=== PATIENT | female | born 1975 | race Caucasian/White ===

== ENCOUNTER 2017-01-21 08:24 | Emergency (ER) | payer OTHER ==
[2017-01-21] MEDS ORDERED: HYDROmorphone 1 MG/ML 1 ML SYRINGE IVP STA ×2 (08:51→11:13)
[2017-01-21] MEDS ORDERED: SODIUM CHLORIDE 0.9% 1,000 ML IV ONE (08:51)
[2017-01-21] MEDS ORDERED: ONDANSETRON 4 MG/2 ML VIAL IVP STA (08:51)
--- NOTE | 2017-01-21 08:54 | ED ---
Abdominal Pain HPI - General Chief Complaint: Abdominal Pain Stated Complaint: bladder kidney infection Time Seen by Provider: 01/21/17 08:31 Source: patient, RN notes reviewed Mode of arrival: ambulatory Limitations: no limitations - History of Present Illness Initial Comments: Patient is a 41-year-old female presents to the emergency room for evaluation of left-sided flank pain and dysuria. Patient states last night she began experiencing suprapubic pain and pain/burning during urination. Patient states around 2:00 the morning the pain began radiating into her left flank area. Patient states she's also had diarrhea throughout the night. Patient denies new foods. Patient denies recent travel outside the country. Patient states she's feeling nauseous but denies vomiting. Patient denies any known fevers or chills. Patient denies chest pain or shortness of breath. Patient denies headache or dizziness. - Related Data Home Medications Medication Instructions Recorded Confirmed Cetirizine HCl [Zyrtec] 10 mg PO DAILY 01/21/17 01/21/17 Fluticasone Nasal [place] [Flonase 1 spray EA NOSTRIL BID PRN 01/21/17 01/21/17 Nasal [place]] Gabapentin [Neurontin] 100 mg PO TID 01/21/17 01/21/17 Ibuprofen [Motrin] 800 mg PO TID PRN 01/21/17 01/21/17 LORazepam [Ativan] 1 mg PO DAILY PRN 01/21/17 01/21/17 Meloxicam [Mobic] 15 mg PO DAILY PRN 01/21/17 01/21/17 Sertraline [Zoloft] 50 mg PO DAILY 01/21/17 01/21/17 traMADol HCL [Ultram] 50 mg PO DAILY PRN 01/21/17 01/21/17 Previous Rx's Medication Instructions Recorded HYDROcodone/APAP 5-325MG [[place] 1 tab PO Q6HR PRN #8 tab 01/21/17 5-325] Phenazopyridine [Pyridium] 200 mg PO TID #5 tablet 01/21/17 Sulfamethox-Tmp 800-160Mg [Bactrim 1 tab PO Q12HR 7 Days 01/21/17 DS 800-160 mg] Allergies Allergy/AdvReac Type Severity Reaction Status Date / Time codeine Allergy Rash/Hives Verified 01/21/17 09:17 Review of Systems ROS Statement: Those systems with pertinent positive or pertinent negative responses have been documented in the HPI. ROS Other: All systems not noted in ROS Statement are negative. Past Medical History Additional Past Medical History / Comment(s): back pain History of Any Multi-Drug Resistant Organisms: None Reported Past Surgical History: Section Past Psychological History: No Psychological Hx Reported Smoking Status: Current every day smoker Past Alcohol Use History: None Reported Past Drug Use History: None Reported General Exam - General Exam Comments Initial Comments: Sitting in exam room. No distress. Limitations: no limitations General appearance: alert, in no apparent distress Head exam: Present: atraumatic, normocephalic, normal inspection Eye exam: Present: normal appearance ENT exam: Present: normal exam Neck exam: Present: normal inspection Respiratory exam: Present: normal lung sounds bilaterally. Absent: respiratory distress Cardiovascular Exam: Present: regular rate, normal rhythm, normal heart sounds GI/Abdominal exam: Present: soft, normal bowel sounds. Absent: distended, tenderness, guarding, rebound, rigid Extremities exam: Present: normal inspection Back exam: Present: normal inspection, CVA tenderness (L). Absent: CVA tenderness (R) Neurological exam: Present: alert, oriented X3, CN II-XII intact, normal gait Psychiatric exam: Present: normal affect, normal mood Skin exam: Present: warm, dry, intact, normal color. Absent: rash Course Vital Signs 01/21/17 01/21/17 01/21/17 08:25 09:28 10:00 Temperature 98.8 F Pulse Rate 81 56 L 62 Respiratory 17 20 20 Rate Blood Pressure 133/77 131/60 137/70 O2 Sat by Pulse 98 100 99 Oximetry 01/21/17 01/21/17 01/21/17 11:00 11:38 12:00 Temperature 98.0 F Pulse Rate 70 73 57 L Respiratory 20 20 Rate Blood Pressure 134/62 170/74 131/59 O2 Sat by Pulse 97 98 Oximetry 01/21/17 12:52 Temperature 98.8 F Pulse Rate Respiratory Rate Blood Pressure O2 Sat by Pulse Oximetry Medical Decision Making - Medical Decision Making Patient's 41-year-old female presents to the emergency room for evaluation of dysuria and left-sided flank pain. CT shows no acute findings. Urinalysis suspicious for urinary tract infection. Patient will be treated for urinary tract infection. Patient was sent home with antibiotics and advised follow-up with primary care provider. Patient states she understands everything that was discussed with her. Return parameters discussed. Case discussed Dr. Phillips. - Lab Data Result diagrams: 01/21/17 08:48 01/21/17 08:48 Lab Results 01/21/17 01/21/17 01/21/17 Range/Units 08:28 08:28 08:48 WBC (3.8-10.6) k/uL RBC (3.80-5.40) m/uL Hgb (11.4-16.0) gm/dL Hct (34.0-46.0) % MCV (80.0-100.0) fL MCH (25.0-35.0) pg MCHC (31.0-37.0) g/dL RDW (11.5-15.5) % Plt Count (150-450) k/uL Neutrophils % % Lymphocytes % % Monocytes % % Eosinophils % % Basophils % % Neutrophils # (1.3-7.7) k/uL Lymphocytes # (1.0-4.8) k/uL Monocytes # (0-1.0) k/uL Eosinophils # (0-0.7) k/uL Basophils # (0-0.2) k/uL Sodium 143 (137-145) mmol/L Potassium 3.8 (3.5-5.1) mmol/L Chloride 110 H (98-107) mmol/L Carbon Dioxide 25 (22-30) mmol/L Anion Gap 8 mmol/L BUN 10 (7-17) mg/dL Creatinine 0.68 (0.52-1.04) mg/dL Est GFR (MDRD) Af Amer >60 (>60 ml/min/1.73 sqM) Est GFR (MDRD) Non-Af >60 (>60 ml/min/1.73 sqM) Glucose 105 H (74-99) mg/dL Calcium 9.5 (8.4-10.2) mg/dL Total Bilirubin 0.2 (0.2-1.3) mg/dL AST 16 (14-36) U/L ALT 14 (9-52) U/L Alkaline Phosphatase 58 (38-126) U/L Total Protein 6.0 L (6.3-8.2) g/dL Albumin 3.8 (3.5-5.0) g/dL Amylase 43 (30-110) U/L Lipase 134 (23-300) U/L Urine Color Yellow Urine Appearance Turbid H (Clear) Urine pH 6.0 (5.0-8.0) Ur Specific [place] 1.019 (1.001-1.035) Urine Protein 1+ H (Negative) Urine Glucose (UA) Negative (Negative) Urine Ketones Negative (Negative) Urine Blood Moderate H (Negative) Urine Nitrite Negative (Negative) Urine Bilirubin Negative (Negative) Urine Urobilinogen <2.0 (<2.0) mg/dL Ur Leukocyte Esterase Large H (Negative) Urine RBC 5 (0-5) /hpf Urine WBC 71 H (0-5) /hpf Urine WBC Clumps Many H (None) /hpf Ur Squamous Epith Cells 156 H (0-4) /hpf Urine Bacteria Moderate H (None) /hpf Urine Mucus Many H (None) /hpf Urine HCG, Qual Not Detected (Not Detectd) 01/21/17 Range/Units 08:48 WBC 8.2 (3.8-10.6) k/uL RBC 4.35 (3.80-5.40) m/uL Hgb 14.1 (11.4-16.0) gm/dL Hct 40.7 (34.0-46.0) % MCV 93.4 (80.0-100.0) fL MCH 32.3 (25.0-35.0) pg MCHC 34.6 (31.0-37.0) g/dL RDW 13.5 (11.5-15.5) % Plt Count 406 (150-450) k/uL Neutrophils % 66 % Lymphocytes % 26 % Monocytes % 5 % Eosinophils % 1 % Basophils % 1 % Neutrophils # 5.4 (1.3-7.7) k/uL Lymphocytes # 2.1 (1.0-4.8) k/uL Monocytes # 0.4 (0-1.0) k/uL Eosinophils # 0.1 (0-0.7) k/uL Basophils # 0.1 (0-0.2) k/uL Sodium (137-145) mmol/L Potassium (3.5-5.1) mmol/L Chloride (98-107) mmol/L Carbon Dioxide (22-30) mmol/L Anion Gap mmol/L BUN (7-17) mg/dL Creatinine (0.52-1.04) mg/dL Est GFR (MDRD) Af Amer (>60 ml/min/1.73 sqM) Est GFR (MDRD) Non-Af (>60 ml/min/1.73 sqM) Glucose (74-99) mg/dL Calcium (8.4-10.2) mg/dL Total Bilirubin (0.2-1.3) mg/dL AST (14-36) U/L ALT (9-52) U/L Alkaline Phosphatase (38-126) U/L Total Protein (6.3-8.2) g/dL Albumin (3.5-5.0) g/dL Amylase (30-110) U/L Lipase (23-300) U/L Urine Color Urine Appearance (Clear) Urine pH (5.0-8.0) Ur Specific [place] (1.001-1.035) Urine Protein (Negative) Urine Glucose (UA) (Negative) Urine Ketones (Negative) Urine Blood (Negative) Urine Nitrite (Negative) Urine Bilirubin (Negative) Urine Urobilinogen (<2.0) mg/dL Ur Leukocyte Esterase (Negative) Urine RBC (0-5) /hpf Urine WBC (0-5) /hpf Urine WBC Clumps (None) /hpf Ur Squamous Epith Cells (0-4) /hpf Urine Bacteria (None) /hpf Urine Mucus (None) /hpf Urine HCG, Qual (Not Detectd) - Radiology Data Radiology results: report reviewed, image reviewed Disposition Clinical Impression: Urinary tract infection Disposition: HOME SELF-CARE Condition: Good Instructions: Urinary Tract Infection in Women (ED) Additional Instructions: Take antibiotics as directed. Please follow up with primary care provider in 1- 2 days. If any new symptom arises or symptoms worsen, return to ER as soon as possible. Prescriptions: HYDROcodone/APAP 5-325MG [[place] 5-325] 1 tab PO Q6HR PRN #8 tab PRN Reason: Pain Sulfamethox-Tmp 800-160Mg [Bactrim DS 800-160 mg] 1 tab PO Q12HR 7 Days Phenazopyridine [Pyridium] 200 mg PO TID #5 tablet Referrals: Mai Duncan MD [Primary Care Provider] - 1-2 days Time of Disposition: 11:20
[2017-01-21 09:08] LABS: Basophils # (A) 0.1 k/uL (0-0.2); Basophils % (A) 1 %; CH 31.5; CHCM 33.9; Eosinophils # (A) 0.1 k/uL (0-0.7); Eosinophils % (A) 1 %; HCT 40.7 % (34.0-46.0); HGB 14.1 gm/dL (11.4-16.0); Luc # (Auto) 0.16; Luc % (Auto) 2; Lymphocytes # (A) 2.1 k/uL (1.0-4.8); Lymphocytes % (A) 26 %; MCH 32.3 pg (25.0-35.0); MCHC 34.6 g/dL (31.0-37.0); MCV 93.4 fL (80.0-100.0); Monocytes # (A) 0.4 k/uL (0-1.0); Monocytes % (A) 5 %; Neutrophils # (A) 5.4 k/uL (1.3-7.7); Neutrophils % (A) 66 %; RBC 4.35 m/uL (3.80-5.40); RDW 13.5 % (11.5-15.5); WBC 8.2 k/uL (3.8-10.6); WBC (Perox) 8.54
[2017-01-21 09:13] LABS: Appearance,Urine Turbid (Clear); Bacteria,Urine Moderate /hpf; Bilirubin,Urine Negative (Negative); Glucose,Urine (UA) Negative (Negative); Ketones,Urine Negative (Negative); Leukocyte Esterase,Urine Large (Negative); Mucus,Urine Many /hpf; Nitrite,Urine Negative (Negative); Particle Count 38142; Protein,Urine 1+ (Negative); RBC,Urine 5 /hpf (0-5); Specific Gravity,Urine 1.019 (1.001-1.035); Squamous Epithelial Cell,Urine 156 /hpf (0-4); UA Billing (MACRO vs. MICRO) MICRO; Urobilinogen,Urine <2.0 mg/dL (<2.0); WBC,Urine 71 /hpf (0-5)
--- NOTE | 2017-01-21 09:19 | XR ---
EXAMINATION TYPE: XR KUB DATE OF EXAM: 01/21/2017 CLINICAL DATA: 41 year-old female left flank pain and hematuria, [facility] COMPARISON: 04/26/2013 FINDINGS: Lung bases are clear. No evidence for free intraperitoneal air. No dilated small bowel or air-fluid levels. Scattered air and stool seen throughout the colon extendi ng distally into the rectum. No significant stool burden. There is an indeterminate 3 mm calcification in the right hemipelvis. Stable phleboliths in the left hemipelvis. IMPRESSION: 1. Indeterminate 3 mm calcification in the right hemipelvis, phlebolith versus distal ureteral calcul us. Clinically correlate. 2.No evidence of bowel obstruction or free intraperitoneal air.
[2017-01-21 09:26] LABS: ALT 14 U/L (9-52); AST 16 U/L (14-36); Alkaline Phosphatase 58 U/L (38-126); Amylase 43 U/L (30-110); Anion Gap 8 mmol/L; Blood Urea Nitrogen 10 mg/dL (7-17); Calcium 9.5 mg/dL (8.4-10.2); Carbon Dioxide 25 mmol/L (22-30); Chloride 110 mmol/L (98-107); Glucose 105 mg/dL (74-99); Non-African American GFR(MDRD) >60 (>60 ml/min/1.73 sqM); Potassium 3.8 mmol/L (3.5-5.1); Sodium 143 mmol/L (137-145); Total Bilirubin 0.2 mg/dL (0.2-1.3)
[2017-01-21 09:46] VITALS: RESP 20
[2017-01-21] MEDS ORDERED: KETOROLAC 30 MG/ML 1 ML VIAL IVP STA (10:12)
--- NOTE | 2017-01-21 10:44 | CT ---
EXAMINATION TYPE: CT abdomen pelvis wo con DATE OF EXAM: 01/21/2017 COMPARISON: NONE HISTORY: abdominal pain, hematuria CT DLP: 276.9 mGycm Automated exposure control for dose reduction was used. TECHNIQUE: Helical acquisition of images was performed from the lung bases through the pelvis. FINDINGS: LUNG BASES: Subsegmental linear changes most typical scar or atelectasis. The right cardiophrenic ang le mass measuring 3 cm.. LIVER/GB: Liver measures 23 cm.. PANCREAS: No significant abnormality is seen. SPLEEN: No significant abnormality is seen. ADRENALS: No significant abnormality is seen. KIDNEYS: No significant abnormality is seen. URINARY BLADDER: No significant abnormality is seen. ADENOPATHY: None visualized. OSSEOUS STRUCTURES: Vacuum disc and severe degenerative disc disease L4-5. BOWEL: No significant abnormality is seen. OTHER: Aorta of normal caliber. Calcifications in the pelvis appear vascular. IMPRESSION: 1. No evidence of renal calcification or hydronephrosis. 2. 3 cm right cardiophrenic angle mass could be on the basis of an area of lymphadenopathy. Correlate clinically. 3. Liver measures 23 cm correlate for hepatomegaly
[2017-01-21] MEDS ORDERED: PHENAZOPYRIDINE 200 MG TAB PO STA (11:23)
[2017-01-21 12:25] VITALS: BP 131/59; PULSE 57
[2017-01-21 12:53] VITALS: TEMP 98.8
== END 2017-01-21 12:53 | disposition home or self-care (01) ==
LOC: EC 08:24
DX: N39.0 Urinary tract infection, site not specified (principal); R11.0 Nausea; F17.200 Nicotine dependence, unspecified, uncomplicated; Z79.899 Other long term (current) drug therapy; Z88.5 Allergy status to narcotic agent
CPT/HCPCS: 99285; 96365; 96375 ×3; 96376; 96361; 36415; 80053; 82150; 83690; 85025; 81001; 81025; 87491; 87591; 74000; 74176; J2405; J0696; J1885; J1170

== ENCOUNTER 2017-01-23 15:15 | Emergency (ER) | payer OTHER ==
[2017-01-23] MEDS ORDERED: ONDANSETRON 4 MG/2 ML VIAL IVP STA (15:47)
[2017-01-23] MEDS ORDERED: KETOROLAC 30 MG/ML 1 ML VIAL IVP STA (15:48)
[2017-01-23] MEDS ORDERED: HYDROmorphone 1 MG/ML 1 ML SYRINGE IVP STA ×2 (15:48→18:42)
--- NOTE | 2017-01-23 15:53 | ED ---
General Adult HPI - General Chief complaint: Abdominal Pain Stated complaint: bladder infection/vomiting-revisit Time Seen by Provider: 01/23/17 15:33 Source: patient, RN notes reviewed Mode of arrival: ambulatory Limitations: no limitations - History of Present Illness Initial comments: Patient is a 41-year-old female presents to the emergency room for evaluation of flank pain. Patient states she was here about 2 days ago and diagnosed with urinary tract infection. Patient states she was given a dose of IV antibiotics and sent home with Bactrim. Patient states that the day after she was sent home she began with vomiting. Patient states she also began with diarrhea. Patient states that she has not been able to keep any of her medications down. Patient is having worsening flank pain. She states she had a fever last night but it broke. Patient states she still nauseous with vomiting. Patient states she's having lower abdominal discomfort. Patient denies chest pain or shortness of breath. Patient denies headache or dizziness. Patient states she still having burning during urination. - Related Data Home Medications Medication Instructions Recorded Confirmed Cetirizine HCl [Zyrtec] 10 mg PO DAILY 01/21/17 01/23/17 Fluticasone Nasal [place] [Flonase 1 spray EA NOSTRIL BID PRN 01/21/17 01/23/17 Nasal [place]] Gabapentin [Neurontin] 100 mg PO TID 01/21/17 01/23/17 Ibuprofen [Motrin] 800 mg PO TID PRN 01/21/17 01/23/17 LORazepam [Ativan] 1 mg PO DAILY PRN 01/21/17 01/23/17 Meloxicam [Mobic] 15 mg PO DAILY PRN 01/21/17 01/23/17 Sertraline [Zoloft] 50 mg PO DAILY 01/21/17 01/23/17 traMADol HCL [Ultram] 50 mg PO DAILY PRN 01/21/17 01/23/17 Phenazopyridine [Pyridium] 200 mg PO TID PRN 01/23/17 01/23/17 Previous Rx's Medication Instructions Recorded HYDROcodone/APAP 5-325MG [[place] 1 tab PO Q6HR PRN #8 tab 01/21/17 5-325] Sulfamethox-Tmp 800-160Mg [Bactrim 1 tab PO Q12HR 7 Days 01/21/17 DS 800-160 mg] Ondansetron Odt [Zofran Odt] 4 mg PO Q8HR PRN #12 tab 01/23/17 Allergies Allergy/AdvReac Type Severity Reaction Status Date / Time codeine Allergy Rash/Hives Verified 01/23/17 16:02 Review of Systems ROS Statement: Those systems with pertinent positive or pertinent negative responses have been documented in the HPI. ROS Other: All systems not noted in ROS Statement are negative. Past Medical History Additional Past Medical History / Comment(s): back pain History of Any Multi-Drug Resistant Organisms: None Reported Past Surgical History: Section Past Psychological History: No Psychological Hx Reported Smoking Status: Current every day smoker Past Alcohol Use History: None Reported Past Drug Use History: None Reported General Exam - General Exam Comments Initial Comments: Sitting in exam room, no acute distress. Limitations: no limitations General appearance: alert, in no apparent distress Head exam: Present: atraumatic, normocephalic, normal inspection Eye exam: Present: normal appearance ENT exam: Present: normal exam Neck exam: Present: normal inspection Respiratory exam: Present: normal lung sounds bilaterally. Absent: respiratory distress Cardiovascular Exam: Present: regular rate, normal rhythm, normal heart sounds GI/Abdominal exam: Present: soft, normal bowel sounds. Absent: distended, tenderness, guarding, rebound, rigid Extremities exam: Present: normal inspection Back exam: Present: normal inspection, CVA tenderness (R), CVA tenderness (L) Neurological exam: Present: alert, oriented X3, CN II-XII intact, normal gait Psychiatric exam: Present: normal affect, normal mood Skin exam: Present: warm, dry, intact, normal color. Absent: rash Course Vital Signs 01/23/17 01/23/17 01/23/17 15:29 16:30 18:11 Temperature 98.3 F Pulse Rate 85 61 75 Respiratory 20 16 16 Rate Blood Pressure 137/68 142/72 121/79 O2 Sat by Pulse 98 97 97 Oximetry Medical Decision Making - Medical Decision Making Patient is a 41-year-old female presents to the emergency room for evaluation of continuing flank pain. Patient was diagnosed with urinary tract infection 2 days ago. Patient returning for flank pain and vomiting. Labs show no concerning findings. Urinalysis still show signs of urinary tract infection. Patient was offered another CT with contrast. CT abdomen/pelvis again shows no acute findings. Patient will be given a dose of IV Rocephin and sent home. Patient advised to follow-up with primary care provider. Patient states she understands everything that was discussed with her. Return parameters discussed. Case discussed Dr. Rothman. - Lab Data Result diagrams: 01/23/17 16:20 01/23/17 16:20 Lab Results 01/23/17 01/23/17 01/23/17 Range/Units 16:20 16:20 16:20 WBC 8.6 (3.8-10.6) k/uL RBC 4.40 (3.80-5.40) m/uL Hgb 14.2 (11.4-16.0) gm/dL Hct 41.1 (34.0-46.0) % MCV 93.5 (80.0-100.0) fL MCH 32.3 (25.0-35.0) pg MCHC 34.5 (31.0-37.0) g/dL RDW 13.3 (11.5-15.5) % Plt Count 373 (150-450) k/uL Neutrophils % 79 % Lymphocytes % 16 % Monocytes % 3 % Eosinophils % 1 % Basophils % 1 % Neutrophils # 6.8 (1.3-7.7) k/uL Lymphocytes # 1.4 (1.0-4.8) k/uL Monocytes # 0.3 (0-1.0) k/uL Eosinophils # 0.0 (0-0.7) k/uL Basophils # 0.0 (0-0.2) k/uL Sodium 141 (137-145) mmol/L Potassium 4.4 (3.5-5.1) mmol/L Chloride 107 (98-107) mmol/L Carbon Dioxide 24 (22-30) mmol/L Anion Gap 10 mmol/L BUN 14 (7-17) mg/dL Creatinine 0.80 (0.52-1.04) mg/dL Est GFR (MDRD) Af Amer >60 (>60 ml/min/1.73 sqM) Est GFR (MDRD) Non-Af >60 (>60 ml/min/1.73 sqM) Glucose 87 (74-99) mg/dL Calcium 9.6 (8.4-10.2) mg/dL Magnesium 2.1 (1.6-2.3) mg/dL Total Bilirubin 0.3 (0.2-1.3) mg/dL AST 16 (14-36) U/L ALT 23 (9-52) U/L Alkaline Phosphatase 66 (38-126) U/L Total Protein 6.2 L (6.3-8.2) g/dL Albumin 3.9 (3.5-5.0) g/dL Urine Color Yellow Urine Appearance Clear (Clear) Urine pH 6.5 (5.0-8.0) Ur Specific [place] 1.024 (1.001-1.035) Urine Protein Trace H (Negative) Urine Glucose (UA) Negative (Negative) Urine Ketones 2+ H (Negative) Urine Blood Small H (Negative) Urine Nitrite Negative (Negative) Urine Bilirubin Negative (Negative) Urine Urobilinogen 2.0 (<2.0) mg/dL Ur Leukocyte Esterase Negative (Negative) Urine WBC 2 (0-5) /hpf Ur Squamous Epith Cells 4 (0-4) /hpf Urine Mucus Many H (None) /hpf - Radiology Data Radiology results: report reviewed, image reviewed Disposition Clinical Impression: Flank pain, Nausea & vomiting Disposition: HOME SELF-CARE Condition: Good Instructions: Flank Pain (ED) Additional Instructions: Take Zofran as needed for nausea. Continue taking antibiotics as directed. Please follow up with primary care provider in 24-48 hours for reevaluation. If any new symptom arises or symptoms worsen, return to ER as soon as possible. Prescriptions: Ondansetron Odt [Zofran Odt] 4 mg PO Q8HR PRN #12 tab PRN Reason: Nausea Referrals: Mai Duncan MD [Primary Care Provider] - 1-2 days Time of Disposition: 18:28
[2017-01-23 16:37] LABS: Basophils % (A) 1 %; CH 31.9; CHCM 34.3; Eosinophils % (A) 1 %; HCT 41.1 % (34.0-46.0); HDW 2.41; HGB 14.2 gm/dL (11.4-16.0); Luc # (Auto) 0.08; Luc % (Auto) 1; Lymphocytes # (A) 1.4 k/uL (1.0-4.8); Lymphocytes % (A) 16 %; MCH 32.3 pg (25.0-35.0); MCHC 34.5 g/dL (31.0-37.0); MCV 93.5 fL (80.0-100.0); Mean Platelet Volume 7.6; Monocytes # (A) 0.3 k/uL (0-1.0); Monocytes % (A) 3 %; Neutrophils # (A) 6.8 k/uL (1.3-7.7); Neutrophils % (A) 79 %; RDW 13.3 % (11.5-15.5); WBC 8.6 k/uL (3.8-10.6); WBC (Perox) 9.05
[2017-01-23 16:39] LABS: Appearance,Urine Clear (Clear); Bilirubin,Urine Negative (Negative); Glucose,Urine (UA) Negative (Negative); Ketones,Urine 2+ (Negative); Leukocyte Esterase,Urine Negative (Negative); Mucus,Urine Many /hpf; Nitrite,Urine Negative (Negative); PH, Urine 6.5 (5.0-8.0); Particle Count 7369; Protein,Urine Trace (Negative); Specific Gravity,Urine 1.024 (1.001-1.035); Squamous Epithelial Cell,Urine 4 /hpf (0-4); UA Billing (MACRO vs. MICRO) MICRO; WBC,Urine 2 /hpf (0-5)
[2017-01-23 16:49] LABS: ALT 23 U/L (9-52); AST 16 U/L (14-36); Alkaline Phosphatase 66 U/L (38-126); Anion Gap 10 mmol/L; Blood Urea Nitrogen 14 mg/dL (7-17); Calcium 9.6 mg/dL (8.4-10.2); Carbon Dioxide 24 mmol/L (22-30); Chloride 107 mmol/L (98-107); Glucose 87 mg/dL (74-99); Magnesium 2.1 mg/dL (1.6-2.3); Non-African American GFR(MDRD) >60 (>60 ml/min/1.73 sqM); Potassium 4.4 mmol/L (3.5-5.1); Sodium 141 mmol/L (137-145); Total Bilirubin 0.3 mg/dL (0.2-1.3); Total Protein 6.2 g/dL (6.3-8.2)
[2017-01-23] MEDS ORDERED: SODIUM CHLORIDE 0.9% 1,000 ML IV ONE (17:23)
[2017-01-23] MEDS ORDERED: RX INFO: IV CONTRAST WAS GIVEN 1 EACH MISC MISCELLANE PRN (17:26)
--- NOTE | 2017-01-23 18:03 | CT ---
EXAMINATION TYPE: CT abdomen pelvis w con DATE OF EXAM: 01/23/2017 COMPARISON: 01/21/2017 HISTORY: Abominal pain with vomiting and diarrhea. CT DLP: 384.4 mGycm Automated exposure control for dose reduction was used. TECHNIQUE: Helical acquisition of images was performed from the lung bases through the pelvis. CONTRAST: Performed without Oral Contrast and with IV Contrast, patient injected with 100 mL of Omnipaque 300. FINDINGS: Lung bases are clear. There is no pleural effusion. Heart size is normal. There is a 3 x 2 cm oval-sh aped low-density area adjacent to the right cardiac border that is probably a pericardial cyst. The liver spleen pancreas appear normal. Gallbladder appears normal. Bile ducts are not dilated. Ther e is no adrenal mass. Kidneys show satisfactory contrast opacification. There is no hydronephrosis. T here is no ascites. There is no sign of free air. I see no intestinal wall thickening. There are no d ilated loops. Appendix appears normal. There is no sign of a pelvic mass. Bladder distends smoothly. There is no retroperitoneal adenopathy. IMPRESSION: NEGATIVE CT SCAN OF THE ABDOMEN AND PELVIS. NORMAL APPENDIX. THERE IS PROBABLY A PERICARDIAL CYST WIT HOUT CHANGE COMPARED TO LAST EXAM.
[2017-01-23 19:08] VITALS: BP 123/80; PULSE 67; RESP 18; TEMP 97.5
== END 2017-01-23 20:00 | disposition home or self-care (01) ==
LOC: EC 15:15
DX: R10.9 Unspecified abdominal pain (principal); R11.2 Nausea with vomiting, unspecified; F17.200 Nicotine dependence, unspecified, uncomplicated; Z88.5 Allergy status to narcotic agent; Z79.899 Other long term (current) drug therapy
CPT/HCPCS: 99284; 96365; 96375 ×3; 96376; 96361; 36415; 80053; 83735; 85025; 81001; 87040; 87086; 74177; J2405; J0696; J1885; J1170; Q9967

== ENCOUNTER 2017-12-05 21:20 | Emergency (ER) | payer OTHER ==
[2017-12-05 21:39] VITALS: RESP 20
--- NOTE | 2017-12-05 22:05 | ED ---
Overdose HPI - General Chief Complaint: Overdose Stated Complaint: Over Dose Time Seen by Provider: 12/05/17 21:24 Source: patient, RN notes reviewed, old records reviewed Mode of arrival: EMS Limitations: no limitations - History of Present Illness Initial Comments: 42-year-old female presents to the emergency department today chief complaint of a heroin overdose. She's been using for the past few years. Patient states that she's had an overdose. She denies any other substance abuse besides Heroin. Patient was revived with Narcan. Apparently compressions were done prior to EMS arrival. Patient does complain of some chest pain. Denies suicide attempt. Worse with movement and palpation over the chest wall.Patient denies any recent fever, chills, shortness of breath, chest pain, back pain, abdominal pain, nausea vomiting, numbness or tingling, dysuria or hematuria, constipation or diarrhea, headaches or visual changes, or any other current symptoms - Related Data Home Medications Medication Instructions Recorded Confirmed Cetirizine HCl [Zyrtec] 10 mg PO DAILY 01/21/17 12/05/17 Gabapentin [Neurontin] 100 mg PO TID 01/21/17 12/05/17 Allergies Allergy/AdvReac Type Severity Reaction Status Date / Time codeine Allergy Rash/Hives Verified 12/05/17 21:39 Review of Systems ROS Statement: Those systems with pertinent positive or pertinent negative responses have been documented in the HPI. ROS Other: All systems not noted in ROS Statement are negative. Past Medical History Additional Past Medical History / Comment(s): back pain, hep c History of Any Multi-Drug Resistant Organisms: None Reported Past Surgical History: Section Past Psychological History: No Psychological Hx Reported Smoking Status: Current every day smoker Past Alcohol Use History: None Reported Past Drug Use History: Heroin, IV Drug Use General Exam - General Exam Comments Initial Comments: 42-year-old female. Alert and oriented. Limitations: no limitations General appearance: alert, in no apparent distress Head exam: Present: atraumatic, normocephalic, normal inspection Eye exam: Present: normal appearance, PERRL, EOMI. Absent: scleral icterus, conjunctival injection, periorbital swelling ENT exam: Present: normal exam, mucous membranes moist Neck exam: Present: normal inspection. Absent: tenderness, meningismus, lymphadenopathy Respiratory exam: Present: normal lung sounds bilaterally, other (Patient has tenderness over the sternum.). Absent: respiratory distress, wheezes, rales, rhonchi, stridor Cardiovascular Exam: Present: regular rate, normal rhythm, normal heart sounds. Absent: systolic murmur, diastolic murmur, rubs, gallop, clicks GI/Abdominal exam: Present: soft, normal bowel sounds. Absent: distended, tenderness, guarding, rebound, rigid Extremities exam: Present: normal inspection, full ROM, normal capillary refill. Absent: tenderness, pedal edema, joint swelling, calf tenderness Back exam: Present: normal inspection Neurological exam: Present: alert, oriented X3, CN II-XII intact Psychiatric exam: Present: normal affect, normal mood Course Vital Signs 12/05/17 12/05/17 12/05/17 21:36 22:00 22:26 Temperature 97.9 F Pulse Rate 82 79 58 L Respiratory 20 20 20 Rate Blood Pressure 120/78 125/65 122/56 O2 Sat by Pulse 96 99 99 Oximetry 12/05/17 23:26 Temperature 98.6 F Pulse Rate 67 Respiratory 20 Rate Blood Pressure 121/56 O2 Sat by Pulse 99 Oximetry - Reevaluation(s) Reevaluation #1: 12/05/17 23:19 Patient was reevaluated and resting on labor this time. Alert and oriented. She is with her boyfriend. Discussed that she is able to ambulate and difficulty and she's vomited she can go home. Patient agrees. Reviewed her chest x-ray which was normal and EKG which is normal. Discussed she has a chest contusion related to the compressions. Medical Decision Making - Medical Decision Making 42-year-old female presents to the emergency department today chief complaint of a heroin overdose. She's been using for the past few years. Patient states that she's had an overdose. She denies any other substance abuse besides Heroin. Patient was revived with Narcan. Apparently compressions were done prior to EMS arrival. Patient does complain of some chest pain. Worse with movement and palpation over the chest wall. EKG and CXR are reviewed and normal. This was an unitentional overdose. She remained in ER for 1.5 hours, is alert and oriented. Patient is finding ride home. Patient informed of chest contusion. Discussed motrin and tylenol for pain. Return parameters discussed. 12/05/17 22:08 EKG at 2202 shows sinus rhythm, normal EKG noted. Ventricular rate of 60 bpm. Was 126. QRS duration 94. QT QTc is 434 ms. No evidence of ST elevation or T- wave inversion. Notes of atrial or ventricular arrhythmias. - Radiology Data Radiology results: report reviewed Disposition Clinical Impression: Chest wall contusion, Heroin overdose Disposition: HOME SELF-CARE Condition: Good Instructions: Costochondritis (ED), Narcotic Abuse (ED) Additional Instructions: Patient has a follow-up with primary care provider. Motrin Tylenol for pain. Follow-up with outpatient services in regards to heroin substance abuse. Is patient prescribed a controlled substance at d/c from ED?: No When asked, does pt state using other controlled substances?: No If prescribed controlled substance>3 days was MAPS reviewed?: No If opioid is for acute pain is fill amount 7 days or less?: No If Rx opioid, was Start Talking consent form obtained?: No Referrals: None,Stated [Primary Care Provider] - 1-2 days Time of Disposition: 23:20
--- NOTE | 2017-12-05 22:17 | XR ---
EXAMINATION TYPE: XR chest 2V DATE OF EXAM: 12/05/2017 COMPARISON: NONE HISTORY: Chest pain TECHNIQUE: Frontal and lateral views of the chest are obtained. FINDINGS: Heart and mediastinum are normal. Lungs are clear. Diaphragm is normal. Bony thorax appear s normal. IMPRESSION: Normal chest
[2017-12-05 23:27] VITALS: BP 121/56; PULSE 67; TEMP 98.6
== END 2017-12-05 23:26 | disposition home or self-care (01) ==
LOC: EC 21:20
DX: T40.1X1A Poisoning by heroin, accidental (unintentional), initial encounter (principal); R11.10 Vomiting, unspecified; S20.219A Contusion of unspecified front wall of thorax, initial encounter; F17.200 Nicotine dependence, unspecified, uncomplicated; Z79.899 Other long term (current) drug therapy; Z88.5 Allergy status to narcotic agent; X58.XXXA Exposure to other specified factors, initial encounter
CPT/HCPCS: 71046; 93005; 99285

== ENCOUNTER 2018-05-03 05:08 | Emergency (ER) | payer OTHER ==
[2018-05-03] MEDS ORDERED: MORPHINE SULFATE 4 MG/ML SYRINGE IVP STA (05:09)
[2018-05-03] MEDS ORDERED: SODIUM CHLORIDE 0.9% 1,000 ML IV ONE (05:09)
[2018-05-03] MEDS ORDERED: ONDANSETRON 4 MG/2 ML VIAL IVP STA (05:09)
[2018-05-03 05:11] VITALS: RESP 16
[2018-05-03 05:32] LABS: Basophils # (A) 0.1 k/uL (0-0.2); Basophils % (A) 1 %; Eosinophils # (A) 0.2 k/uL (0-0.7); Eosinophils % (A) 2 %; HCT 38.5 % (34.0-46.0); HGB 12.3 gm/dL (11.4-16.0); Lymphocytes # (A) 1.8 k/uL (1.0-4.8); Lymphocytes % (A) 17 %; MCH 27.8 pg (25.0-35.0); MCHC 31.9 g/dL (31.0-37.0); MCV 87.3 fL (80.0-100.0); Mean Platelet Volume 7.5; Monocytes # (A) 0.6 k/uL (0-1.0); Monocytes % (A) 5 %; Neutrophils # (A) 7.5 k/uL (1.3-7.7); Neutrophils % (A) 72 %; Platelet Count 395 k/uL (150-450); RBC 4.41 m/uL (3.80-5.40); WBC 10.5 k/uL (3.8-10.6)
[2018-05-03 05:36] LABS: ALT 21 U/L (9-52); AST 32 U/L (14-36); Albumin 3.7 g/dL (3.5-5.0); Alkaline Phosphatase 92 U/L (38-126); Anion Gap 9 mmol/L; Appearance,Urine Cloudy (Clear); Bilirubin,Urine Negative (Negative); Blood Urea Nitrogen 20 mg/dL (7-17); Blood,Urine Negative (Negative); Calcium 9.5 mg/dL (8.4-10.2); Carbon Dioxide 24 mmol/L (22-30); Chloride 104 mmol/L (98-107); Color,Urine Yellow; Glucose 107 mg/dL (74-99); Glucose,Urine (UA) Negative (Negative); Ketones,Urine Negative (Negative); Leukocyte Esterase,Urine Moderate (Negative); Lipase 113 U/L (23-300); Mucus,Urine Occasional /hpf; Nitrite,Urine Negative (Negative); PH, Urine 6.5 (5.0-8.0); Potassium 4.8 mmol/L (3.5-5.1); Protein,Urine Negative (Negative); RBC,Urine 1 /hpf (0-5); Sodium 137 mmol/L (137-145); Specific Gravity,Urine 1.015 (1.001-1.035); Sperm,Urine Occasional /hpf; Squamous Epithelial Cell,Urine 9 /hpf (0-4); Total Bilirubin 0.4 mg/dL (0.2-1.3); Total Protein 7.5 g/dL (6.3-8.2); Urobilinogen,Urine <2.0 mg/dL (<2.0); WBC,Urine 3 /hpf (0-5)
--- NOTE | 2018-05-03 05:37 | ED ---
Abdominal Pain HPI - General Stated Complaint: abd pain Time Seen by Provider: 05/03/18 05:09 Source: patient, EMS Mode of arrival: EMS Limitations: no limitations - History of Present Illness Initial Comments: Him is a 42-year-old female who presents to the emergency department today for evaluation of upper abdominal pain. Patient reports that she's had pain for 2 days, pain began on Tuesday night after eating. Patient reports severe upper abdominal pain radiating to the right quadrant to left quadrant. Pain is associated with nausea. Pain is colicky in nature. She reports that when the pain And she begins very sweaty and feels nauseated. She reports she's been having diarrhea and reports multiple episodes of nonbloody diarrhea throughout the day today. She reports that she feels like her liver is swollen and is concerned that she may have hepatitis C. Patient reports that she used to donate blood regularly however last year when she began using IV heroin she was told that her blood had some abnormalities on and she was no longer allowed to donate blood. She never followed up on this but was concerned it may indicate that she has hepatitis C. Patient reports that her pain got worse this evening after eating bologna and drinking soda. She reports that she tried to treat her pain with hair when with no improvement in her discomfort. - Related Data Home Medications Medication Instructions Recorded Confirmed Cetirizine HCl [Zyrtec] 10 mg PO DAILY 01/21/17 12/05/17 Gabapentin [Neurontin] 100 mg PO TID 01/21/17 12/05/17 Previous Rx's Medication Instructions Recorded Pantoprazole Sodium [Protonix] 20 mg PO BID #60 tablet. 05/03/18 Sucralfate [Carafate] 1 gm PO ACHS #1 bottle 05/03/18 Allergies Allergy/AdvReac Type Severity Reaction Status Date / Time codeine Allergy Rash/Hives Verified 12/05/17 21:39 Review of Systems ROS Statement: Those systems with pertinent positive or pertinent negative responses have been documented in the HPI. ROS Other: All systems not noted in ROS Statement are negative. Past Medical History Additional Past Medical History / Comment(s): back pain, hep c History of Any Multi-Drug Resistant Organisms: None Reported Past Surgical History: Section Past Psychological History: No Psychological Hx Reported Smoking Status: Current every day smoker Past Alcohol Use History: None Reported Past Drug Use History: Heroin, IV Drug Use General Exam - General Exam Comments Initial Comments: Physical Exam GENERAL: Chronically ill-appearing, disheveled HENT: Normocephalic, Atraumatic. Poor dentition EYES: PERRL, EOMI PULMONARY: Unlabored respirations. No audible rales rhonchi or wheezing was noted. CARDIOVASCULAR: There is a regular rate and rhythm without any murmurs gallops or rubs. ABDOMEN: Soft with normal bowel sounds. Tenderness to palpation in bilateral upper quadrants SKIN: Skin is clear with no lesions or rashes and otherwise unremarkable. : Deferred NEUROLOGIC: Patient is alert and oriented x3. Moving all extremities spontaneously MUSCULOSKELETAL: Normal extremities with adequate strength and full range of motion. No lower extremity swelling or edema. No calf tenderness. PSYCHIATRIC: Normal psychiatric evaluation. Limitations: no limitations Limitations: no limitations Course Vital Signs 05/03/18 05/03/18 05:09 06:36 Temperature 98.8 F 97.1 F L Pulse Rate 71 60 Respiratory 16 16 Rate Blood Pressure 142/81 118/86 O2 Sat by Pulse 98 99 Oximetry Medical Decision Making - Medical Decision Making The patient was seen and evaluated, history is obtained from the patient Patient with 2 days of abdominal pain, nause and diarrhea Denies any suspicious food intake or sick contacts No history of abdominal surgery or disease Labs and KUB xray ordered Labs with no significant abnormalities, KUB x-ray with no evidence of obstructions or significant abnormalities GI cocktail was ordered Patient was reevaluated and reported a GI cocktail did seem to be helping. I discussed with the patient that she is likely suffering from peptic ulcer disease or GERD. I would recommend dietary modification, Protonix and Carafate and follow up with GI. This plan was discussed with patient expressed understanding, all questions pertaining care were answered best my ability patient was discharged home in stable condition. - Lab Data Result diagrams: 05/03/18 05:10 05/03/18 05:10 Lab Results 05/03/18 05/03/18 05/03/18 Range/Units 05:10 05:10 05:10 WBC 10.5 (3.8-10.6) k/uL RBC 4.41 (3.80-5.40) m/uL Hgb 12.3 (11.4-16.0) gm/dL Hct 38.5 (34.0-46.0) % MCV 87.3 (80.0-100.0) fL MCH 27.8 (25.0-35.0) pg MCHC 31.9 (31.0-37.0) g/dL RDW 14.0 (11.5-15.5) % Plt Count 395 (150-450) k/uL Neutrophils % 72 % Lymphocytes % 17 % Monocytes % 5 % Eosinophils % 2 % Basophils % 1 % Neutrophils # 7.5 (1.3-7.7) k/uL Lymphocytes # 1.8 (1.0-4.8) k/uL Monocytes # 0.6 (0-1.0) k/uL Eosinophils # 0.2 (0-0.7) k/uL Basophils # 0.1 (0-0.2) k/uL Sodium 137 (137-145) mmol/L Potassium 4.8 (3.5-5.1) mmol/L Chloride 104 (98-107) mmol/L Carbon Dioxide 24 (22-30) mmol/L Anion Gap 9 mmol/L BUN 20 H (7-17) mg/dL Creatinine 0.58 (0.52-1.04) mg/dL Est GFR (CKD-EPI)AfAm >90 (>60 ml/min/1.73 sqM) Est GFR (CKD-EPI)NonAf >90 (>60 ml/min/1.73 sqM) Glucose 107 H (74-99) mg/dL Calcium 9.5 (8.4-10.2) mg/dL Total Bilirubin 0.4 (0.2-1.3) mg/dL AST 32 (14-36) U/L ALT 21 (9-52) U/L Alkaline Phosphatase 92 (38-126) U/L Total Protein 7.5 (6.3-8.2) g/dL Albumin 3.7 (3.5-5.0) g/dL Lipase 113 (23-300) U/L Urine Color Urine Appearance (Clear) Urine pH (5.0-8.0) Ur Specific [place] (1.001-1.035) Urine Protein (Negative) Urine Glucose (UA) (Negative) Urine Ketones (Negative) Urine Blood (Negative) Urine Nitrite (Negative) Urine Bilirubin (Negative) Urine Urobilinogen (<2.0) mg/dL Ur Leukocyte Esterase (Negative) Urine RBC (0-5) /hpf Urine WBC (0-5) /hpf Ur Squamous Epith Cells (0-4) /hpf Urine Mucus (None) /hpf Urine Sperm (None) /hpf Urine HCG, Qual Not Detected (Not Detectd) 05/03/18 Range/Units 05:10 WBC (3.8-10.6) k/uL RBC (3.80-5.40) m/uL Hgb (11.4-16.0) gm/dL Hct (34.0-46.0) % MCV (80.0-100.0) fL MCH (25.0-35.0) pg MCHC (31.0-37.0) g/dL RDW (11.5-15.5) % Plt Count (150-450) k/uL Neutrophils % % Lymphocytes % % Monocytes % % Eosinophils % % Basophils % % Neutrophils # (1.3-7.7) k/uL Lymphocytes # (1.0-4.8) k/uL Monocytes # (0-1.0) k/uL Eosinophils # (0-0.7) k/uL Basophils # (0-0.2) k/uL Sodium (137-145) mmol/L Potassium (3.5-5.1) mmol/L Chloride (98-107) mmol/L Carbon Dioxide (22-30) mmol/L Anion Gap mmol/L BUN (7-17) mg/dL Creatinine (0.52-1.04) mg/dL Est GFR (CKD-EPI)AfAm (>60 ml/min/1.73 sqM) Est GFR (CKD-EPI)NonAf (>60 ml/min/1.73 sqM) Glucose (74-99) mg/dL Calcium (8.4-10.2) mg/dL Total Bilirubin (0.2-1.3) mg/dL AST (14-36) U/L ALT (9-52) U/L Alkaline Phosphatase (38-126) U/L Total Protein (6.3-8.2) g/dL Albumin (3.5-5.0) g/dL Lipase (23-300) U/L Urine Color Yellow Urine Appearance Cloudy H (Clear) Urine pH 6.5 (5.0-8.0) Ur Specific [place] 1.015 (1.001-1.035) Urine Protein Negative (Negative) Urine Glucose (UA) Negative (Negative) Urine Ketones Negative (Negative) Urine Blood Negative (Negative) Urine Nitrite Negative (Negative) Urine Bilirubin Negative (Negative) Urine Urobilinogen <2.0 (<2.0) mg/dL Ur Leukocyte Esterase Moderate H (Negative) Urine RBC 1 (0-5) /hpf Urine WBC 3 (0-5) /hpf Ur Squamous Epith Cells 9 H (0-4) /hpf Urine Mucus Occasional H (None) /hpf Urine Sperm Occasional H (None) /hpf Urine HCG, Qual (Not Detectd) Disposition Clinical Impression: Epigastric abdominal pain Disposition: HOME SELF-CARE Condition: Good Instructions: Diet for Stomach Ulcers and Gastritis (ED), Abdominal Pain (ED) Prescriptions: Pantoprazole Sodium [Protonix] 20 mg PO BID #60 tablet. Sucralfate [Carafate] 1 gm PO ACHS #1 bottle Is patient prescribed a controlled substance at d/c from ED?: No Referrals: None,Stated [Primary Care Provider] - 1-2 days Usman Tamayo MD [STAFF PHYSICIAN] - 1-2 days
--- NOTE | 2018-05-03 05:56 | XR ---
EXAMINATION TYPE: XR KUB DATE OF EXAM: 05/03/2018 COMPARISON: 01/21/2017 HISTORY: Abdominal pain TECHNIQUE: 2 views upright FINDINGS: There is no sign of intestinal obstruction or pneumoperitoneum. Fecal pattern is normal. Gauri ng bases appear clear. There are no pathologic calcifications over the kidneys. There is no sign of a mass. IMPRESSION: Nonacute abdomen. No change.
[2018-05-03] MEDS ORDERED: MAG HYDROX/AL HYDROX/SIMETH 30 ML, HYOSCYAMINE ELIXIR 10 ML, CIMETIDINE HCL 300 MG, LID... PO STA ×4 (06:02)
[2018-05-03 06:39] VITALS: BP 118/86; PULSE 60; TEMP 97.1
== END 2018-05-03 06:36 | disposition home or self-care (01) ==
LOC: EC 05:08
DX: R10.13 Epigastric pain (principal); R11.0 Nausea; R19.7 Diarrhea, unspecified; F17.200 Nicotine dependence, unspecified, uncomplicated; Z88.5 Allergy status to narcotic agent; Z79.899 Other long term (current) drug therapy
CPT/HCPCS: 36415; 80053; 83690; 85025; 81001; 81025; 74018; 99284; 96374; 96375; 96361; J2270; J2405

== ENCOUNTER 2019-02-13 20:21 | Inpatient (IN) | payer OTHER ==
[2019-02-13] MEDS ORDERED: AZITHROMYCIN 500 MG in SODIUM CHLORIDE 0.9% 250 ML IVPB STA (20:44)
[2019-02-13] MEDS ORDERED: SODIUM CHLORIDE 0.9% 1,000 ML IV STA ×3 (20:44→22:33)
[2019-02-13] MEDS ORDERED: methylPREDNISolone SOD SUCCI 125 MG/2 ML VIAL IV STA (20:44)
[2019-02-13] MEDS ORDERED: IPRATROPIUM-ALBUTEROL 3 ML NEB INHALATION STA (20:44)
[2019-02-13] MEDS ORDERED: ACETAMINOPHEN TAB 500 MG TAB PO STA (20:47)
[2019-02-13] MEDS ORDERED: KETOROLAC 30 MG/ML 1 ML VIAL IVP STA (20:48)
--- NOTE | 2019-02-13 20:49 | ED ---
SOB HPI - General Stated Complaint: Chest Pain Source: EMS Mode of arrival: EMS Limitations: no limitations - History of Present Illness Initial Comments: This 43-year-old white female presents with a complaint of shortness of breath as well as some chest pain. She states that she has had this for the last 5 days. She's had a cough with bloody sputum production. She has been running a temperature at home but she is unsure what it was as she has not measured it but she has felt hot. She has a temperature here of 101.5. She smokes approximately one half pack per day but not for the last several days. She does not have any known pulmonary disease. She denies any history of COPD or asthma. She denies any leg pain or swelling. There is been no history of DVT or PE. She states that the pain is in her bilateral chest and is more of a pleuritic type of pain. She has felt very weak at times. She is an active IV heroin user with last use this morning. She denies any other complaints or modifying factors. - Related Data Home Medications Medication Instructions Recorded Confirmed No Known Home Medications 02/13/19 02/13/19 Allergies Allergy/AdvReac Type Severity Reaction Status Date / Time codeine Allergy Rash/Hives Verified 02/13/19 21:08 Review of Systems ROS Statement: Those systems with pertinent positive or pertinent negative responses have been documented in the HPI. ROS Other: All systems not noted in ROS Statement are negative. Past Medical History Additional Past Medical History / Comment(s): back pain, hep c History of Any Multi-Drug Resistant Organisms: None Reported Past Surgical History: Section Past Psychological History: No Psychological Hx Reported Smoking Status: Current every day smoker Past Alcohol Use History: None Reported Past Drug Use History: Heroin, IV Drug Use General Exam - General Exam Comments Initial Comments: GENERAL: The patient is well nourished and well hydrated. VITAL SIGNS: Heart rate, blood pressure, respiratory rate reviewed as recorded in nurse's notes. EYES: Pupils are round and reactive. Extraocular movements are intact. No conjunctival / lid redness or swelling. ENT: No external evidence of injury, swelling, or ecchymosis. Airway is patent. Throat is clear. NECK: Nontender. No swelling or evidence of injury. No subcutaneous emphysema. Trachea is midline. No thyroid mass. HEART: Regular rate and rhythm. Good peripheral pulses. LUNGS/CHEST: There is scattered rhonchi noted bilaterally. No ecchymosis, subc utaneous emphysema, or tenderness. ABDOMEN: Abdomen soft without tenderness. No palpable masses or organomegaly. No peritoneal signs. No abdominal wall swelling or ecchymosis. EXTREMITIES: No extremity tenderness. Normal muscle tone and function. No thoracolumbar tenderness. NEUROLOGIC: Sensation is grossly intact. Cranial nerve exam reveals face is symmetrical, tongue is midline, speech is clear. SKIN: No abrasions or ecchymosis is noted. No induration or masses noted. PSYCHIATRIC: Alert and oriented. Appropriate behavior and judgment. Limitations: no limitations Course Vital Signs 02/13/19 02/13/19 02/13/19 20:23 20:46 21:16 Temperature 101.5 F H Pulse Rate 106 H 84 Respiratory 22 22 Rate Blood Pressure 116/65 O2 Sat by Pulse 98 Oximetry 02/13/19 02/13/19 02/13/19 21:25 21:26 21:36 Temperature Pulse Rate 84 84 88 Respiratory Rate Blood Pressure O2 Sat by Pulse Oximetry 02/13/19 02/13/19 22:12 23:35 Temperature 97.9 F Pulse Rate 90 74 Respiratory 18 18 Rate Blood Pressure 106/66 88/55 O2 Sat by Pulse 90 L 96 Oximetry Medical Decision Making - Medical Decision Making The patient is seen and examined. All diagnostics are reviewed. The EKG shows a sinus tachycardia at a rate of 101. There is nonspecific ST-T wave changes noted diffusely. The patient has a RI interval of 128, QRS duration of 86, and QTc interval 459. She does receive 2 DuoNeb breathing treatments as well as some IV Solu-Medrol. Anabiotic several Rocephin and Zithromax are initiated initially as it is felt as though she likely does have pneumonia. Her temperatures 101.5 and she does receive Toradol 30 mg IV as well as 1 g of Tylenol. The laboratory is reviewed and does show evidence of a hypokalemia, leukocytosis,, and urinary tract infection. The chest x-ray shows evidence of a multifocal pneumonia. Due to her history of intravenous drug abuse, the possibility of septic emboli is certainly possible. A CT angiogram of the chest was therefore ordered. Her temperature did drop but on recheck her blood pressure also is decreased in additional fluids are ordered. The radiologist later does call back and case is discussed and they do note a right lower lobe segmental pulmonary embolus. He also noticed some bilateral consolidations which could potentially be septic emboli versus multifocal pneumonia. She relates that there may possibly be a area of cavitation. The patient will be started on intravenous heparin for pulmonary emboli. Infectious disease will be consult at for his conditions as well. Plastic Surgery Nurse is consult didn't regard to likely endocarditis and septic emboli. Echocardiogram is ordered. Patient does receive some Dilaudid intravenously for pain. Her blood pressure did decrease at one point but does increase with fluids. She is given a total of 3 L of fluids at this time and her blood pressure is stable. It is felt as though she is significantly ill with a guarded prognosis. Case will be discussed with internal medicine in the near future. - Lab Data Result diagrams: 02/13/19 20:34 02/13/19 20:34 Lab Results 02/13/19 02/13/19 02/13/19 Range/Units 20:34 20:34 20:34 WBC 17.5 H (3.8-10.6) k/uL RBC 3.67 L (3.80-5.40) m/uL Hgb 10.3 L (11.4-16.0) gm/dL Hct 30.4 L (34.0-46.0) % MCV 82.9 (80.0-100.0) fL MCH 28.1 (25.0-35.0) pg MCHC 33.9 (31.0-37.0) g/dL RDW 14.2 (11.5-15.5) % Plt Count 212 (150-450) k/uL Neutrophils % 89 % Lymphocytes % 6 % Monocytes % 3 % Eosinophils % 1 % Basophils % 0 % Neutrophils # 15.5 H (1.3-7.7) k/uL Lymphocytes # 1.0 (1.0-4.8) k/uL Monocytes # 0.5 (0-1.0) k/uL Eosinophils # 0.1 (0-0.7) k/uL Basophils # 0.0 (0-0.2) k/uL PT (9.0-12.0) sec INR (<1.2) APTT (22.0-30.0) sec Sodium 125 L (137-145) mmol/L Potassium 3.0 L (3.5-5.1) mmol/L Chloride 85 L (98-107) mmol/L Carbon Dioxide 33 H (22-30) mmol/L Anion Gap 7 mmol/L BUN 15 (7-17) mg/dL Creatinine 0.70 (0.52-1.04) mg/dL Est GFR (CKD-EPI)AfAm >90 (>60 ml/min/1.73 sqM) Est GFR (CKD-EPI)NonAf >90 (>60 ml/min/1.73 sqM) Glucose 111 H (74-99) mg/dL Plasma Lactic Acid Sven (0.7-2.0) mmol/L Calcium 7.7 L (8.4-10.2) mg/dL Total Bilirubin 0.7 (0.2-1.3) mg/dL AST 27 (14-36) U/L ALT 15 (9-52) U/L Alkaline Phosphatase 76 (38-126) U/L Troponin I (0.000-0.034) ng/mL NT-Pro-B Natriuret Pep 1930 pg/mL Total Protein 5.9 L (6.3-8.2) g/dL Albumin 2.5 L (3.5-5.0) g/dL Urine Color Urine Appearance (Clear) Urine pH (5.0-8.0) Ur Specific [place] (1.001-1.035) Urine Protein (Negative) Urine Glucose (UA) (Negative) Urine Ketones (Negative) Urine Blood (Negative) Urine Nitrite (Negative) Urine Bilirubin (Negative) Urine Urobilinogen (<2.0) mg/dL Ur Leukocyte Esterase (Negative) Urine RBC (0-5) /hpf Urine WBC (0-5) /hpf Ur Squamous Epith Cells (0-4) /hpf Urine Bacteria (None) /hpf Hyaline Casts (0-2) /lpf Urine HCG, Qual (Not Detectd) 02/13/19 02/13/19 02/13/19 Range/Units 20:34 20:34 20:34 WBC (3.8-10.6) k/uL RBC (3.80-5.40) m/uL Hgb (11.4-16.0) gm/dL Hct (34.0-46.0) % MCV (80.0-100.0) fL MCH (25.0-35.0) pg MCHC (31.0-37.0) g/dL RDW (11.5-15.5) % Plt Count (150-450) k/uL Neutrophils % % Lymphocytes % % Monocytes % % Eosinophils % % Basophils % % Neutrophils # (1.3-7.7) k/uL Lymphocytes # (1.0-4.8) k/uL Monocytes # (0-1.0) k/uL Eosinophils # (0-0.7) k/uL Basophils # (0-0.2) k/uL PT 13.7 H (9.0-12.0) sec INR 1.3 H (<1.2) APTT 33.9 H (22.0-30.0) sec Sodium (137-145) mmol/L Potassium (3.5-5.1) mmol/L Chloride (98-107) mmol/L Carbon Dioxide (22-30) mmol/L Anion Gap mmol/L BUN (7-17) mg/dL Creatinine (0.52-1.04) mg/dL Est GFR (CKD-EPI)AfAm (>60 ml/min/1.73 sqM) Est GFR (CKD-EPI)NonAf (>60 ml/min/1.73 sqM) Glucose (74-99) mg/dL Plasma Lactic Acid Sven 1.0 (0.7-2.0) mmol/L Calcium (8.4-10.2) mg/dL Total Bilirubin (0.2-1.3) mg/dL AST (14-36) U/L ALT (9-52) U/L Alkaline Phosphatase (38-126) U/L Troponin I <0.012 (0.000-0.034) ng/mL NT-Pro-B Natriuret Pep pg/mL Total Protein (6.3-8.2) g/dL Albumin (3.5-5.0) g/dL Urine Color Urine Appearance (Clear) Urine pH (5.0-8.0) Ur Specific [place] (1.001-1.035) Urine Protein (Negative) Urine Glucose (UA) (Negative) Urine Ketones (Negative) Urine Blood (Negative) Urine Nitrite (Negative) Urine Bilirubin (Negative) Urine Urobilinogen (<2.0) mg/dL Ur Leukocyte Esterase (Negative) Urine RBC (0-5) /hpf Urine WBC (0-5) /hpf Ur Squamous Epith Cells (0-4) /hpf Urine Bacteria (None) /hpf Hyaline Casts (0-2) /lpf Urine HCG, Qual (Not Detectd) 02/13/19 02/13/19 Range/Units 21:17 21:17 WBC (3.8-10.6) k/uL RBC (3.80-5.40) m/uL Hgb (11.4-16.0) gm/dL Hct (34.0-46.0) % MCV (80.0-100.0) fL MCH (25.0-35.0) pg MCHC (31.0-37.0) g/dL RDW (11.5-15.5) % Plt Count (150-450) k/uL Neutrophils % % Lymphocytes % % Monocytes % % Eosinophils % % Basophils % % Neutrophils # (1.3-7.7) k/uL Lymphocytes # (1.0-4.8) k/uL Monocytes # (0-1.0) k/uL Eosinophils # (0-0.7) k/uL Basophils # (0-0.2) k/uL PT (9.0-12.0) sec INR (<1.2) APTT (22.0-30.0) sec Sodium (137-145) mmol/L Potassium (3.5-5.1) mmol/L Chloride (98-107) mmol/L Carbon Dioxide (22-30) mmol/L Anion Gap mmol/L BUN (7-17) mg/dL Creatinine (0.52-1.04) mg/dL Est GFR (CKD-EPI)AfAm (>60 ml/min/1.73 sqM) Est GFR (CKD-EPI)NonAf (>60 ml/min/1.73 sqM) Glucose (74-99) mg/dL Plasma Lactic Acid Sven (0.7-2.0) mmol/L Calcium (8.4-10.2) mg/dL Total Bilirubin (0.2-1.3) mg/dL AST (14-36) U/L ALT (9-52) U/L Alkaline Phosphatase (38-126) U/L Troponin I (0.000-0.034) ng/mL NT-Pro-B Natriuret Pep pg/mL Total Protein (6.3-8.2) g/dL Albumin (3.5-5.0) g/dL Urine Color Yellow Urine Appearance Cloudy H (Clear) Urine pH 8.0 (5.0-8.0) Ur Specific [place] 1.021 (1.001-1.035) Urine Protein 2+ H (Negative) Urine Glucose (UA) Negative (Negative) Urine Ketones Negative (Negative) Urine Blood Negative (Negative) Urine Nitrite Negative (Negative) Urine Bilirubin Negative (Negative) Urine Urobilinogen >12.0 (<2.0) mg/dL Ur Leukocyte Esterase Large H (Negative) Urine RBC 8 H (0-5) /hpf Urine WBC 47 H (0-5) /hpf Ur Squamous Epith Cells 8 H (0-4) /hpf Urine Bacteria Moderate H (None) /hpf Hyaline Casts 1 (0-2) /lpf Urine HCG, Qual Not Detected (Not Detectd) Disposition Clinical Impression: Dyspnea, Chest pain, Fever, Hemoptysis, Sinus tachycardia, Leukocytosis, Anemia, Hyponatremia, Hypokalemia, Urinary tract infection, Multifocal pneumonia, Intravenous drug abuse, Sepsis, Septic embolism, Pulmonary embolism Disposition: ADMITTED IP TO THIS HOSP Condition: Serious Is patient prescribed a controlled substance at d/c from ED?: No Referrals: None,Stated [Primary Care Provider] - 1-2 days Time of Disposition: 01:00 Decision Date: 02/14/19 Decision Time: 01:00
[2019-02-13 21:20] LABS: Basophils % (A) 0 %; Eosinophils # (A) 0.1 k/uL (0-0.7); Eosinophils % (A) 1 %; HCT 30.4 % (34.0-46.0); HGB 10.3 gm/dL (11.4-16.0); Lymphocytes % (A) 6 %; MCH 28.1 pg (25.0-35.0); MCHC 33.9 g/dL (31.0-37.0); MCV 82.9 fL (80.0-100.0); Mean Platelet Volume 7.7; Monocytes # (A) 0.5 k/uL (0-1.0); Monocytes % (A) 3 %; Neutrophils # (A) 15.5 k/uL (1.3-7.7); Neutrophils % (A) 89 %; Platelet Count 212 k/uL (150-450); RBC 3.67 m/uL (3.80-5.40); RDW 14.2 % (11.5-15.5); WBC 17.5 k/uL (3.8-10.6)
[2019-02-13 21:27] LABS: ALT 15 U/L (9-52); AST 27 U/L (14-36); African American GFR (CKD) >90 (>60 ml/min/1.73 sqM); Albumin 2.5 g/dL (3.5-5.0); Alkaline Phosphatase 76 U/L (38-126); Anion Gap 7 mmol/L; Blood Urea Nitrogen 15 mg/dL (7-17); Calcium 7.7 mg/dL (8.4-10.2); Carbon Dioxide 33 mmol/L (22-30); Chloride 85 mmol/L (98-107); Glucose 111 mg/dL (74-99); INR 1.3 (<1.2); Partial Thromboplastin Time 33.9 sec (22.0-30.0); Prothrombin Time 13.7 sec (9.0-12.0); Sodium 125 mmol/L (137-145); Total Bilirubin 0.7 mg/dL (0.2-1.3); Total Protein 5.9 g/dL (6.3-8.2)
[2019-02-13 21:43] LABS: Appearance,Urine Cloudy (Clear); Bacteria,Urine Moderate /hpf; Bilirubin,Urine Negative (Negative); Blood,Urine Negative (Negative); Color,Urine Yellow; Glucose,Urine (UA) Negative (Negative); Hyaline Casts,Urine 1 /lpf (0-2); Ketones,Urine Negative (Negative); Leukocyte Esterase,Urine Large (Negative); Nitrite,Urine Negative (Negative); Protein,Urine 2+ (Negative); RBC,Urine 8 /hpf (0-5); Specific Gravity,Urine 1.021 (1.001-1.035); Squamous Epithelial Cell,Urine 8 /hpf (0-4); Urobilinogen,Urine >12.0 mg/dL (<2.0)
--- NOTE | 2019-02-13 21:59 | XR ---
EXAMINATION: XR chest 2V DATE AND TIME: 02/13/2019 9:51 PM CLINICAL INDICATION: PHH; difficulty breathing TECHNIQUE: Departmental protocol COMPARISON: 11/27/2017 FINDINGS: The lungs show multifocal densely consolidative ill-defined opacities within the lower, mid , and upper lung zones bilaterally. These were not seen on the prior study. There is a differential d iagnosis for this pattern, and further characterization can be best obtained with CT chest w contrast if clinically indicated. The pleural spaces are negative. The cardiac silhouette is not enlarged. The remainder of the mediastinal silhouette is unremarkable. The skeletal structures and soft tissues are negative for acute findings. IMPRESSION: Radiographic pattern can correlate with a clinical diagnosis of multifocal pneumonia.
[2019-02-14] MEDS ORDERED: POTASSIUM CHLORIDE 20 MEQ in WATER FOR INJECTION 1 100ML.BAG IVPB ONE
[2019-02-14] MEDS ORDERED: SODIUM CHLORIDE 0.9% 1,000 ML IV STA (00:26)
[2019-02-14] MEDS ORDERED: HYDROmorphone 1 MG/ML 1 ML SYRINGE IVP STA (00:26)
[2019-02-14] MEDS ORDERED: VANCOMYCIN IV PER PHARMACY 1 EACH MISC MISCELLANE PRN (00:38)
[2019-02-14] MEDS ORDERED: PIPERACILLIN-TAZOBACTAM 3.375 GM in SODIUM CHLORIDE 0.9% 100 ML IVPB SCH (01:00)
[2019-02-14] MEDS ORDERED: VANCOMYCIN 1,000 MG in SODIUM CHLORIDE 0.9% 250 ML IVPB ONE ×2 (01:00→04:00)
[2019-02-14] MEDS ORDERED: HEPARIN SODIUM,PORCINE 10,000 UNIT/ML 1 ML VIAL IV ONE (01:01)
[2019-02-14] MEDS ORDERED: HEPARIN SODIUM,PORCINE 5,000 UNIT/ML 1 ML VIAL IV PRN (01:01)
--- NOTE | 2019-02-14 01:03 | CT ---
EXAM: CT Angiography Chest With Intravenous Contrast CLINICAL HISTORY: ITS.REASON CT Reason: Pain, shortness of breath Additional history includes IV drug abuse, hepatitis C. TECHNIQUE: Axial computed tomographic angiography images of the chest with intravenous contrast using pulmonary embolism protocol. CTDI is 5.1 mGy and DLP is 235 mGy-cm. This CT exam was performed using one or more of the following dose reduction techniques: automated exposure control, adjustment of the mA and/or kV according to patient size, and/or use of iterative reconstruction technique. MIP reconstructed images were created and reviewed. CONTRAST: 70 cc [id number] COMPARISON: No relevant prior studies available. FINDINGS: Artifacts: Motion artifact somewhat limits evaluation. Pulmonary arteries: Small pulmonary embolus in right lower lobe segmental artery. Aorta: No acute findings. No thoracic aortic aneurysm. Celiac trunk: Focal narrowing of the celiac trunk with poststenotic dilation. Series 603, image 94. Lungs: Multiple scattered foci of consolidation/airspace disease bilaterally throughout the lungs. Largest focus approximate 3-4 cm in the lingula. Some have somewhat nodular appearance. Small cavitary appearance of few of the areas, example series 601 image 71. Pleural space: Unremarkable. No significant effusion. No pneumothorax. Heart: Unremarkable. No cardiomegaly. No significant pericardial effusion. No evidence of RV dysfunction. Bones/joints: Unremarkable. Soft tissues: Mild body wall edema. Lymph nodes: Small and mildly enlarged right nodes. Liver: Hepatomegaly, partially visualized. Gallbladder and bile ducts: Mildly dilated common bile duct 7 mm, partially visualized. Limited evaluation. Spleen: Splenomegaly. IMPRESSION: 1. Small pulmonary embolus in right lower lobe segmental artery. 2. Multiple scattered foci of consolidation/airspace disease bilaterally throughout the lungs. Small cavitary appearance of few of the areas. Broad differential diagnosis includes infectious/inflammatory or neoplastic process. Favor septic emboli. Recommend follow-up/further workup. 3. Small and mildly enlarged right nodes. 4. Hepatomegaly, partially visualized. 5. Mildly dilated common bile duct 7 mm, partially visualized. Limited evaluation. 6. Splenomegaly. 7. Focal narrowing of the celiac trunk with poststenotic dilation may reflect median arcuate ligament syndrome. <MYCVCSECTION> Critical Value Communications 02/14/19 00:47 Call Doctor Regarding Pulmonary Embolism, called Dr. Cortez on 02/14 00:47 (-04:00)
[2019-02-14] MEDS ORDERED: ONDANSETRON 4 MG/2 ML VIAL IVP PRN (01:30)
[2019-02-14] MEDS: HEPARIN SOD,PORK IN 0.45% NACL 25,000 UNIT in 0.45% NACL 1 250ML.BAG IV SCH ×2 (02:39→20:59)
[2019-02-14] MEDS: HYDROmorphone 1 MG/ML 1 ML SYRINGE IVP PRN ×4 (04:24→19:58)
[2019-02-14] MEDS ORDERED: ENOXAPARIN 40 MG/0.4 ML SYRINGE SQ SCH (09:00)
[2019-02-14] MEDS: PANTOPRAZOLE 40 MG/10 ML VIAL IV SCH (09:01)
--- NOTE | 2019-02-14 09:49 | P.CRDCN ---
History of Present Illness Consult date: 02/14/19 Requesting physician: Case Luo Consult reason: chest pain Chief complaint: Chest pain History of present illness: This is a 43-year-old patient with no prior documented history of hyp ertension, nondiabetic, no hyperlipidemia, she does smoke cigarettes, and uses heroin IV. She states that she's been a heroin user for the past 2 years, prior to that she was a user of prescription drugs. She presents to the hospital on this occasion with symptoms of chest pain which she describes as a pressure sensation with associated sharp pains. Patient has also been running fevers. A CTA of the chest was performed on arrival here which revealed small pulmonary embolus in the right lower lobe segmental artery, multiple scattered foci of consolidation bilaterally throughout the lungs a broad differential diagnosis includes neoplastic process, it fevers septic emboli. Small and mildly enlarged right nodes. Hepatomegaly. Mildly dilated common bile duct. Splenomegaly. Chest x-ray shows multifocal pneumonia. EKG shows a sinus tachycardia with no acute changes. Blood pressure 96/68 with a heart rate in the 60s, 100% on room air. White blood cell count 17.5, hemoglobin 10.3, platelet count 212. Sodium 125, potassium 3.0, BUN 15 and creatinine 0.7. Troponins are negative 3. BNP level 1930. Patient did have a temperature of 101.5 on arrival here. The cultures positive for gram-positive cocci in clusters. A consultation has been requested with infectious disease. Echocardiogram with Doppler study has been performed, results are yet pending. Past Medical History Additional Past Medical History / Comment(s): back pain, hep c History of Any Multi-Drug Resistant Organisms: None Reported Past Surgical History: Section Past Psychological History: No Psychological Hx Reported Smoking Status: Current every day smoker Past Alcohol Use History: None Reported Past Drug Use History: Heroin, IV Drug Use Medications and Allergies Home Medications Medication Instructions Recorded Confirmed Type No Known Home Medications 02/13/19 02/13/19 History Allergies Allergy/AdvReac Type Severity Reaction Status Date / Time codeine Allergy Rash/Hives Verified 02/13/19 21:08 Physical Exam Vitals: Vital Signs Temp Pulse Pulse Resp BP BP Pulse Ox 02/14/19 07:07 94 F L 66 22 96/69 100 02/14/19 06:47 63 18 95/65 96 02/14/19 04:27 62 17 95/65 02/14/19 02:40 94.9 F L 02/14/19 02:35 79 18 96/68 96 02/14/19 01:08 97.4 F L 67 18 97/69 98 02/13/19 23:35 74 18 88/55 96 02/13/19 22:12 97.9 F 90 18 106/66 90 L 02/13/19 21:36 88 02/13/19 21:26 84 02/13/19 21:25 84 02/13/19 21:16 84 02/13/19 20:46 22 02/13/19 20:23 101.5 F H 106 H 22 116/65 98 Intake and Output 02/13/19 02/14/19 02/14/19 22:59 06:59 14:59 Other: Weight 61.235 kg PHYSICAL EXAMINATION: GENERAL: 43-year-old female in no acute distress at HEENT: Head is atraumatic, normocephalic. Pupils equal, round. Sclera anicteric. Conjunctiva are clear. Mucous membranes of the mouth are moist. Neck is supple. There is no elevated jugular venous pressure. No carotid bruit is heard. HEART EXAMINATION: Heart S1 S2 1 systolic murmur is heard. CHEST EXAMINATION: Lungs reveal scattered rhonchi and wheezing throughout. ABDOMEN: Soft, nontender. Bowel sounds are heard. No organomegaly noted. EXTREMITIES: 2+ peripheral pulses with no evidence of peripheral edema and no calf tenderness noted. NEUROLOGIC patient is awake, alert and oriented 3 . . Results 02/13/19 20:34 02/13/19 20:34 Cardiac Enzymes 02/13/19 02/13/19 02/14/19 Range/Units 20:34 20:34 02:31 AST 27 (14-36) U/L Troponin I <0.012 <0.012 (0.000-0.034) ng/mL 02/14/19 Range/Units 08:11 AST (14-36) U/L Troponin I <0.012 (0.000-0.034) ng/mL Coagulation 02/13/19 02/14/19 Range/Units 20:34 08:11 PT 13.7 H (9.0-12.0) sec APTT 33.9 H 43.2 H (22.0-30.0) sec CBC 02/13/19 Range/Units 20:34 WBC 17.5 H (3.8-10.6) k/uL RBC 3.67 L (3.80-5.40) m/uL Hgb 10.3 L (11.4-16.0) gm/dL Hct 30.4 L (34.0-46.0) % Plt Count 212 (150-450) k/uL Comprehensive Metabolic Panel 02/13/19 Range/Units 20:34 Sodium 125 L (137-145) mmol/L Potassium 3.0 L (3.5-5.1) mmol/L Chloride 85 L (98-107) mmol/L Carbon Dioxide 33 H (22-30) mmol/L BUN 15 (7-17) mg/dL Creatinine 0.70 (0.52-1.04) mg/dL Glucose 111 H (74-99) mg/dL Calcium 7.7 L (8.4-10.2) mg/dL AST 27 (14-36) U/L ALT 15 (9-52) U/L Alkaline Phosphatase 76 (38-126) U/L Total Protein 5.9 L (6.3-8.2) g/dL Albumin 2.5 L (3.5-5.0) g/dL Current Medications Generic Name Dose Route Start Last Admin Trade Name Freq PRN Reason Stop Dose Admin Albuterol/Ipratropium 3 ml 02/14/19 00:33 Duoneb 0.5 Mg-3 Mg/3 Ml Soln INHALATION RT-Q4H PRN shortness of breath Aspirin 325 mg 02/15/19 09:00 Aspirin PO DAILY [facility] Heparin Sodium (Porcine) 0 unit 02/14/19 01:01 Heparin IV PER PROTOCOL PRN Low PTT Protocol Hydromorphone HCl 1 mg 02/14/19 00:41 02/14/19 09:01 Dilaudid IVP 1 mg Q4H PRN Administration Pain Heparin Sodium/Sodium Chloride 250 mls @ 11.022 mls/hr 02/14/19 01:15 02/14/19 02:39 25,000 unit/ Sodium Chloride IV 18 units/kg/hr .[id number] GRACE 11.022 mls/hr Administration Protocol 18 UNITS/KG/HR Piperacillin Sod/Tazobactam 100 mls @ 25 mls/hr 02/14/19 11:00 Sod 3.375 gm/ Sodium Chloride IVPB Q8H GRACE Vancomycin HCl 1,000 mg/ 250 mls @ 125 mls/hr 02/14/19 12:00 Sodium Chloride IVPB Q8H GRACE Miscellaneous Information 1 each 02/15/19 11:00 Vancomycin Trough Due MISCELLANE 02/15/19 11:01 ONCE ONE Ondansetron HCl 8 mg 02/14/19 01:30 Zofran IVP Q8H PRN Nausea Pantoprazole Sodium 40 mg 02/14/19 09:00 02/14/19 09:01 Protonix IV 40 mg DAILY GRACE Administration Intake and Output 02/13/19 02/14/19 02/14/19 22:59 06:59 14:59 Other: Weight 61.235 kg 02/13/19 20:34 02/13/19 20:34 EKG Interpretations (text) EKG shows sinus tachycardia with no acute changes. Assessment and Plan Plan: Assessment and plan #1 atypical chest pain, not suggestive of acute coronary syndrome. Troponins negative 3. EKG shows a sinus tachycardia with no acute changes. #2 sepsis, temperature 101.5 on arrival, elevated white blood cell count, evidence of multifocal pneumonia on chest x-ray and CAT scan, evidence on CAT scan also of a pulmonary embolism and ossicle septic emboli, positive blood cultures #3 IV heroin drug use, current, over the past 3 years she states she uses up to 3 times daily #4 nicotine dependence Plan An echocardiogram with Doppler study has been performed, we will review the echo, possible endocarditis needs to be considered. Infectious disease has been consulted. Patient is currently on IV antibiotics. We'll decrease her aspirin to 81 mg daily. Continue0 you IV heparin at this time. Further recommendations to follow. DNP note has been reviewed, I agree with a documented findings and plan of care. Patient was seen and examined.
--- NOTE | 2019-02-14 09:59 | ECHOF ---
Referral Reason:cp MEASUREMENTS -------- HEIGHT: 165.1 cm WEIGHT: 61.2 kg BP: 96/69 RVIDd: 2.0 cm (< 3.3) IVSd: 0.9 cm (0.6 - 1.1) LVIDd: 3.4 cm (3.9 - 5.3) LVPWd: 1.0 cm (0.6 - 1.1) IVSs: 1.4 cm LVIDs: 1.7 cm LVPWs: 1.2 cm LAESV Index (A-L): 30.02 ml/m MV E Jamie: 0.96 m/s MV DecT: 263 ms MV A Jamie: 0.66 m/s MV E/A Ratio: 1.45 RAP: 15.00 mmHg RVSP: 34.92 mmHg FINDINGS -------- Sinus rhythm. This was a technically good study. The left ventricular size is normal. Left ventricular wall thickness is normal. Overall left vent ricular systolic function is normal with, an EF between 55 - 60 %. The right ventricle is normal in size. LA is midly dilated 29-33ml/m2. The right atrial size is normal. Interatrial and interventricular septum intact. Aortic valve is trileaflet and is mildly thickened. The mitral valve is normal. The mitral valve leaflets are mildly thickened. Mild mitral regurgita tion is present. Moderate tricuspid regurgitation present. Right ventricular systolic pressure is normal at < 35 mmH g. Moderate, mobile vegetation attached to the anterior tricuspic valve leaflet. There is no pulmonic regurgitation present. The aortic root size is normal. The inferior vena cava is mildly dilated. There is no pericardial effusion. CONCLUSIONS -------- 1. Sinus rhythm. 2. This was a technically good study. 3. The left ventricular size is normal. 4. Left ventricular wall thickness is normal. 5. Overall left ventricular systolic function is normal with, an EF between 55 - 60 %. 6. The right ventricle is normal in size. 7. LA is midly dilated 29-33ml/m2. 8. The right atrial size is normal. 9. Interatrial and interventricular septum intact. 10. Aortic valve is trileaflet and is mildly thickened. 11. The mitral valve is normal. 12. The mitral valve leaflets are mildly thickened. 13. Mild mitral regurgitation is present. 14. Moderate tricuspid regurgitation present. 15. Right ventricular systolic pressure is normal at < 35 mmHg. 16. Moderate, mobile vegetation attached to the anterior tricuspic valve leaflet. 17. There is no pulmonic regurgitation present. 18. The aortic root size is normal. 19. The inferior vena cava is mildly dilated. 20. There is no pericardial effusion. CORRECTIONS SERGEANT: Deborah Salmeron RDCS
[2019-02-14] MEDS: PIPERACILLIN-TAZOBACTAM 3.375 GM in SODIUM CHLORIDE 0.9% 100 ML IVPB SCH ×2 (11:22→19:59)
[2019-02-14] MEDS: LORazepam 2 MG/ML INJ IV PRN ×2 (11:23→22:29)
[2019-02-14] MEDS ORDERED: VANCOMYCIN 1,000 MG in SODIUM CHLORIDE 0.9% 250 ML IVPB SCH ×2 (12:00→16:00)
--- NOTE | 2019-02-14 12:20 | CONS ---
CONSULTATION PULMONARY/CRITICAL CARE CONSULTATION DATE OF CONSULTATION: February 14, 2019 This is a 43-year-old female that we were asked to see because of shortness of breath and chest pain. She has not been feeling well for about a week or so. She has also had a temperature elevation. In addition, she had cough with some bloody sputum. Her temperature has been up to almost 102 degrees. The patient states that she does not have a current family doctor and has not seen a doctor for about a year and a half. She does smoke cigarettes. She has been smoking nearly 30 years at a pack a day. In addition, she does use IV drugs including IV heroin. She also does smoke crack cocaine. Her chest x-ray showed diffuse patchy infiltrates with some cavitation. This is confirmed on a CT scan which also showed a right lower lobe pulmonary embolism. Finally, the echocardiogram showed vegetation on the anterior leads of the tricuspid valve. Hence, she has bacteremia and right-sided endocarditis with septic emboli into the lungs. The patient looks ill. She is somewhat diaphoretic. She is complaining of pain in the chest when she takes a deep breath and she has shortness of breath and cough. Again, this has been going on at least for 5 to 7 days. She typically shoots heroin in her right antecubital space. She denies any significant alcohol use. She does do crack cocaine as well and she does smoke cigarettes. CURRENT HOME MEDICATIONS: Her current home medications are none. ALLERGIES: CODEINE. MEDICAL HISTORY: Medical history includes chronic back pain and hepatitis C. SURGICAL HISTORY: Surgical history includes . SOCIAL HISTORY: Social history is positive for ongoing tobacco use with nicotine addiction for nearly 30 years. She uses alcohol infrequently. She does smoke crack cocaine and she uses IV heroin frequently. FAMILY HISTORY: Family history is not known. The patient was not able to tell me much about her family history. She assumed that everybody is relatively healthy. OCCUPATIONAL HISTORY: Occupational history is that she is currently not working. REVIEW OF SYSTEMS: CONSTITUTIONAL: Fever. NEUROLOGIC: Negative. HEENT: Negative. CARDIOVASCULAR: Chest pain. PULMONARY: Shortness of breath, chest pain, cough with occasional phlegm production and occasional hemoptysis. GI: Negative. : Negative. RHEUMATOLOGIC: Negative. IMMUNOLOGIC: Negative. ENDOCRINOLOGIC: Negative. DERMATOLOGIC: Negative. PHYSICAL EXAMINATION: VITAL SIGNS: Current vital signs are reviewed. Temperature is 97.2, heart rate 68, respiratory rate 20, blood pressure 101/59, mean 73, room air saturations between 98% to 100%. Appears in no acute distress. She does look acutely ill. She is somewhat diaphoretic. She is complaining of pain in her chest when she takes a deep breath. HEENT: Examination is grossly unremarkable. NECK: Supple. Full range of motion. No adenopathy. Neck veins are flat. CARDIOVASCULAR: Examination reveals regular rhythm and rate. Heart rate about 70 beats per minute. S1, S2 normal. No distinct murmur noted. LUNGS: Reveal a few scattered coarse rhonchi. Breath sounds are diminished. ABDOMEN: Soft. Bowel sounds are heard. EXTREMITIES: Are intact. No cyanosis, clubbing, or edema. SKIN: Without rash. NEUROLOGIC: Examination is brief but nonfocal. LAB DATA: Lab data is reviewed. White count 17.5, hemoglobin 10.3, hematocrit 30.4, platelet count 212,000. PT 13.7, INR 1.3, PTT 33.9. Most recent PTT 43.2. Sodium 125, potassium 3, chloride 85, CO2 is 33. Anion gap is 7. BUN and creatinine were 15 and 0.7. Glucose 111. Calcium 7.7. Total bilirubin 0.7. N terminal proBNP 1930 and troponin less than 0.012. Urine shows it to be cloudy. There is 2+ protein. Leukocyte esterase was large positive. RBCs were 8, WBCs are 47, squamous cells 8, moderate bacteria. HCG was not detectable. Chest x-ray and CT angiograms were reviewed. Echocardiogram was reviewed. So far, blood and urine cultures are negative. ASSESSMENT: 1. 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 The patient also has evidence of septic emboli in the lungs. These are multiple. 2. History of IV drug abuse. 3. History of smoking crack cocaine. 4. History of hepatitis C. 5. Tricuspid valve vegetation. 6. Probable chronic obstructive pulmonary disease. 7. Ongoing tobacco use with nicotine addiction. 8. Chronic tobacco dependence. 9. Anemia of chronic disease. 10.Electrolyte disturbances including hyponatremia and hypokalemia. PLAN: Cardiology has been consulted. The echocardiogram shows a vegetation in the anterior leaflet of the tricuspid valve. She is currently on antibiotics in form of vancomycin and Zosyn. Additional recommendations and suggestions are forthcoming. The patient's medications were reviewed. Cardiology is on the case. Infectious Disease should be on the case. Surgical consultation may be warranted. Additional recommendations and suggestions are forthcoming. Prognosis is poor. MMODL / IJN: [id number] /
[2019-02-14] MEDS ORDERED: VANCOMYCIN 1,250 MG in SODIUM CHLORIDE 0.9% 250 ML IVPB SCH (15:00)
[2019-02-14] MEDS ORDERED: Potassium Replacement Protocol 1 EACH MISC MISCELLANE PRN (16:10)
[2019-02-14] MEDS ORDERED: Magnesium Replacement Protocol 1 EACH MISC MISCELLANE PRN (16:10)
[2019-02-14 16:23] LABS: Potassium 3.3 mmol/L (3.5-5.1)
--- NOTE | 2019-02-14 18:38 | HP ---
HISTORY AND PHYSICAL DATE OF SERVICE: 02/14/2019 CHIEF COMPLAINTS: Shortness of breath, chest pain, fever, hemoptysis. HISTORY OF PRESENT ILLNESS: This 43-year-old woman with a past medical history of multiple medical problems including back pain, hepatitis C, history of IV drug abuse, has been to rehab recently. The patient apparently relapsed according to the family and the patient is complaining of fever, cough, hemoptysis, bloody sputum. The patient was running a temperature up to 101.5. The patient came to [facility] and admitted for further evaluation and treatment. In the ER, WBC elevated to 17.5 sodium 130, potassium 3. The patient also had a chest x-ray which was reviewed personally by me, showed multiple abnormalities and the patient also had a CTA was done which showed a small pulmonary embolism in the right lower segmental artery and multiple scattered foci of consolidation airspace disease, bilaterally with small cavitary appearance indicating possibly septic emboli and splenomegaly was also noted. The patient being closely monitored. A pulmonary and cardiology consultation has been sought. A 2D echo with Doppler was done which showed moderate mitral regurgitation. Cardiology has seen the patient. Cardiology following the patient closely. Staph aureus grown from the blood culture. PAST MEDICAL HISTORY: History of back pain, history of DJD, hepatitis C, polysubstance abuse. MEDICATIONS: The home medications are none. ALLERGIES: CODEINE. FAMILY HISTORY: No history of heart disease or strokes in the family. SOCIAL HISTORY: History of IV drug abuse. Polysubstance abuse. History of nicotine dependence. REVIEW OF SYSTEMS: ENT: No diminished vision. No diminished hearing. CARDIOVASCULAR as mentioned above. RESPIRATORY: As mentioned earlier. GI no nausea or vomiting. no dysuria or hematuria. NERVOUS SYSTEM: No numbness or weakness. ALLERGY/IMMUNOLOGY: No asthma or hayfever. MUSCULOSKELETAL as mentioned earlier. HEMATOLOGY/ONCOLOGY: No history of anemia. ENDOCRINE: No history of diabetes or hypothyroidism. CONSTITUTIONAL: As mentioned earlier. PSYCHIATRY: As mentioned earlier. PHYSICAL EXAMINATION: Alert and oriented times three. Pulse 74, Blood pressure 91/56. Respiration 22, temperature 97.2, pulse ox 98% on room air. HEENT: Conjunctivae normal. NECK: No JVD. No carotid bruit. CARDIOVASCULAR: S1, S2 muffled. Ejection systolic murmur present. RESPIRATIONS: Breath sounds diminished in the bases. A few scattered rhonchi and crackles. ABDOMEN: Soft, nontender. No mass palpable. LEGS: No edema. No swelling. NERVOUS SYSTEM: Higher functions as mentioned earlier. Moves all 4 limbs. No focal motor or sensory deficits. Lymphatics: No lymph nodes palpable in the neck, axillae or groin. SKIN: No ulcer, rash or bleeding. JOINTS: No active deforming arthropathy. LABS: WBC 17.2, hemoglobin 10.3. INR is 1.2, sodium 125, potassium 3, UA noted. ASSESSMENT: 1. Possible bilateral pneumonia possibly septic emboli secondary to infective endocarditis present on admission with possible sepsis present on admission. 2. History IV drug abuse. 3. Hyponatremia. 4. Hypokalemia. 5. Anemia of chronic disease. 6. Possible urinary tract infection. 7. History of back pain. 8. History of hepatitis C. 9. History of nicotine dependence. 10.Polysubstance abuse. RECOMMENDATIONS AND DISCUSSION: In this 43-year-old woman who presented with multiple complex medical issues, we will monitor the patient closely, continue the current medications, management and symptomatic treatment. The patient is being started on broad spectrum IV antibiotics including Zosyn and vancomycin. Infectious Disease has been evaluated. The initial culture showed Staph aureus. Cardiology following the patient closely. I would recommend to follow the patient with cardiology with possible NASREEN. Otherwise pulmonary Dr. Dennis is also seeing the patient. Guarded prognosis because of multiple complex medical issues. Further recommendations to follow. DVT prophylaxis and also recommend the patient follow up with primary physician closely as well as continue with the rehab process as well. The family is willing to support at this time. Both parents. Once again the prognosis is extremely guarded because of multiple complex medical issues. Further recommendations to follow. MMODL / IJN: [id number] /
[2019-02-14] MEDS: cloNIDine HCL 0.1 MG TAB PO SCH (19:58)
--- NOTE | 2019-02-14 22:26 | P.CONS ---
History of Present Illness - Reason for Consult Consult date: 02/14/19 - Chief Complaint Fever - History of Present Illness 43-year-old female who family relates is in a prison house at this time because of her heroin use. Is brought to the emergency center because of fevers chills and altered mental status. It is and the patient remains a poor historian and her family is able to relate that she's had great difficulties with her drug use. The mother relates that the current setting is supposed to discourage drug use, however it appears that she is actively still using heroin. At presentation because of her fever and chills workup was initiated which has included chest x-ray which shows evidence of multiple pneumonia. Computed tomography scan of the chest was performed because of pleuritic chest pain that verifies multifocal pneumonia as well as a pulmonary embolus. 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 With all these findings as well as the positive blood culture resulted in infectious diseases consultation. Review of Systems HEENT: Feels poorly headache but no difficulty swallowing Lungs: Shortness of breath with cough Cardiovascular: Shortness of breath was occurring the right-sided chest pain that appeared to be pleuritic Gastrointestinal: Poor appetite with nausea but no emesis Musculoskeletal: Generalized myalgias Skin: Denies new rash or lesions. No new ulcers or wounds are related.. Neuro: Headache but no visual change. No seizures Psychiatric: Chronic polysubstance abuse Endocrine: Chronic fatigue and has lost weight. Past Medical History Additional Past Medical History / Comment(s): back pain, hep c History of Any Multi-Drug Resistant Organisms: None Reported Past Surgical History: Section Past Psychological History: No Psychological Hx Reported Additional Psychological History / Comment(s): Single. Lives in a prison house. 2 children ages 20 and 17 live in [place] with her father. Patient's parents are present at the hospital. She has a strong support group but does not utilize it well. Active injection drug use, heroin. Positive tobacco use positive marijuana use. 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 No experience. No travel. No animal exposures Smoking Status: Current every day smoker Past Alcohol Use History: None Reported Past Drug Use History: Heroin, IV Drug Use Medications and Allergies Home Medications and Allergies Comment(s): Current Medications Albuterol/Ipratropium (Duoneb 0.5 Mg-3 Mg/3 Ml Soln) 3 ml INHALATION RT-Q4H PRN PRN Reason: shortness of breath Aspirin (Aspirin) 325 mg PO DAILY [facility] Clonidine (Catapres) 0.1 mg PO TID [facility] Last Admin: 02/14/19 19:58 Dose: 0.1 mg Documented by: Heparin Sodium (Porcine) (Heparin) 0 unit IV PER PROTOCOL PRN; Protocol PRN Reason: Low PTT Hydromorphone HCl (Dilaudid) 1 mg IVP Q4H PRN PRN Reason: Pain Last Admin: 02/14/19 19:58 Dose: 1 mg Documented by: Heparin Sodium/Sodium Chloride (25,000 unit/ Sodium Chloride) 250 mls @ 11.022 mls/hr IV .[id number] [facility]; Protocol Last Admin: 02/14/19 20:59 Dose: Not Given Documented by: Cefazolin Sodium 2 gm/ Sodium (Chloride) 50 mls @ 100 mls/hr IVPB Q8H [facility] Last Admin: 02/14/19 20:22 Dose: 100 mls/hr Documented by: Lorazepam (Ativan) 0.5 mg IV Q4HR PRN PRN Reason: Anxiety Last Admin: 02/14/19 11:23 Dose: 0.5 mg Documented by: Miscellaneous Information (Vancomycin Trough Due) 1 each MISCELLANE ONCE ONE Stop: 02/15/19 15:01 Miscellaneous Information (Magnesium Per Protocol) 1 each MISCELLANE DAILY PRN; Protocol PRN Reason: Per Protocol Miscellaneous Information (Potassium Per Protocol) 1 each MISCELLANE DAILY PRN; Protocol PRN Reason: Per Protocol Nicotine (Habitrol 21mg/24hr Patch) 1 patch TRANSDERM DAILY [facility] Ondansetron HCl (Zofran) 8 mg IVP Q8H PRN PRN Reason: Nausea Pantoprazole Sodium (Protonix) 40 mg IV DAILY [facility] Last Admin: 02/14/19 09:01 Dose: 40 mg Documented by: Home Medications Medication Instructions Recorded Confirmed Type No Known Home Medications 02/13/19 02/13/19 History Allergies Allergy/AdvReac Type Severity Reaction Status Date / Time codeine Allergy Rash/Hives Verified 02/13/19 21:08 Physical Exam Vitals: Vital Signs Temp Pulse Pulse Resp BP BP Pulse Ox 02/14/19 20:13 96 02/14/19 20:00 97.7 F 79 18 100/54 98 02/14/19 16:00 97.3 F L 73 19 113/84 97 02/14/19 12:00 97.3 F L 74 22 91/57 99 02/14/19 08:00 97.2 F L 68 20 101/59 98 02/14/19 07:07 94 F L 66 22 96/69 100 02/14/19 06:47 63 18 95/65 96 02/14/19 04:27 62 17 95/65 02/14/19 02:40 94.9 F L 02/14/19 02:35 79 18 96/68 96 02/14/19 01:08 97.4 F L 67 18 97/69 98 02/13/19 23:35 74 18 88/55 96 Intake and Output 02/14/19 02/14/19 02/14/19 06:59 14:59 22:59 Intake Total 563.583 342 Output Total 400 Balance 163.583 342 Intake: Intake, IV Titration 83.583 Amount Heparin Sod,Pork in 0.45% 83.583 NaCl 25,000 unit In 0.45 % NaCl 1 250ml.bag @ 18 UNITS/KG/HR 11.022 mls/hr IV .[id number] [facility] Rx#: [id number] Oral 480 342 Output: Urine 400 Other: Voiding Method Bedpan # Voids 1 # Bowel Movements 1 43-year-old woman, kadeem HEENT: Anicteric conjunctiva are pink and moist nasal mucosa grossly intact without significant lesions, there is no thrush. Poor dentition Neck: The neck is supple without significant lymphadenopathy or thyromegaly. Lungs: Symmetrical air entry with wheezing throughout the lung avalos Aufranc bronchial sounds Heart: Regular rate and rhythm with an audible audible S1 and S2 soft S4 no significant murmur is noted Abdomen: Positive bowel sounds soft and nontender without palpable masses or organomegaly. There was no guarding or rebound. Extremities: The upper extremities have excellent pulses they are symmetric, no significant petechiae or telangiectasia. No splinter hemorrhages were noted. The lower extremities are free from significant edema. The peripheral pulses were 2+ and symmetric. Neuro: Arousable poor historian. But able to move all extremities. Results CBC & Chem 7: 02/13/19 20:34 02/14/19 08:00 Labs: Laboratory Results WBC 17.5 k/uL (3.8-10.6) H 02/13/19 20:34 RBC 3.67 m/uL (3.80-5.40) L 02/13/19 20:34 Hgb 10.3 gm/dL (11.4-16.0) L 02/13/19 20:34 Hct 30.4 % (34.0-46.0) L 02/13/19 20:34 MCV 82.9 fL (80.0-100.0) 02/13/19 20:34 MCH 28.1 pg (25.0-35.0) 02/13/19 20:34 MCHC 33.9 g/dL (31.0-37.0) 02/13/19 20:34 RDW 14.2 % (11.5-15.5) 02/13/19 20:34 Plt Count 212 k/uL (150-450) 02/13/19 20:34 Neutrophils % 89 % 02/13/19 20:34 Lymphocytes % 6 % 02/13/19 20:34 Monocytes % 3 % 02/13/19 20:34 Eosinophils % 1 % 02/13/19 20:34 Basophils % 0 % 02/13/19 20:34 Neutrophils # 15.5 k/uL (1.3-7.7) H 02/13/19 20:34 Lymphocytes # 1.0 k/uL (1.0-4.8) 02/13/19 20:34 Monocytes # 0.5 k/uL (0-1.0) 02/13/19 20:34 Eosinophils # 0.1 k/uL (0-0.7) 02/13/19 20:34 Basophils # 0.0 k/uL (0-0.2) 02/13/19 20:34 PT 13.7 sec (9.0-12.0) H 02/13/19 20:34 INR 1.3 (<1.2) H 02/13/19 20:34 APTT 37.8 sec (22.0-30.0) H 02/14/19 18:46 Sodium 137 mmol/L (137-145) 02/14/19 08:00 Potassium 3.3 mmol/L (3.5-5.1) L 02/14/19 08:00 Chloride 102 mmol/L (98-107) 02/14/19 08:00 Carbon Dioxide 28 mmol/L (22-30) 02/14/19 08:00 Anion Gap 7 mmol/L 02/14/19 08:00 BUN 15 mg/dL (7-17) 02/13/19 20:34 Creatinine 0.70 mg/dL (0.52-1.04) 02/13/19 20:34 Est GFR (CKD-EPI)AfAm >90 (>60 ml/min/1.73 sqM) 02/13/19 20:34 Est GFR (CKD-EPI)NonAf >90 (>60 ml/min/1.73 sqM) 02/13/19 20:34 Glucose 111 mg/dL (74-99) H 02/13/19 20:34 Plasma Lactic Acid Sven 1.0 mmol/L (0.7-2.0) 02/13/19 20:34 Calcium 7.7 mg/dL (8.4-10.2) L 02/13/19 20:34 Total Bilirubin 0.7 mg/dL (0.2-1.3) 02/13/19 20:34 AST 27 U/L (14-36) 02/13/19 20:34 ALT 15 U/L (9-52) 02/13/19 20:34 Alkaline Phosphatase 76 U/L (38-126) 02/13/19 20:34 Troponin I <0.012 ng/mL (0.000-0.034) 02/14/19 08:11 NT-Pro-B Natriuret Pep 1930 pg/mL 02/13/19 20:34 Total Protein 5.9 g/dL (6.3-8.2) L 02/13/19 20:34 Albumin 2.5 g/dL (3.5-5.0) L 02/13/19 20:34 Urine Color Yellow 02/13/19 21:17 Urine Appearance Cloudy (Clear) H 02/13/19 21:17 Urine pH 8.0 (5.0-8.0) 02/13/19 21:17 Ur Specific [place] 1.021 (1.001-1.035) 08/06/19 21:17 Urine Protein 2+ (Negative) H 02/13/19 21:17 Urine Glucose (UA) Negative (Negative) 02/13/19 21:17 Urine Ketones Negative (Negative) 02/13/19 21:17 Urine Blood Negative (Negative) 02/13/19 21:17 Urine Nitrite Negative (Negative) 02/13/19 21:17 Urine Bilirubin Negative (Negative) 02/13/19 21:17 Urine Urobilinogen >12.0 mg/dL (<2.0) 02/13/19 21:17 Ur Leukocyte Esterase Large (Negative) H 02/13/19 21:17 Urine RBC 8 /hpf (0-5) H 02/13/19 21:17 Urine WBC 47 /hpf (0-5) H 02/13/19 21:17 Ur Squamous Epith Cells 8 /hpf (0-4) H 02/13/19 21:17 Urine Bacteria Moderate /hpf (None) H 02/13/19 21:17 Hyaline Casts 1 /lpf (0-2) 02/13/19 21:17 Urine HCG, Qual Not Detected (Not Detectd) 02/13/19 21:17 Microbiology 02/13/19 21:21 Blood Blood Culture Gram Stain - Preliminary 02/13/19 21:21 Blood Blood Culture - Preliminary Staphylococcus aureus 02/13/19 21:21 Blood Blood Culture - Final 02/13/19 21:17 Urine,Voided Urine Culture - Preliminary CT scan - chest: image reviewed (Multiple pulmonary emboli) Assessment and Plan (1) Intravenous drug abuse Current Visit: Yes Status: Acute Code(s): F19.10 - OTHER PSYCHOACTIVE SUBSTANCE ABUSE, UNCOMPLICATED SNOMED Code(s): 212386005 (2) Endocarditis of tricuspid valve Narrative/Plan: 43-year-old female who has history of active injection drug use with heroin presents to Hospital of feeling poorly with fevers chills altered mental status. Echocardiogram has revealed evidence of the tricuspid valve endocarditis without valvular dysfunction or destruction. If this point in time antibiotic therapy is altered to Ancef and high dose of 2 g IV piggyback every 8 hours. This will be continued while she is in hospital. First challenge will be to determine course of antibiotic the time of her discharge. May require utilizing once weekly intravenous antibiotic therapy at the infusion clinic. Will not be a candidate for daily IV antibiotic therapy. Follow blood cultures requested HIV and hepatitis testing are requested Beta hCG was negative Smoking cessation is advised. Family is updated to her current status. Current Visit: Yes Status: Acute Code(s): I36.8 - OTHER NONRHEUMATIC TRICUSPID VALVE DISORDERS SNOMED Code(s): 94818246 (3) MSSA bacteremia Current Visit: Yes Status: Acute Code(s): R78.81 - BACTEREMIA SNOMED Code(s): 706959702 (4) Multifocal pneumonia Current Visit: Yes Status: Acute Code(s): J18.9 - PNEUMONIA, UNSPECIFIED ORGANISM SNOMED Code(s): 008819532
[2019-02-15] MEDS: HYDROmorphone 1 MG/ML 1 ML SYRINGE IVP PRN ×5 (02:17→20:58)
[2019-02-15] MEDS: LORazepam 2 MG/ML INJ IV PRN ×5 (03:44→23:34)
[2019-02-15 07:56] LABS: Basophils % (A) 0 %; Eosinophils % (A) 0 %; HCT 30.4 % (34.0-46.0); HGB 10.1 gm/dL (11.4-16.0); Lymphocytes # (A) 1.5 k/uL (1.0-4.8); Lymphocytes % (A) 6 %; MCH 28.6 pg (25.0-35.0); MCHC 33.2 g/dL (31.0-37.0); MCV 86.4 fL (80.0-100.0); Mean Platelet Volume 8.4; Monocytes # (A) 0.6 k/uL (0-1.0); Monocytes % (A) 2 %; Neutrophils # (A) 22.1 k/uL (1.3-7.7); Neutrophils % (A) 90 %; Platelet Count 203 k/uL (150-450); RBC 3.52 m/uL (3.80-5.40); RDW 14.6 % (11.5-15.5); WBC 24.5 k/uL (3.8-10.6)
[2019-02-15 08:02] LABS: African American GFR (CKD) >90 (>60 ml/min/1.73 sqM); Anion Gap 5 mmol/L; Blood Urea Nitrogen 19 mg/dL (7-17); Calcium 7.8 mg/dL (8.4-10.2); Carbon Dioxide 28 mmol/L (22-30); Chloride 106 mmol/L (98-107); Glucose 94 mg/dL (74-99); Magnesium 1.9 mg/dL (1.6-2.3); Potassium 3.2 mmol/L (3.5-5.1); Sodium 139 mmol/L (137-145)
[2019-02-15] MEDS ORDERED: ASPIRIN 325 MG TAB PO SCH (09:00)
[2019-02-15] MEDS: cloNIDine HCL 0.1 MG TAB PO SCH ×3 (09:21→21:46)
[2019-02-15] MEDS: NICOTINE 21MG/24HR PATCH TRANSDERM SCH (09:22)
[2019-02-15] MEDS: PANTOPRAZOLE 40 MG/10 ML VIAL IV SCH (09:26)
[2019-02-15] MEDS: HEPARIN SOD,PORK IN 0.45% NACL 25,000 UNIT in 0.45% NACL 1 250ML.BAG IV SCH ×2 (09:43→15:35)
--- NOTE | 2019-02-15 10:19 | P.PN ---
Subjective Progress Note Date: 02/15/19 Principal diagnosis: Infective endocarditis with septic emboli The patient is seen today 02/15/2019 in follow-up on the regular medical floor. She is currently resting comfortably in bed. She was going through withdrawals with agitation and restlessness and has been given Ativan and Dilaudid. Her parents are at the bedside. She is maintaining O2 saturations in the 90s on 2 L/m per nasal cannula. Currently afebrile. He does have Staphylococcus aureus in her blood cultures. White count 24.5. Hemoglobin 10.1. Creatinine 0.50. She's is currently on Ancef per infectious disease. She is on heparin drip. Echocardiogram revealed evidence of the tricuspid valve endocarditis without valvular dysfunction or destruction. Plan is for NASREEN tomorrow. Objective - Vital Signs Vital signs: Vital Signs Temp 97.5 F L 02/15/19 03:07 Pulse 75 02/15/19 03:07 Resp 19 02/15/19 03:07 BP 95/65 02/15/19 03:07 Pulse Ox 98 02/15/19 03:07 Intake & Output 02/14/19 02/15/19 02/15/19 18:59 06:59 18:59 Intake Total 785.583 286.417 120 Output Total 400 Balance 385.583 286.417 120 Weight 65 kg Intake: Intake, IV Titration 83.583 166.417 Amount Heparin Sod,Pork in 0.45% 83.583 166.417 NaCl 25,000 unit In 0.45 % NaCl 1 250ml.bag @ 18 UNITS/KG/HR 11.022 mls/hr IV .[id number] [facility] Rx#: [id number] Oral 702 120 120 Output: Urine 400 Other: Voiding Method Bedpan Bedpan # Voids 1 1 # Bowel Movements 1 1 - Exam GENERAL EXAM: Alert, currently comfortable in no apparent distress. On 2 L nasal cannula. HEAD: Normocephalic. EYES: Normal reaction of pupils, equal size. NOSE: Clear with pink turbinates. THROAT: No erythema or exudates. NECK: No masses, no JVD. CHEST: No chest wall deformity. LUNGS: Equal air entry with no crackles, wheeze, rhonchi or dullness. CVS: S1 and S2 normal with no audible murmur, regular rhythm. ABDOMEN: No hepatosplenomegaly, normal bowel sounds, no guarding or rigidity. SPINE: No scoliosis or deformity SKIN: No rashes CENTRAL NERVOUS SYSTEM: No focal deficits, tone is normal in all 4 extremities. EXTREMITIES: There is no peripheral edema. No clubbing, no cyanosis. Peripheral pulses are intact. - Labs CBC & Chem 7: 02/15/19 07:00 02/15/19 07:00 Labs: Abnormal Lab Results - Last 24 Hours (Table) 02/14/19 02/14/19 02/15/19 Range/Units 08:00 18:46 03:26 WBC (3.8-10.6) k/uL RBC (3.80-5.40) m/uL Hgb (11.4-16.0) gm/dL Hct (34.0-46.0) % Neutrophils # (1.3-7.7) k/uL APTT 37.8 H 41.7 H (22.0-30.0) sec Potassium 3.3 L (3.5-5.1) mmol/L BUN (7-17) mg/dL Creatinine (0.52-1.04) mg/dL Calcium (8.4-10.2) mg/dL 02/15/19 02/15/19 02/15/19 Range/Units 07:00 07:00 07:00 WBC 24.5 H (3.8-10.6) k/uL RBC 3.52 L (3.80-5.40) m/uL Hgb 10.1 L (11.4-16.0) gm/dL Hct 30.4 L (34.0-46.0) % Neutrophils # 22.1 H (1.3-7.7) k/uL APTT 32.6 H (22.0-30.0) sec Potassium 3.2 L (3.5-5.1) mmol/L BUN 19 H (7-17) mg/dL Creatinine 0.50 L (0.52-1.04) mg/dL Calcium 7.8 L (8.4-10.2) mg/dL Microbiology - Last 24 Hours (Table) 02/13/19 21:17 Urine Culture - Final Urine,Voided 02/13/19 21:21 Blood Culture Gram Stain - Preliminary Blood Blood Culture - Preliminary Staphylococcus aureus 02/13/19 21:21 Blood Culture - Final Blood Assessment and Plan Assessment: Pression: #1 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 There are also septic emboli in the bilateral lungs. #2 History of IV heroin use. #3 History of smoking crack cocaine. #4 History of hepatitis C. Her left #5 Chronic obstructive pulmonary disease, suspected. #6 Chronic and ongoing tobacco dependence. #7 Anemia of chronic disease. Plan: The patient was seen and evaluated by Dr. Dennis. She is being treated for heroin withdrawal currently. The plan is for NASREEN tomorrow to further investigate the tricuspid valve vegetation. She remains on Ancef per ID services. We did spend significant time speaking with her parents who are present at the bedside and informed them of the seriousness of her illness. We'll continue to follow closely and make further recommendations based on her clinical status. I, the cosigning physician, performed a history & physical examination of the patient. Lungs sounds are clear. Maintaining good O2 saturations in the 90s on 2 L/m per nasal cannula. I discussed the assessment and plan of care with my nurse practitioner, Nayeli Westfall. I attest to the above note as dictated by her.
[2019-02-15 14:14] LABS: HIV 1 AB Non-Reactive (Non-Reactive); HIV AB P24 Non-Reactive (Non-Reactive); HIV P24 AG Non-Reactive (Non-Reactive)
--- NOTE | 2019-02-15 14:27 | P.PN ---
Subjective Progress Note Date: 02/15/19 This is a 43-year-old patient with no prior documented history of hypertension, nondiabetic, no hyperlipidemia, she does smoke cigarettes, and uses heroin IV. She states that she's been a heroin user for the past 2 years, prior to that she was a user of prescription drugs. She presents to the hospital on this occasion with symptoms of chest pain which she describes as a pressure sensation with associated sharp pains. Patient has also been running fevers. A CTA of the chest was performed on arrival here which revealed small pulmonary embolus in the right lower lobe segmental artery, multiple scattered foci of consolidation bilaterally throughout the lungs a broad differential diagnosis includes neoplastic process, it fevers septic emboli. Small and mildly enlarged right nodes. Hepatomegaly. Mildly dilated common bile duct. Splenomegaly. Chest x-ray shows multifocal pneumonia. EKG shows a sinus tachycardia with no acute changes. Blood pressure 96/68 with a heart rate in th e 60s, 100% on room air. White blood cell count 17.5, hemoglobin 10.3, platelet count 212. Sodium 125, potassium 3.0, BUN 15 and creatinine 0.7. Troponins are negative 3. BNP level 1930. Patient did have a temperature of 101.5 on arrival here. The cultures positive for gram-positive cocci in clusters. A consultation has been requested with infectious disease. Echocardiogram with Doppler study has been performed, results are yet pending. 02/15/2019 Patient's echocardiogram with Doppler study revealed a normal left ventricular systolic function, there is moderate tricuspid regurgitation with moderate sized mobile vegetation attached to the anterior tricuspid valve leaflet. Patient is definitely going through withdrawal today. Blood pressure 120/60 with a heart rate in the 70s, 98% on 2 L of oxygen. Parents are at bedside, patient has been advised that she'll need to undergo a transesophageal echocardiographic study tomorrow. The risks and the benefits were explained to the patient and her parents in detail, this will be performed tomorrow by Dr. Hatch. Objective - Vital Signs Vital signs: Vital Signs Temp 97.6 F 02/15/19 09:05 Pulse 76 02/15/19 09:05 Resp 18 02/15/19 09:05 BP 120/69 02/15/19 09:05 Pulse Ox 98 02/15/19 09:05 Intake & Output 02/14/19 02/15/19 02/15/19 18:59 06:59 18:59 Intake Total 785.583 286.417 342 Output Total 400 Balance 385.583 286.417 342 Weight 65 kg Intake: Intake, IV Titration 83.583 166.417 Amount Heparin Sod,Pork in 0.45% 83.583 166.417 NaCl 25,000 unit In 0.45 % NaCl 1 250ml.bag @ 18 UNITS/KG/HR 11.022 mls/hr IV .[id number] [facility] Rx#: [id number] Oral 702 120 342 Output: Urine 400 Other: Voiding Method Bedpan Bedpan Bedpan # Voids 1 1 1 # Bowel Movements 1 1 1 - Exam PHYSICAL EXAMINATION: GENERAL: 43-year-old female anxious and fidgety today HEENT: Head is atraumatic, normocephalic. Pupils equal, round. Sclera anicteric. Conjunctiva are clear. Mucous membranes of the mouth are moist. Neck is supple. There is no elevated jugular venous pressure. No carotid bruit is heard. HEART EXAMINATION: Heart S1 S2 1 systolic murmur is heard. CHEST EXAMINATION: Lungs reveal scattered rhonchi and wheezing throughout. ABDOMEN: Soft, nontender. Bowel sounds are heard. No organomegaly noted. EXTREMITIES: 2+ peripheral pulses with no evidence of peripheral edema and no calf tenderness noted. NEUROLOGIC patient is awake, alert and oriented 3 . - Labs CBC & Chem 7: 02/15/19 07:00 02/15/19 07:00 Labs: Abnormal Lab Results - Last 24 Hours (Table) 02/14/19 02/14/19 02/15/19 Range/Units 08:00 18:46 03:26 WBC (3.8-10.6) k/uL RBC (3.80-5.40) m/uL Hgb (11.4-16.0) gm/dL Hct (34.0-46.0) % Neutrophils # (1.3-7.7) k/uL APTT 37.8 H 41.7 H (22.0-30.0) sec Potassium 3.3 L (3.5-5.1) mmol/L BUN (7-17) mg/dL Creatinine (0.52-1.04) mg/dL Calcium (8.4-10.2) mg/dL 08/02/2602/15/19 02/15/19 Range/Units 07:00 07:00 07:00 WBC 24.5 H (3.8-10.6) k/uL RBC 3.52 L (3.80-5.40) m/uL Hgb 10.1 L (11.4-16.0) gm/dL Hct 30.4 L (34.0-46.0) % Neutrophils # 22.1 H (1.3-7.7) k/uL APTT 32.6 H (22.0-30.0) sec Potassium 3.2 L (3.5-5.1) mmol/L BUN 19 H (7-17) mg/dL Creatinine 0.50 L (0.52-1.04) mg/dL Calcium 7.8 L (8.4-10.2) mg/dL Microbiology - Last 24 Hours (Table) 02/13/19 21:17 Urine Culture - Final Urine,Voided 02/13/19 21:21 Blood Culture Gram Stain - Preliminary Blood Blood Culture - Preliminary Staphylococcus aureus Assessment and Plan Plan: Assessment and plan #1 atypical chest pain, not suggestive of acute coronary syndrome. Troponins negative 3. EKG shows a sinus tachycardia with no acute changes. #2 sepsis, temperature 101.5 on arrival, elevated white blood cell count, evidence of multifocal pneumonia on chest x-ray and CAT scan, evidence on CAT scan also of a pulmonary embolism and ossicle septic emboli, positive blood cultures #3 IV heroin drug use, current, over the past 3 years she states she uses up to 3 times daily #4 nicotine dependence Plan Echocardiogram with Doppler study did reveal a moderate-sized vegetation on the anterior tricuspid leaflet. will be scheduled tomorrow to undergo a transesophageal echocardiographic study by Dr. Hatch. Overall prognosis is guarded. DNP note has been reviewed, I agree with a documented findings and plan of care. Patient was seen and examined.
[2019-02-15] MEDS ORDERED: VANCOMYCIN TROUGH DUE 1 EACH MISC MISCELLANE ONE (15:00)
--- NOTE | 2019-02-15 16:12 | P.PN ---
Subjective Progress Note Date: 02/15/19 Principal diagnosis: This is a 43-year-old female with a past medical history of multiple medical problems who was admitted with an elevated white blood count hyponatremia and hypokalemia. A CTA was done showing a small pulmonary embolism in the right lower segmental artery and multiple scattered foci of consolidation airspace disease bilaterally with small cavitary appearance indicating possible septic emboli as being closely monitored. Pulmonary and cardiology are following. Patient is lying in bed in mild acute distress stating she is having side pain with father at the bedside. Patient is asking for more Dilaudid stating that the pain is severe. Patient denies any shortness of breath or chest pain at this time. Patient is twisting back and forth in bed stating that the site pain is severe. Patient denies any nausea or vomiting at this time. Patient is afebrile. Patient does have a history of polysubstance abuse and is having active withdrawals. Patient is to undergo a NASREEN in the morning. Patient is currently still on IV heparin drip. Guarded prognosis REVIEW OF SYSTEMS: ENT: No diminished vision or hearing. CARDIOVASCULAR: Mentioned earlier. RESPIRATORY: As mentioned earlier. GI: No nauscea, vomiting or diarrhea. : No dysuria or retention. NERVOUS SYSTEM: No numbness or weakness. ALLERGY/IMMUNOLOGY: No asthma or hay fever. MUSCULOSKELETAL: As mentioned earlier. HEMATOLOGY/ONCOLOGY: No history of anemia. ENDOCRINE: No history of diabetes or hypothyroidism. CONSTITUTIONAL: As mentioned earlier. DERMATOLOGY: Negative. PSYCHIATRY: Mentioned earlier. RHEUMATOLOGY: Negative. Active Medications Albuterol/Ipratropium (Duoneb 0.5 Mg-3 Mg/3 Ml Soln) 3 ml INHALATION RT-Q4H PRN PRN Reason: shortness of breath Clonidine (Catapres) 0.1 mg PO TID [facility] Last Admin: 02/15/19 15:34 Dose: 0.1 mg Documented by: Heparin Sodium (Porcine) (Heparin) 0 unit IV PER PROTOCOL PRN; Protocol PRN Reason: Low PTT Hydromorphone HCl (Dilaudid) 1 mg IVP Q4H PRN PRN Reason: Pain Last Admin: 02/15/19 13:08 Dose: 1 mg Documented by: Heparin Sodium/Sodium Chloride (25,000 unit/ Sodium Chloride) 250 mls @ 11.022 mls/hr IV .[id number] [facility]; Protocol Last Admin: 02/15/19 15:35 Dose: 26.53 units/kg/hr, 16.247 mls/hr Documented by: Cefazolin Sodium 2 gm/ Sodium (Chloride) 50 mls @ 100 mls/hr IVPB Q8H [facility] Last Admin: 02/15/19 13:06 Dose: 100 mls/hr Documented by: Lorazepam (Ativan) 0.5 mg IV Q4HR PRN PRN Reason: Anxiety Last Admin: 02/15/19 15:22 Dose: 0.5 mg Documented by: Miscellaneous Information (Magnesium Per Protocol) 1 each MISCELLANE DAILY PRN; Protocol PRN Reason: Per Protocol Miscellaneous Information (Potassium Per Protocol) 1 each MISCELLANE DAILY PRN; Protocol PRN Reason: Per Protocol Nicotine (Habitrol 21mg/24hr Patch) 1 patch TRANSDERM DAILY [facility] Last Admin: 02/15/19 09:22 Dose: 1 patch Documented by: Ondansetron HCl (Zofran) 8 mg IVP Q8H PRN PRN Reason: Nausea Pantoprazole Sodium (Protonix) 40 mg IV DAILY [facility] Last Admin: 02/15/19 09:26 Dose: 40 mg Documented by: Objective - Vital Signs Vital signs: Vital Signs Temp 97.6 F 02/15/19 09:05 Pulse 83 02/15/19 12:05 Resp 16 02/15/19 12:05 BP 104/75 02/15/19 12:05 Pulse Ox 98 02/15/19 12:05 Intake & Output 02/14/19 02/15/19 02/15/19 18:59 06:59 18:59 Intake Total 785.583 286.417 437.316 Output Total 400 Balance 385.583 286.417 437.316 Weight 65 kg Intake: Intake, IV Titration 83.583 166.417 95.316 Amount Heparin Sod,Pork in 0.45% 83.583 166.417 95.316 NaCl 25,000 unit In 0.45 % NaCl 1 250ml.bag @ 18 UNITS/KG/HR 11.022 mls/hr IV .[id number] [facility] Rx#: [id number] Oral 702 120 342 Output: Urine 400 Other: Voiding Method Bedpan Bedpan Bedpan # Voids 1 1 1 # Bowel Movements 1 1 1 - Exam Gen: This is a 43-year-old female sitting up in bed in mild acute distress due to pain. Vital signs are stable. Temp is 97.6, pulse is 83, respirations 16, blood pressure 104/75, oxygen saturation is 98% on 2 L nasal cannula. HEENT: Head is atraumatic, normocephalic. Pupils equal, round. Sclerae is anicteric. NECK: Supple. No JVD. No lymphadenopathy. No thyromegaly. LUNGS: Diminished in the bases with a few scattered rhonchi and crackles noted. No intercostal retractions. HEART: S1 and S2 are muffled with an ejection systolic murmur. ABDOMEN: Soft. Bowel sounds are present. No masses. No tenderness. EXTREMITIES: No pedal edema. No calf tenderness. NEUROLOGICAL: Patient is awake, alert and oriented x3. Cranial nerves 2 through 12 are grossly intact. - Labs CBC & Chem 7: 02/15/19 07:00 02/15/19 07:00 Labs: Abnormal Lab Results - Last 24 Hours (Table) 02/14/19 02/14/19 02/15/19 Range/Units 08:00 18:46 03:26 WBC (3.8-10.6) k/uL RBC (3.80-5.40) m/uL Hgb (11.4-16.0) gm/dL Hct (34.0-46.0) % Neutrophils # (1.3-7.7) k/uL APTT 37.8 H 41.7 H (22.0-30.0) sec Potassium 3.3 L (3.5-5.1) mmol/L BUN (7-17) mg/dL Creatinine (0.52-1.04) mg/dL Calcium (8.4-10.2) mg/dL Hep C IgG Ab (Non-Reactive) 02/15/19 02/15/19 02/15/19 Range/Units 07:00 07:00 07:00 WBC 24.5 H (3.8-10.6) k/uL RBC 3.52 L (3.80-5.40) m/uL Hgb 10.1 L (11.4-16.0) gm/dL Hct 30.4 L (34.0-46.0) % Neutrophils # 22.1 H (1.3-7.7) k/uL APTT (22.0-30.0) sec Potassium 3.2 L (3.5-5.1) mmol/L BUN 19 H (7-17) mg/dL Creatinine 0.50 L (0.52-1.04) mg/dL Calcium 7.8 L (8.4-10.2) mg/dL Hep C IgG Ab Reactive H (Non-Reactive) 02/15/19 Range/Units 07:00 WBC (3.8-10.6) k/uL RBC (3.80-5.40) m/uL Hgb (11.4-16.0) gm/dL Hct (34.0-46.0) % Neutrophils # (1.3-7.7) k/uL APTT 32.6 H (22.0-30.0) sec Potassium (3.5-5.1) mmol/L BUN (7-17) mg/dL Creatinine (0.52-1.04) mg/dL Calcium (8.4-10.2) mg/dL Hep C IgG Ab (Non-Reactive) Microbiology - Last 24 Hours (Table) 02/13/19 21:17 Urine Culture - Final Urine,Voided 02/13/19 21:21 Blood Culture Gram Stain - Preliminary Blood Blood Culture - Preliminary Staphylococcus aureus Assessment and Plan Assessment: Possible lateral pneumonia, possibly septic emboli secondary to infective endocarditis present on admission with possible sepsis present on admission History of IV drug abuse Hyponatremia Hypokalemia Anemia of chronic disease Possible urinary tract infection History of back pain History of hepatitis C History of nicotine dependence Polysubstance abuse Recommendations and discussion This is a 43-year-old woman who has multiple complex medical issues and will be monitored closely. Recommend continue current medications, management, and symptomatic treatment. The patient is on broad-spectrum IV antibiotics and will continue per infectious disease recommendations. Cardiology is following the patient closely. Patient is to undergo a NASREEN tomorrow. Will await report. Guarded prognosis due to the multiple complex medical issues. Limited visitation with only mother and father due to possible exposure of illicit drugs per parental recommendations. Patient is currently still on heparin IV for anti coagulation. Prognosis is extremely guarded. Further recommendations to follow.
--- NOTE | 2019-02-15 22:30 | P.PN ---
Subjective Progress Note Date: 02/15/19 43-year-old female who family relates is in a half-way house at this time because of her heroin use. Is brought to the emergency center because of fevers chills and altered mental status. It is and the patient remains a poor historian and her family is able to relate that she's had great difficulties with her drug use. The mother relates that the current setting is supposed to discourage drug use, however it appears that she is actively still using heroin. At presentation because of her fever and chills workup was initiated which has included chest x-ray which shows evidence of multiple pneumonia. Computed tomography scan of the chest was performed because of pleuritic chest pain that verifies multifocal pneumonia as well as a pulmonary embolus. 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 With all these findings as well as the positive blood culture resulted in infectious diseases consultation. 02/15/2019 patient continues to have difficulties with her narcotic withdrawal is anxious and agitated. Clonidine was added hopefully with some mild improveme nt. Fever is showing some improvement. Work up is in progress with cardiology and a NASREEN has now been planned given her tricuspid valve endocarditis. Objective - Vital Signs Vital signs: Vital Signs Temp 98.0 F 02/15/19 17:25 Pulse 87 02/15/19 17:25 Resp 16 02/15/19 17:25 BP 122/73 02/15/19 17:25 Pulse Ox 100 02/15/19 17:25 Intake & Output 02/15/19 02/15/19 02/16/19 06:59 18:59 06:59 Intake Total 286.417 557.316 Balance 286.417 557.316 Weight 65 kg Intake: Intake, IV Titration 166.417 95.316 Amount Heparin Sod,Pork in 0.45% 166.417 95.316 NaCl 25,000 unit In 0.45 % NaCl 1 250ml.bag @ 18 UNITS/KG/HR 11.022 mls/hr IV .[id number] [facility] Rx#: [id number] Oral 120 462 Other: Voiding Method Bedpan Toilet # Voids 1 1 # Bowel Movements 1 1 - Exam 43-year-old woman, kadeem HEENT: Anicteric conjunctiva are pink and moist nasal mucosa grossly intact without significant lesions, there is no thrush. Poor dentition Neck: The neck is supple without significant lymphadenopathy or thyromegaly. Lungs: Symmetrical air entry with wheezing throughout the lung avalos Aufranc bronchial sounds Heart: Regular rate and rhythm with an audible audible S1 and S2 soft S4 no significant murmur is noted Abdomen: Positive bowel sounds soft and nontender without palpable masses or organomegaly. There was no guarding or rebound. Extremities: The upper extremities have excellent pulses they are symmetric, no significant petechiae or telangiectasia. No splinter hemorrhages were noted. The lower extremities are free from significant edema. The peripheral pulses were 2+ and symmetric. Neuro: Arousable poor historian. But able to move all extremities. - Labs CBC & Chem 7: 02/15/19 07:00 02/15/19 07:00 Labs: Abnormal Lab Results - Last 24 Hours (Table) 02/15/19 02/15/19 02/15/19 Range/Units 03:26 07:00 07:00 WBC 24.5 H (3.8-10.6) k/uL RBC 3.52 L (3.80-5.40) m/uL Hgb 10.1 L (11.4-16.0) gm/dL Hct 30.4 L (34.0-46.0) % Neutrophils # 22.1 H (1.3-7.7) k/uL APTT 41.7 H (22.0-30.0) sec Potassium 3.2 L (3.5-5.1) mmol/L BUN 19 H (7-17) mg/dL Creatinine 0.50 L (0.52-1.04) mg/dL Calcium 7.8 L (8.4-10.2) mg/dL Hep C IgG Ab (Non-Reactive) 02/15/19 02/15/19 02/15/19 Range/Units 07:00 07:00 16:55 WBC (3.8-10.6) k/uL RBC (3.80-5.40) m/uL Hgb (11.4-16.0) gm/dL Hct (34.0-46.0) % Neutrophils # (1.3-7.7) k/uL APTT 32.6 H 50.4 H (22.0-30.0) sec Potassium (3.5-5.1) mmol/L BUN (7-17) mg/dL Creatinine (0.52-1.04) mg/dL Calcium (8.4-10.2) mg/dL Hep C IgG Ab Reactive H (Non-Reactive) Microbiology - Last 24 Hours (Table) 02/13/19 21:17 Urine Culture - Final Urine,Voided Laboratory Results WBC 24.5 k/uL (3.8-10.6) H 02/15/19 07:00 RBC 3.52 m/uL (3.80-5.40) L 02/15/19 07:00 Hgb 10.1 gm/dL (11.4-16.0) L 02/15/19 07:00 Hct 30.4 % (34.0-46.0) L 02/15/19 07:00 MCV 86.4 fL (80.0-100.0) 02/15/19 07:00 MCH 28.6 pg (25.0-35.0) 02/15/19 07:00 MCHC 33.2 g/dL (31.0-37.0) 02/15/19 07:00 RDW 14.6 % (11.5-15.5) 02/15/19 07:00 Plt Count 203 k/uL (150-450) 02/15/19 07:00 Neutrophils % 90 % 02/15/19 07:00 Lymphocytes % 6 % 02/15/19 07:00 Monocytes % 2 % 02/15/19 07:00 Eosinophils % 0 % 02/15/19 07:00 Basophils % 0 % 02/15/19 07:00 Neutrophils # 22.1 k/uL (1.3-7.7) H 02/15/19 07:00 Lymphocytes # 1.5 k/uL (1.0-4.8) 02/15/19 07:00 Monocytes # 0.6 k/uL (0-1.0) 02/15/19 07:00 Eosinophils # 0.0 k/uL (0-0.7) 02/15/19 07:00 Basophils # 0.0 k/uL (0-0.2) 02/15/19 07:00 PT 13.7 sec (9.0-12.0) H 02/13/19 20:34 INR 1.3 (<1.2) H 02/13/19 20:34 APTT 50.4 sec (22.0-30.0) H 02/15/19 16:55 Sodium 139 mmol/L (137-145) 02/15/19 07:00 Potassium 3.2 mmol/L (3.5-5.1) L 02/15/19 07:00 Chloride 106 mmol/L (98-107) 02/15/19 07:00 Carbon Dioxide 28 mmol/L (22-30) 02/15/19 07:00 Anion Gap 5 mmol/L 02/15/19 07:00 BUN 19 mg/dL (7-17) H 02/15/19 07:00 Creatinine 0.50 mg/dL (0.52-1.04) L 02/15/19 07:00 Est GFR (CKD-EPI)AfAm >90 (>60 ml/min/1.73 sqM) 02/15/19 07:00 Est GFR (CKD-EPI)NonAf >90 (>60 ml/min/1.73 sqM) 02/15/19 07:00 Glucose 94 mg/dL (74-99) 02/15/19 07:00 Plasma Lactic Acid Sven 1.0 mmol/L (0.7-2.0) 02/13/19 20:34 Calcium 7.8 mg/dL (8.4-10.2) L 02/15/19 07:00 Magnesium 1.9 mg/dL (1.6-2.3) 02/15/19 07:00 Total Bilirubin 0.7 mg/dL (0.2-1.3) 02/13/19 20:34 AST 27 U/L (14-36) 02/13/19 20:34 ALT 15 U/L (9-52) 02/13/19 20:34 Alkaline Phosphatase 76 U/L (38-126) 02/13/19 20:34 Troponin I <0.012 ng/mL (0.000-0.034) 02/14/19 08:11 NT-Pro-B Natriuret Pep 1930 pg/mL 02/13/19 20:34 Total Protein 5.9 g/dL (6.3-8.2) L 02/13/19 20:34 Albumin 2.5 g/dL (3.5-5.0) L 02/13/19 20:34 Urine Color Yellow 02/13/19 21:17 Urine Appearance Cloudy (Clear) H 02/13/19 21:17 Urine pH 8.0 (5.0-8.0) 02/13/19 21:17 Ur Specific [place] 1.021 (1.001-1.035) 02/13/19 21:17 Urine Protein 2+ (Negative) H 02/13/19 21:17 Urine Glucose (UA) Negative (Negative) 02/13/19 21:17 Urine Ketones Negative (Negative) 02/13/19 21:17 Urine Blood Negative (Negative) 02/13/19 21:17 Urine Nitrite Negative (Negative) 02/13/19 21:17 Urine Bilirubin Negative (Negative) 02/13/19 21:17 Urine Urobilinogen >12.0 mg/dL (<2.0) 02/13/19 21:17 Ur Leukocyte Esterase Large (Negative) H 02/13/19 21:17 Urine RBC 8 /hpf (0-5) H 02/13/19 21:17 Urine WBC 47 /hpf (0-5) H 02/13/19 21:17 Ur Squamous Epith Cells 8 /hpf (0-4) H 02/13/19 21:17 Urine Bacteria Moderate /hpf (None) H 02/13/19 21:17 Hyaline Casts 1 /lpf (0-2) 02/13/19 21:17 Urine HCG, Qual Not Detected (Not Detectd) 02/13/19 21:17 Hepatitis A IgM Ab Non-Reactive (Non-Reactive) 02/15/19 07:00 Hep Bs Antigen Non-Reactive (Non-Reactive) 02/15/19 07:00 Hep B Core IgM Ab Non-Reactive (Non-Reactive) 02/15/19 07:00 Hep C IgG Ab Reactive (Non-Reactive) H 02/15/19 07:00 HIV-1 Antibody Non-Reactive (Non-Reactive) 02/15/19 07:00 HIV Ag/Ab Interpret 02/15/19 07:00 HIV p24 Antibody Non-Reactive (Non-Reactive) 02/15/19 07:00 HIV-2 Antibody Non-Reactive (Non-Reactive) 02/15/19 07:00 HIV P24 Antigen Non-Reactive (Non-Reactive) 02/15/19 07:00 Microbiology 02/13/19 21:17 Urine,Voided Urine Culture - Final 02/13/19 21:21 Blood Blood Culture Gram Stain - Preliminary 02/13/19 21:21 Blood Blood Culture - Preliminary Staphylococcus aureus 02/13/19 21:21 Blood Blood Culture - Final Assessment and Plan (1) Intravenous drug abuse Current Visit: Yes Status: Acute Code(s): F19.10 - OTHER PSYCHOACTIVE SUBSTANCE ABUSE, UNCOMPLICATED SNOMED Code(s): 946763431 (2) Endocarditis of tricuspid valve Narrative/Plan: 43-year-old female who has history of active injection drug use with heroin presents to Hospital of feeling poorly with fevers chills altered mental status. Echocardiogram has revealed evidence of the tricuspid valve endocarditis without valvular dysfunction or destruction. If this point in time antibiotic therapy is altered to Ancef and high dose of 2 g IV piggyback every 8 hours. This will be continued while she is in hospital. First challenge will be to determine course of antibiotic the time of her discharge. May require utilizing once weekly intravenous antibiotic therapy at the infusion clinic. Will not be a candidate for daily IV antibiotic therapy. Follow blood cultures requested HIV and hepatitis testing are requested Beta hCG was negative Smoking cessation is advised. Family is updated to her current status. 02/15/2019 patient remains agitated. However she is hemodynamically stable. Clonidine was added to try to help with her withdrawal symptoms. She is not hypotensive. Intravenous antibiotic therapy is with Ancef 2 g IV piggyback every 8 hours. His been discussed with the family she will not be a candidate for outpatient intravenous antibiotic therapy and will definitely have to have other plans at discharge. Cardiology is planned a NASREEN to further evaluate her tricuspid valve endocarditis. HIV is negative positive for hepatitis C which will need follow-up in the outpatient setting. Current Visit: Yes Status: Acute Code(s): I36.8 - OTHER NONRHEUMATIC TRICUSPID VALVE DISORDERS SNOMED Code(s): 73102039 (3) MSSA bacteremia Current Visit: Yes Status: Acute Code(s): R78.81 - BACTEREMIA SNOMED Code(s): 602995331 (4) Multifocal pneumonia Current Visit: Yes Status: Acute Code(s): J18.9 - PNEUMONIA, UNSPECIFIED ORGANISM SNOMED Code(s): 821597658
[2019-02-15] MEDS ORDERED: IBUPROFEN 600 MG TAB PO PRN (23:51)
[2019-02-16] MEDS: SIMETHICONE 80 MG CHEWABLE PO SCH ×3 (00:21→18:07)
[2019-02-16] MEDS: HYDROmorphone 1 MG/ML 1 ML SYRINGE IVP PRN ×4 (01:00→21:52)
[2019-02-16] MEDS: LORazepam 2 MG/ML INJ IV PRN ×5 (03:37→21:52)
[2019-02-16] MEDS: HEPARIN SOD,PORK IN 0.45% NACL 25,000 UNIT in 0.45% NACL 1 250ML.BAG IV SCH ×2 (06:29→18:08)
[2019-02-16] MEDS ORDERED: fentaNYL (PF) 50 MCG/ML 2 ML AMP ONE (08:08)
[2019-02-16 08:12] LABS: Basophils # (A) 0.1 k/uL (0-0.2); Basophils % (A) 1 %; Eosinophils # (A) 0.1 k/uL (0-0.7); Eosinophils % (A) 1 %; HCT 31.2 % (34.0-46.0); HGB 10.2 gm/dL (11.4-16.0); Lymphocytes # (A) 1.5 k/uL (1.0-4.8); Lymphocytes % (A) 12 %; MCH 28.3 pg (25.0-35.0); MCHC 32.8 g/dL (31.0-37.0); MCV 86.3 fL (80.0-100.0); Mean Platelet Volume 8.1; Monocytes # (A) 0.4 k/uL (0-1.0); Monocytes % (A) 3 %; Neutrophils # (A) 10.5 k/uL (1.3-7.7); Neutrophils % (A) 82 %; Platelet Count 280 k/uL (150-450); RBC 3.62 m/uL (3.80-5.40); RDW 14.8 % (11.5-15.5); WBC 12.8 k/uL (3.8-10.6)
[2019-02-16 08:30] LABS: African American GFR (CKD) >90 (>60 ml/min/1.73 sqM); Anion Gap 5 mmol/L; Blood Urea Nitrogen 11 mg/dL (7-17); Calcium 8.1 mg/dL (8.4-10.2); Carbon Dioxide 25 mmol/L (22-30); Chloride 109 mmol/L (98-107); Glucose 91 mg/dL (74-99); Potassium 3.3 mmol/L (3.5-5.1); Sodium 139 mmol/L (137-145)
[2019-02-16] MEDS ORDERED: BENZOCAINE SPRAY 1 CAN MUCOUS MEM ONE ×2 (08:36→08:40)
[2019-02-16] MEDS: BENZOCAINE SPRAY 1 CAN MUCOUS MEM ONE ×4 (08:38→08:48)
[2019-02-16] MEDS ORDERED: fentaNYL (PF) 50 MCG/ML 2 ML AMP IV ONE ×2 (08:38→08:42)
[2019-02-16] MEDS ORDERED: MIDAZOLAM (PF) 2 MG/2 ML VIAL IV ONE ×4 (08:38→08:42)
[2019-02-16] MEDS ORDERED: IV FLUID CONTINUATION 900 ML IV ONE (08:46)
--- NOTE | 2019-02-16 09:46 | ECHOT ---
TRANSESOPHAGEAL ECHOCARDIOGRAM DATE OF SERVICE: 02/16/2019 PERFORMING PHYSICIAN: Terell Rubin MD, [employer]. PROCEDURE PERFORMED: Transesophageal echocardiogram. INDICATION: Endocarditis. COMPLICATION: None. LEVEL OF SEDATION: Moderate with sedation length of 10 minutes. PROCEDURE DESCRIPTION: After obtaining an informed consent, explaining the procedure, benefits, risks, complications and alternatives, the patient was brought to the transesophageal echocardiogram suite. A pulse oximetry and heart rate monitors were attached to the patient prior to the procedure. The patient's throat was sprayed using lidocaine locally. Following that, the patient was turned into left lateral position. A bite guard was placed and the patient was then sedated with the above doses of Versed and fentanyl in divided doses. Following that, the transesophageal echocardiogram probe was advanced through the bite guard into the mid esophagus where 2-D echocardiogram images as well as color Doppler images of various cardiac structures were obtained. We evaluated the interatrial septum using 2-D echocardiogram, color Doppler, and contrast study. The procedure was completed. There were no complications. FINDINGS: The left ventricular dimension and systolic function appeared to be normal. The ejection fraction appeared to be in the range of 50% to 55%. The right ventricle appeared to be dilated. The left atrium and right atrium appeared to be dilated. The interatrial septum appeared to be intact. The left atrial appendage appeared to be free from any thrombus. The aortic valve is trileaflet valve without stenosis or regurgitation. The mitral valve seems to be normal without any evidence of endocarditis and with trace MR only. The tricuspid valve showed evidence of vegetation involving the anterior tricuspid valve leaflet and the vegetation was measured 1.5 cm. The vegetation is involving the upstream side of the valve and with a chaotic motion consistent with classical endocarditis. The pulmonic valve was not well visualized during the study. There was mild pericardial effusion identified. Also, there was severe tricuspid regurgitation seen. CONCLUSION: 1. Infective endocarditis involving the tricuspid valve with evidence of large vegetation measured 1.5 cm involving the anterior tricuspid valve leaflet. There is severe tricuspid regurgitation seen. 2. Normal trileaflet aortic valve without stenosis or regurgitation. 3. Normal mitral valve leaflets with mild MR only. 4. The pulmonic valve was not well visualized. 5. Dilated right ventricle with normal function. 6. Normal left ventricular dimension and systolic function. 7. Normal intact interatrial septum. 8. Normal left atrial appendage without any evidence of thrombus. 9. Small circumferential pericardial effusion seen. MMODL / IJN: [id number] /
[2019-02-16] MEDS: cloNIDine HCL 0.1 MG TAB PO SCH ×3 (10:57→21:53)
[2019-02-16] MEDS: PANTOPRAZOLE 40 MG/10 ML VIAL IV SCH (11:00)
[2019-02-16] MEDS: NICOTINE 21MG/24HR PATCH TRANSDERM SCH (11:06)
--- NOTE | 2019-02-16 12:32 | P.PN ---
Subjective Progress Note Date: 02/16/19 Principal diagnosis: Infective endocarditis with septic emboli The patient is seen today 02/16/2019 in follow-up on the selective care unit. She is currently awake and alert in no acute distress. She is still restless. Maintaining good O2 saturations in the 90s on room air. She's currently afebrile. Hemodynamically stable. Blood cultures positive for methicillin sensitive Staphylococcus aureus. White count 12.8. Hemoglobin 10.2. Creatinine 0.54. Potassium 3.3. HIV screen negative. Hepatitis A and B nonreactive. Hepatitis C reactive. NASREEN revealed evidence of infective endocarditis involving the tricuspid valve with evidence of large vegetation measuring 1.5 cm involving the anterior tricuspid valve leaflet. There is severe tricuspid regurgitation. She is currently on cefazolin. Remains on a heparin drip. Objective - Vital Signs Vital signs: Vital Signs Temp 98.1 F 02/16/19 09:20 Pulse 66 02/16/19 09:20 Resp 22 02/16/19 09:20 BP 126/74 02/16/19 09:20 Pulse Ox 98 02/16/19 09:20 Intake & Output 02/15/19 02/16/19 02/16/19 18:59 06:59 18:59 Intake Total 557.316 392.08 137.368 Output Total 1 Balance 557.316 391.08 137.368 Weight 68.4 kg Intake: IV 100 Intake, IV Titration 95.316 242.08 37.368 Amount Heparin Sod,Pork in 0.45% 95.316 242.08 37.368 NaCl 25,000 unit In 0.45 % NaCl 1 250ml.bag @ 18 UNITS/KG/HR 11.022 mls/hr IV .[id number] [facility] Rx#: [id number] Oral 462 150 Output: Urine 1 Other: Voiding Method Toilet Toilet # Voids 1 2 1 # Bowel Movements 1 - Exam GENERAL EXAM: Alert, restless, in no respiratory distress. On room air. HEAD: Normocephalic. EYES: Normal reaction of pupils, equal size. NOSE: Clear with pink turbinates. THROAT: No erythema or exudates. NECK: No masses, no JVD. CHEST: No chest wall deformity. LUNGS: Equal air entry with scattered crackles. CVS: S1 and S2 normal with an audible murmur, regular rhythm. ABDOMEN: No hepatosplenomegaly, normal bowel sounds, no guarding or rigidity. SPINE: No scoliosis or deformity SKIN: No rashes CENTRAL NERVOUS SYSTEM: No focal deficits, tone is normal in all 4 extremities. EXTREMITIES: There is no peripheral edema. No clubbing, no cyanosis. Peripheral pulses are intact. - Labs CBC & Chem 7: 02/16/19 07:55 02/16/19 07:55 Labs: Abnormal Lab Results - Last 24 Hours (Table) 02/15/19 02/15/19 02/16/19 Range/Units 07:00 16:55 07:55 WBC 12.8 H (3.8-10.6) k/uL RBC 3.62 L (3.80-5.40) m/uL Hgb 10.2 L (11.4-16.0) gm/dL Hct 31.2 L (34.0-46.0) % Neutrophils # 10.5 H (1.3-7.7) k/uL APTT 50.4 H (22.0-30.0) sec Potassium (3.5-5.1) mmol/L Chloride (98-107) mmol/L Calcium (8.4-10.2) mg/dL Hep C IgG Ab Reactive H (Non-Reactive) 02/16/19 02/16/19 Range/Units 07:55 07:55 WBC (3.8-10.6) k/uL RBC (3.80-5.40) m/uL Hgb (11.4-16.0) gm/dL Hct (34.0-46.0) % Neutrophils # (1.3-7.7) k/uL APTT 83.6 H (22.0-30.0) sec Potassium 3.3 L (3.5-5.1) mmol/L Chloride 109 H (98-107) mmol/L Calcium 8.1 L (8.4-10.2) mg/dL Hep C IgG Ab (Non-Reactive) Microbiology - Last 24 Hours (Table) 02/15/19 07:00 Blood Culture Gram Stain - Preliminary Blood Blood Culture - Preliminary Presumptive Staph aureus 02/13/19 21:21 Blood Culture Gram Stain - Final Blood Blood Culture - Final Staphylococcus aureus 02/15/19 07:00 Blood Culture - Final Blood Assessment and Plan Assessment: Pression: #1 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 There are also septic emboli in the bilateral lungs. NASREEN reveals inf ective endocarditis involving the tricuspid valve with evidence of large vegetation measuring 1.5 cm involving the anterior tricuspid valve leaflet. There is severe tricuspid regurgitation seen. #2 History of IV heroin use. #3 History of smoking crack cocaine. #4 History of hepatitis C. Her left #5 Chronic obstructive pulmonary disease, suspected. #6 Chronic and ongoing tobacco dependence. #7 Anemia of chronic disease. Plan: The patient was seen and evaluated by Dr. Dennis. NASREEN results as noted above. Cardiology is on the case. Remains on a heparin drip. She remains on Ancef per ID services. We'll continue to follow closely and make further recommendations based on her clinical status. I, the cosigning physician, performed a history & physical examination of the patient. Lungs sounds are clear. Maintaining good O2 saturations in the 90s on room air. I discussed the assessment and plan of care with my nurse practitioner, Nayeli Westfall. I attest to the above note as dictated by her.
[2019-02-16] MEDS: IPRATROPIUM-ALBUTEROL 3 ML NEB INHALATION PRN (13:18)
--- NOTE | 2019-02-16 15:50 | P.CONS ---
History of Present Illness - Reason for Consult Consult date: 02/16/19 Recommendations for anticoagulation Requesting physician: Deja Foley - Chief Complaint PE, IV Drug Abuse, Endocarditis - History of Present Illness I'm is a 43-year-old female patient who has recently been residing in a [facility] secondary to chronic polysubstance abuse including heroin. She is brought into the emergency department for further evaluation of fever and chills and mental status changes. During initial workup CTA of the chest was completed revealing pneumonia as well as pulmonary embolism. Infectious disease is following pulmonary is following she is status post NASREEN which did confirm endocarditis and is being treated with IV antibiotics. Because of the pulmonary embolism hematology has been consulted for further evaluation. Review of Systems A 14 point review of systems was assessed and completed and are all negative except for HPI - Poor historian Past Medical History Additional Past Medical History / Comment(s): back pain, hep c History of Any Multi-Drug Resistant Organisms: None Reported Past Surgical History: Section Past Psychological History: No Psychological Hx Reported Additional Psychological History / Comment(s): Single. Lives in a [facility] house. 2 children ages 20 and 17 live in [place] with her father. Patient's parents are present at the hospital. She has a strong support group but does not utilize it well. Active injection drug use, heroin. Positive tobacco use positive marijuana use. 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 No experience. No travel. No animal exposures Smoking Status: Current every day smoker Past Alcohol Use History: None Reported Past Drug Use History: Heroin, IV Drug Use Medications and Allergies Home Medications Medication Instructions Recorded Confirmed Type No Known Home Medications 02/13/19 02/13/19 History Allergies Allergy/AdvReac Type Severity Reaction Status Date / Time codeine Allergy Rash/Hives Verified 02/13/19 21:08 Physical Exam Vitals: Vital Signs Temp Pulse Pulse Resp BP BP Pulse Ox 02/16/19 13:26 76 02/16/19 13:20 68 02/16/19 09:20 98.1 F 66 22 126/74 98 02/16/19 08:54 66 18 132/70 98 02/16/19 08:48 80 18 143/96 96 02/16/19 08:45 76 18 143/98 96 02/16/19 08:41 80 18 135/87 97 02/16/19 08:00 98.4 F 69 16 126/77 97 02/16/19 05:37 98.3 F 52 L 16 104/64 98 02/16/19 04:00 98 F 76 16 119/85 98 02/16/19 01:00 98.6 F 77 119/72 02/16/19 00:00 99.6 F 73 16 110/65 98 02/15/19 22:00 78 111/72 02/15/19 20:00 98.6 F 82 16 108/68 98 02/15/19 17:25 98.0 F 87 16 122/73 100 Intake and Output 02/16/19 02/16/19 02/16/19 06:59 14:59 22:59 Intake Total 292.08 359.368 Balance 292.08 359.368 Intake: IV 100 Intake, IV Titration 242.08 37.368 Amount Heparin Sod,Pork in 0.45% 242.08 37.368 NaCl 25,000 unit In 0.45 % NaCl 1 250ml.bag @ 18 UNITS/KG/HR 11.022 mls/hr IV .[id number] [facility] Rx#: [id number] Oral 50 222 Other: Voiding Method Toilet # Voids 2 2 Weight 68.4 kg General: Alert and Oriented x3, No Acute Distress Head: Normocytic, Atraumatic Neck: Supple Mouth: No Lesions, No Thrush Eyes: Non-sclerotic No Palpable cervical, supraclavicular, axillary adenopathy Heart: Regular Rate, Regular Rhythm Lungs: Clear to Ausculations, No Wheeze, No Rhonchi, Diminishe bilateral lower lobes, No increased respiratory effort noted Abdomen: Soft, Non-Distended, Non-Tended, BSx4 Extremities: No Edema, Equal Strength Neurological: No Focal Defects: No sensory or motor deficits noted Psych: Calm and cooperative Results CBC & Chem 7: 02/16/19 07:55 02/16/19 07:55 Labs: Abnormal Lab Results - Last 24 Hours (Table) 02/15/19 02/16/19 02/16/19 Range/Units 16:55 07:55 07:55 WBC 12.8 H (3.8-10.6) k/uL RBC 3.62 L (3.80-5.40) m/uL Hgb 10.2 L (11.4-16.0) gm/dL Hct 31.2 L (34.0-46.0) % Neutrophils # 10.5 H (1.3-7.7) k/uL APTT 50.4 H (22.0-30.0) sec Potassium 3.3 L (3.5-5.1) mmol/L Chloride 109 H (98-107) mmol/L Calcium 8.1 L (8.4-10.2) mg/dL 02/16/19 Range/Units 07:55 WBC (3.8-10.6) k/uL RBC (3.80-5.40) m/uL Hgb (11.4-16.0) gm/dL Hct (34.0-46.0) % Neutrophils # (1.3-7.7) k/uL APTT 83.6 H (22.0-30.0) sec Potassium (3.5-5.1) mmol/L Chloride (98-107) mmol/L Calcium (8.4-10.2) mg/dL Microbiology - Last 24 Hours (Table) 02/15/19 07:00 Blood Culture Gram Stain - Preliminary Blood Blood Culture - Preliminary Presumptive Staph aureus 02/13/19 21:21 Blood Culture Gram Stain - Final Blood Blood Culture - Final Staphylococcus aureus 02/15/19 07:00 Blood Culture - Final Blood Assessment and Plan (1) Anemia Current Visit: Yes Status: Acute Code(s): D64.9 - ANEMIA, UNSPECIFIED SNOMED Code(s): 468347936 (2) Endocarditis of tricuspid valve Current Visit: Yes Status: Acute Code(s): I36.8 - OTHER NONRHEUMATIC TRICUSPID VALVE DISORDERS SNOMED Code(s): 66809102 (3) Multifocal pneumonia Current Visit: Yes Status: Acute Code(s): J18.9 - PNEUMONIA, UNSPECIFIED ORGANISM SNOMED Code(s): 474530540 (4) Pulmonary embolism Current Visit: Yes Status: Acute Code(s): I26.99 - OTHER PULMONARY EMBOLISM WITHOUT ACUTE COR PULMONALE SNOMED Code(s): 37706947 (5) Septic embolism Current Visit: Yes Status: Acute Code(s): I76 - SEPTIC ARTERIAL EMBOLISM SNOMED Code(s): 161173191 Plan: Assessment and recommendations: Acute Pulmonary Emobolism RLL Segmental Artery: - Currently on Heparin Drip - OK to switch to DOAC, will la require minimum 6 months of Anticoagulation - Check BLE doppler Pneumonia: Positive Blood Cultures - Less than 24 hours Presumptive Staph Aureus: - ID Following - Status Post NASREEN Positive Endocarditis Polysubstance Abuse: - Heroin Rec: - prefer DOAC for form of Anticoagulation as warfarin maybe affected by the need for longer term IV antibiotics which may increase risks of bleeding or further VTE. - Check BLE Dopplers - Ok to switch PO AC therapy when procedures are completed, may need to check insurance coverage or obtain assistance for DOAC. Haroon for allowing us participate in the care of this patient will follow along with you
--- NOTE | 2019-02-16 17:22 | US ---
EXAMINATION TYPE: US venous doppler duplex LE BI DATE OF EXAM: 02/16/2019 4:43 PM COMPARISON: CT angio chest CLINICAL HISTORY: pulm emboli; heart infection per patient SIDE PERFORMED: Bilateral TECHNIQUE: The lower extremity deep venous system is examined utilizing real time linear array sonog rell with graded compression, doppler sonography and color-flow sonography. VESSELS IMAGED: Common Femoral Vein Deep Femoral Vein Greater Saphenous Vein * Femoral Vein Popliteal Vein Small Saphenous Vein * Proximal Calf Veins (* superficial vessels) Right Leg: Negative for DVT Left Leg: Negative for DVT. Two left groin lymph nodes are noted with larger node = 2.5 x 1.0 x 0.6c m IMPRESSION: No evidence of deep venous thrombosis in the legs. Left inguinal lymph node with normal s onographic morphology.
--- NOTE | 2019-02-16 22:24 | P.PN ---
Subjective Progress Note Date: 02/16/19 43-year-old female who family relates is in a care home house at this time because of her heroin use. Is brought to the emergency center because of fevers chills and altered mental status. It is and the patient remains a poor historian and her family is able to relate that she's had great difficulties with her drug use. The mother relates that the current setting is supposed to discourage drug use, however it appears that she is actively still using heroin. At presentation because of her fever and chills workup was initiated which has included chest x-ray which shows evidence of multiple pneumonia. Computed tomography scan of the chest was performed because of pleuritic chest pain that verifies multifocal pneumonia as well as a pulmonary embolus. 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 With all these findings as well as the positive blood culture resulted in infectious diseases consultation. 02/15/2019 patient continues to have difficulties with her narcotic withdrawal is anxious and agitated. Clonidine was added hopefully with some mild improveme nt. Fever is showing some improvement. Work up is in progress with cardiology and a NASREEN has now been planned given her tricuspid valve endocarditis. 02/16/2019 NASREEN has been performed showing evidence of the extensive vegetation and the tricuspid valve regurgitation. The patient is mildly agitated but is quite sedated. No other acute difficulties are noted post procedure. Objective - Vital Signs Vital signs: Vital Signs Temp 99.3 F 02/16/19 16:00 Pulse 66 02/16/19 16:00 Resp 22 02/16/19 16:00 BP 145/88 02/16/19 16:00 Pulse Ox 98 02/16/19 16:00 Intake & Output 02/16/19 02/16/19 02/17/19 06:59 18:59 06:59 Intake Total 392.08 721.814 Output Total 1 Balance 391.08 721.814 Weight 68.4 kg Intake: IV 100 Intake, IV Titration 242.08 177.814 Amount Heparin Sod,Pork in 0.45% 242.08 177.814 NaCl 25,000 unit In 0.45 % NaCl 1 250ml.bag @ 18 UNITS/KG/HR 11.022 mls/hr IV .[id number] [facility] Rx#: [id number] Oral 150 444 Output: Urine 1 Other: Voiding Method Toilet # Voids 2 2 - Exam 43-year-old woman, kadeem HEENT: Anicteric conjunctiva are pink and moist nasal mucosa grossly intact without significant lesions, there is no thrush. Poor dentition Neck: The neck is supple without significant lymphadenopathy or thyromegaly. Lungs: Symmetrical air entry with wheezing throughout the lung avalos Aufranc bronchial sounds Heart: Regular rate and rhythm with an audible audible S1 and S2 soft S4 no significant murmur is noted Abdomen: Positive bowel sounds soft and nontender without palpable masses or organomegaly. There was no guarding or rebound. Extremities: The upper extremities have excellent pulses they are symmetric, no significant petechiae or telangiectasia. No splinter hemorrhages were noted. The lower extremities are free from significant edema. The peripheral pulses were 2+ and symmetric. Neuro: Arousable poor historian. But able to move all extremities. - Labs CBC & Chem 7: 02/16/19 07:55 02/16/19 07:55 Labs: Abnormal Lab Results - Last 24 Hours (Table) 02/16/19 02/16/19 02/16/19 Range/Units 07:55 07:55 07:55 WBC 12.8 H (3.8-10.6) k/uL RBC 3.62 L (3.80-5.40) m/uL Hgb 10.2 L (11.4-16.0) gm/dL Hct 31.2 L (34.0-46.0) % Neutrophils # 10.5 H (1.3-7.7) k/uL APTT 83.6 H (22.0-30.0) sec Potassium 3.3 L (3.5-5.1) mmol/L Chloride 109 H (98-107) mmol/L Calcium 8.1 L (8.4-10.2) mg/dL 02/16/19 Range/Units 15:02 WBC (3.8-10.6) k/uL RBC (3.80-5.40) m/uL Hgb (11.4-16.0) gm/dL Hct (34.0-46.0) % Neutrophils # (1.3-7.7) k/uL APTT 69.3 H (22.0-30.0) sec Potassium (3.5-5.1) mmol/L Chloride (98-107) mmol/L Calcium (8.4-10.2) mg/dL Microbiology - Last 24 Hours (Table) 02/15/19 07:00 Blood Culture Gram Stain - Preliminary Blood Blood Culture - Preliminary Presumptive Staph aureus 02/13/19 21:21 Blood Culture Gram Stain - Final Blood Blood Culture - Final Staphylococcus aureus 02/15/19 07:00 Blood Culture - Final Blood Laboratory Results WBC 12.8 k/uL (3.8-10.6) H 02/16/19 07:55 RBC 3.62 m/uL (3.80-5.40) L 02/16/19 07:55 Hgb 10.2 gm/dL (11.4-16.0) L 02/16/19 07:55 Hct 31.2 % (34.0-46.0) L 02/16/19 07:55 MCV 86.3 fL (80.0-100.0) 02/16/19 07:55 MCH 28.3 pg (25.0-35.0) 02/16/19 07:55 MCHC 32.8 g/dL (31.0-37.0) 02/16/19 07:55 RDW 14.8 % (11.5-15.5) 02/16/19 07:55 Plt Count 280 k/uL (150-450) 02/16/19 07:55 Neutrophils % 82 % 02/16/19 07:55 Lymphocytes % 12 % 02/16/19 07:55 Monocytes % 3 % 02/16/19 07:55 Eosinophils % 1 % 02/16/19 07:55 Basophils % 1 % 02/16/19 07:55 Neutrophils # 10.5 k/uL (1.3-7.7) H 02/16/19 07:55 Lymphocytes # 1.5 k/uL (1.0-4.8) 02/16/19 07:55 Monocytes # 0.4 k/uL (0-1.0) 02/16/19 07:55 Eosinophils # 0.1 k/uL (0-0.7) 02/16/19 07:55 Basophils # 0.1 k/uL (0-0.2) 02/16/19 07:55 PT 13.7 sec (9.0-12.0) H 02/13/19 20:34 INR 1.3 (<1.2) H 02/13/19 20:34 APTT 69.3 sec (22.0-30.0) H 02/16/19 15:02 Sodium 139 mmol/L (137-145) 02/16/19 07:55 Potassium 3.3 mmol/L (3.5-5.1) L 02/16/19 07:55 Chloride 109 mmol/L (98-107) H 02/16/19 07:55 Carbon Dioxide 25 mmol/L (22-30) 02/16/19 07:55 Anion Gap 5 mmol/L 02/16/19 07:55 BUN 11 mg/dL (7-17) 02/16/19 07:55 Creatinine 0.54 mg/dL (0.52-1.04) 02/16/19 07:55 Est GFR (CKD-EPI)AfAm >90 (>60 ml/min/1.73 sqM) 02/16/19 07:55 Est GFR (CKD-EPI)NonAf >90 (>60 ml/min/1.73 sqM) 02/16/19 07:55 Glucose 91 mg/dL (74-99) 02/16/19 07:55 Plasma Lactic Acid Sven 1.0 mmol/L (0.7-2.0) 02/13/19 20:34 Calcium 8.1 mg/dL (8.4-10.2) L 02/16/19 07:55 Magnesium 1.9 mg/dL (1.6-2.3) 02/15/19 07:00 Total Bilirubin 0.7 mg/dL (0.2-1.3) 02/13/19 20:34 AST 27 U/L (14-36) 02/13/19 20:34 ALT 15 U/L (9-52) 02/13/19 20:34 Alkaline Phosphatase 76 U/L (38-126) 02/13/19 20:34 Troponin I <0.012 ng/mL (0.000-0.034) 02/14/19 08:11 NT-Pro-B Natriuret Pep 1930 pg/mL 02/13/19 20:34 Total Protein 5.9 g/dL (6.3-8.2) L 02/13/19 20:34 Albumin 2.5 g/dL (3.5-5.0) L 02/13/19 20:34 Urine Color Yellow 02/13/19 21:17 Urine Appearance Cloudy (Clear) H 02/13/19 21:17 Urine pH 8.0 (5.0-8.0) 02/13/19 21:17 Ur Specific [place] 1.021 (1.001-1.035) 02/13/19 21:17 Urine Protein 2+ (Negative) H 02/13/19 21:17 Urine Glucose (UA) Negative (Negative) 02/13/19 21:17 Urine Ketones Negative (Negative) 02/13/19 21:17 Urine Blood Negative (Negative) 02/13/19 21:17 Urine Nitrite Negative (Negative) 02/13/19 21:17 Urine Bilirubin Negative (Negative) 02/13/19 21:17 Urine Urobilinogen >12.0 mg/dL (<2.0) 02/13/19 21:17 Ur Leukocyte Esterase Large (Negative) H 02/13/19 21:17 Urine RBC 8 /hpf (0-5) H 02/13/19 21:17 Urine WBC 47 /hpf (0-5) H 02/13/19 21:17 Ur Squamous Epith Cells 8 /hpf (0-4) H 02/13/19 21:17 Urine Bacteria Moderate /hpf (None) H 02/13/19 21:17 Hyaline Casts 1 /lpf (0-2) 02/13/19 21:17 Urine HCG, Qual Not Detected (Not Detectd) 02/13/19 21:17 Hepatitis A IgM Ab Non-Reactive (Non-Reactive) 02/15/19 07:00 Hep Bs Antigen Non-Reactive (Non-Reactive) 02/15/19 07:00 Hep B Core IgM Ab Non-Reactive (Non-Reactive) 02/15/19 07:00 Hep C IgG Ab Reactive (Non-Reactive) H 02/15/19 07:00 HIV-1 Antibody Non-Reactive (Non-Reactive) 02/15/19 07:00 HIV Ag/Ab Interpret 02/15/19 07:00 HIV p24 Antibody Non-Reactive (Non-Reactive) 02/15/19 07:00 HIV-2 Antibody Non-Reactive (Non-Reactive) 02/15/19 07:00 HIV P24 Antigen Non-Reactive (Non-Reactive) 02/15/19 07:00 Microbiology 02/15/19 07:00 Blood Blood Culture Gram Stain - Preliminary 02/15/19 07:00 Blood Blood Culture - Preliminary Presumptive Staph aureus 02/13/19 21:21 Blood Blood Culture Gram Stain - Final 02/13/19 21:21 Blood Blood Culture - Final Staphylococcus aureus 02/15/19 07:00 Blood Blood Culture - Final 02/13/19 21:17 Urine,Voided Urine Culture - Final 02/13/19 21:21 Blood Blood Culture - Final Assessment and Plan (1) Intravenous drug abuse Current Visit: Yes Status: Acute Code(s): F19.10 - OTHER PSYCHOACTIVE SUBSTANCE ABUSE, UNCOMPLICATED SNOMED Code(s): 001388971 (2) Endocarditis of tricuspid valve Narrative/Plan: 43-year-old female who has history of active injection drug use with heroin presents to Hospital of feeling poorly with fevers chills altered mental status. Echocardiogram has revealed evidence of the tricuspid valve endocarditis without valvular dysfunction or destruction. If this point in time antibiotic therapy is altered to Ancef and high dose of 2 g IV piggyback every 8 hours. This will be continued while she is in hospital. First challenge will be to determine course of antibiotic the time of her discharge. May require utilizing once weekly intravenous antibiotic therapy at the infusion clinic. Will not be a candidate for daily IV antibiotic therapy. Follow blood cultures requested HIV and hepatitis testing are requested Beta hCG was negative Smoking cessation is advised. Family is updated to her current status. 02/15/2019 patient remains agitated. However she is hemodynamically stable. Clonidine was added to try to help with her withdrawal symptoms. She is not hypotensive. Intravenous antibiotic therapy is with Ancef 2 g IV piggyback every 8 hours. His been discussed with the family she will not be a candidate for outpatient intravenous antibiotic therapy and will definitely have to have other plans at discharge. Cardiology is planned a NASREEN to further evaluate her tricuspid valve endocarditis. HIV is negative positive for hepatitis C which will need follow-up in the outpatient setting. 02/16/2019 the patient has undergone NASREEN and evidence of the extensive vegetation on the tricuspid valve is noted with significant tricuspid regurgitation. Blood cultures remain positive which we still with MSSA. HIV is negative hepatitis C positive which will have follow-up in the outpatient setting Cardiology is following status post the NASREEN and await their plans as far as any need for surgical evaluation given the large vegetation was seen. Follow-up blood cultures requested Current Visit: Yes Status: Acute Code(s): I36.8 - OTHER NONRHEUMATIC TRICUSPID VALVE DISORDERS SNOMED Code(s): 06922686 (3) MSSA bacteremia Current Visit: Yes Status: Acute Code(s): R78.81 - BACTEREMIA SNOMED Code(s): 275790995 (4) Multifocal pneumonia Current Visit: Yes Status: Acute Code(s): J18.9 - PNEUMONIA, UNSPECIFIED ORGANISM SNOMED Code(s): 977377260
[2019-02-17] MEDS: HYDROmorphone 1 MG/ML 1 ML SYRINGE IVP PRN ×7 (00:05→23:53)
--- NOTE | 2019-02-17 01:44 | P.PN ---
Subjective Progress Note Date: 02/16/19 Principal diagnosis: This is a 43-year-old female with a past medical history of multiple medical problems who was admitted with an elevated white blood count hyponatremia and hypokalemia. A CTA was done showing a small pulmonary embolism in the right lower segmental artery and multiple scattered foci of consolidation airspace disease bilaterally with small cavitary appearance indicating possible septic emboli as being closely monitored. Pulmonary and cardiology are following. Patient is lying in bed in mild acute distress stating she is having side pain with father at the bedside. Patient is asking for more Dilaudid stating that the pain is severe. Patient denies any shortness of breath or chest pain at this time. Patient is twisting back and forth in bed stating that the site pain is severe. Patient denies any nausea or vomiting at this time. Patient is afebrile. Patient does have a history of polysubstance abuse and is having active withdrawals. Patient is to undergo a NASREEN in the morning. Patient is currently still on IV heparin drip. Guarded prognosis REVIEW OF SYSTEMS: ENT: No diminished vision or hearing. CARDIOVASCULAR: Mentioned earlier. RESPIRATORY: As mentioned earlier. GI: No nauscea, vomiting or diarrhea. : No dysuria or retention. NERVOUS SYSTEM: No numbness or weakness. ALLERGY/IMMUNOLOGY: No asthma or hay fever. MUSCULOSKELETAL: As mentioned earlier. HEMATOLOGY/ONCOLOGY: No history of anemia. ENDOCRINE: No history of diabetes or hypothyroidism. CONSTITUTIONAL: As mentioned earlier. DERMATOLOGY: Negative. PSYCHIATRY: Mentioned earlier. RHEUMATOLOGY: Negative. Active Medications Albuterol/Ipratropium (Duoneb 0.5 Mg-3 Mg/3 Ml Soln) 3 ml INHALATION RT-Q4H PRN PRN Reason: shortness of breath Clonidine (Catapres) 0.1 mg PO TID [facility] Last Admin: 02/15/19 15:34 Dose: 0.1 mg Documented by: Heparin Sodium (Porcine) (Heparin) 0 unit IV PER PROTOCOL PRN; Protocol PRN Reason: Low PTT Hydromorphone HCl (Dilaudid) 1 mg IVP Q4H PRN PRN Reason: Pain Last Admin: 02/15/19 13:08 Dose: 1 mg Documented by: Heparin Sodium/Sodium Chloride (25,000 unit/ Sodium Chloride) 250 mls @ 11.022 mls/hr IV .[id number] [facility]; Protocol Last Admin: 02/15/19 15:35 Dose: 26.53 units/kg/hr, 16.247 mls/hr Documented by: Cefazolin Sodium 2 gm/ Sodium (Chloride) 50 mls @ 100 mls/hr IVPB Q8H [facility] Last Admin: 02/15/19 13:06 Dose: 100 mls/hr Documented by: Lorazepam (Ativan) 0.5 mg IV Q4HR PRN PRN Reason: Anxiety Last Admin: 02/15/19 15:22 Dose: 0.5 mg Documented by: Miscellaneous Information (Magnesium Per Protocol) 1 each MISCELLANE DAILY PRN; Protocol PRN Reason: Per Protocol Miscellaneous Information (Potassium Per Protocol) 1 each MISCELLANE DAILY PRN; Protocol PRN Reason: Per Protocol Nicotine (Habitrol 21mg/24hr Patch) 1 patch TRANSDERM DAILY [facility] Last Admin: 02/15/19 09:22 Dose: 1 patch Documented by: Ondansetron HCl (Zofran) 8 mg IVP Q8H PRN PRN Reason: Nausea Pantoprazole Sodium (Protonix) 40 mg IV DAILY [facility] Last Admin: 02/15/19 09:26 Dose: 40 mg Documented by: 02/16/2019 Patient underwent a NASREEN this morning showing extensive vegetation and tricuspid valve regurgitation. Patient is currently on IV antibiotic therapy for e ndocarditis and may require outpatient antibiotic therapy. Infectious disease is following closely and coordinating care for IV therapy once discharged for weekly therapy at the clinic due to polysubstance and IV drug use history and risk of using the midline or PICC for IV access of illicit drug use. Parents are at the bedside and are aware of the treatment plan and agree to close monitoring. Hematology/Oncology was consulted for continued anticoagulation therapy recommendations. Patient is currently still on IV heparin and may be switched to oral once procedures are done and insurance coverage is verified. Patient denies any shortness of breath, chest pain, or palpitations. Patient is afebrile. Patient is still having a lot of generalized pain and requesting an increase in pain medication. Patient's withdrawal symptoms have lessened but are still present. Patient is up and walking to the bathroom with no difficulty. Objective - Vital Signs Vital signs: Vital Signs Temp 98.7 F 02/17/19 00:48 Pulse 62 02/17/19 00:48 Resp 18 02/17/19 00:48 BP 122/72 02/17/19 00:48 Pulse Ox 98 02/16/19 16:00 Intake & Output 02/16/19 02/16/19 02/17/19 06:59 18:59 06:59 Intake Total 392.08 721.814 Output Total 1 Balance 391.08 721.814 Weight 68.4 kg Intake: IV 100 Intake, IV Titration 242.08 177.814 Amount Heparin Sod,Pork in 0.45% 242.08 177.814 NaCl 25,000 unit In 0.45 % NaCl 1 250ml.bag @ 18 UNITS/KG/HR 11.022 mls/hr IV .[id number] [facility] Rx#: [id number] Oral 150 444 Output: Urine 1 Other: Voiding Method Toilet Toilet # Voids 2 2 - Exam Gen: This is a 43-year-old female sitting up in bed in no acute distress. Vital signs are stable. Temp is 98.1, pulse is 64, respirations 16, blood pressure 126/78, oxygen saturation is 98% on room air. HEENT: Head is atraumatic, normocephalic. Pupils equal, round. Sclerae is anicteric. NECK: Supple. No JVD. No lymphadenopathy. No thyromegaly. LUNGS: Diminished in the bases with a few scattered rhonchi and crackles noted. No intercostal retractions. HEART: S1 and S2 are muffled with an ejection systolic murmur. ABDOMEN: Soft. Bowel sounds are present. No masses. No tenderness. EXTREMITIES: No pedal edema. No calf tenderness. NEUROLOGICAL: Patient is awake, alert and oriented x3. Cranial nerves 2 through 12 are grossly intact. - Labs CBC & Chem 7: 02/16/19 07:55 02/16/19 07:55 Labs: Abnormal Lab Results - Last 24 Hours (Table) 02/16/19 02/16/19 02/16/19 Range/Units 07:55 07:55 07:55 WBC 12.8 H (3.8-10.6) k/uL RBC 3.62 L (3.80-5.40) m/uL Hgb 10.2 L (11.4-16.0) gm/dL Hct 31.2 L (34.0-46.0) % Neutrophils # 10.5 H (1.3-7.7) k/uL APTT 83.6 H (22.0-30.0) sec Potassium 3.3 L (3.5-5.1) mmol/L Chloride 109 H (98-107) mmol/L Calcium 8.1 L (8.4-10.2) mg/dL 02/16/19 Range/Units 15:02 WBC (3.8-10.6) k/uL RBC (3.80-5.40) m/uL Hgb (11.4-16.0) gm/dL Hct (34.0-46.0) % Neutrophils # (1.3-7.7) k/uL APTT 69.3 H (22.0-30.0) sec Potassium (3.5-5.1) mmol/L Chloride (98-107) mmol/L Calcium (8.4-10.2) mg/dL Microbiology - Last 24 Hours (Table) 02/15/19 07:00 Blood Culture Gram Stain - Preliminary Blood Blood Culture - Preliminary Presumptive Staph aureus 02/13/19 21:21 Blood Culture Gram Stain - Final Blood Blood Culture - Final Staphylococcus aureus 02/15/19 07:00 Blood Culture - Final Blood Assessment and Plan Assessment: Possible lateral pneumonia, possibly septic emboli secondary to infective endocarditis present on admission with possible sepsis present on admission History of IV drug abuse Hyponatremia Hypokalemia Anemia of chronic disease Possible urinary tract infection History of back pain History of hepatitis C History of nicotine dependence Polysubstance abuse Recommendations and discussion This is a 43-year-old woman who has multiple complex medical issues and will be monitored closely. Recommend continue current medications, management, and s ymptomatic treatment. The patient is on broad-spectrum IV antibiotics and will continue per infectious disease recommendations. Cardiology is following the patient closely. NASREEN showed large vegetation measuring 1.5 centimeters involving the anterior tricuspid valve leaflet with infective endocarditis involving the tricuspid valve. Severe tricuspid regurgitation seen as well. Guarded prognosis due to the multiple complex medical issues. Patient is currently still on heparin IV for anticoagulation and will be switched to oral anticoagulation per hematology recommendations and continue 6 months post hospitalization. Prognosis is extremely guarded. Further recommendations to follow.
[2019-02-17] MEDS: LORazepam 2 MG/ML INJ IV PRN ×6 (02:25→22:17)
[2019-02-17 06:27] LABS: Basophils # (A) 0.1 k/uL (0-0.2); Basophils % (A) 1 %; Eosinophils # (A) 0.1 k/uL (0-0.7); Eosinophils % (A) 1 %; HCT 29.9 % (34.0-46.0); HGB 9.6 gm/dL (11.4-16.0); Lymphocytes # (A) 2.2 k/uL (1.0-4.8); Lymphocytes % (A) 16 %; MCH 28.2 pg (25.0-35.0); MCHC 32.2 g/dL (31.0-37.0); MCV 87.6 fL (80.0-100.0); Mean Platelet Volume 8.4; Monocytes # (A) 0.4 k/uL (0-1.0); Monocytes % (A) 3 %; Neutrophils # (A) 10.5 k/uL (1.3-7.7); Neutrophils % (A) 77 %; Platelet Count 305 k/uL (150-450); RBC 3.42 m/uL (3.80-5.40); RDW 15.4 % (11.5-15.5); WBC 13.8 k/uL (3.8-10.6)
[2019-02-17 06:35] LABS: African American GFR (CKD) >90 (>60 ml/min/1.73 sqM); Anion Gap 6 mmol/L; Blood Urea Nitrogen 6 mg/dL (7-17); Calcium 7.7 mg/dL (8.4-10.2); Carbon Dioxide 25 mmol/L (22-30); Chloride 106 mmol/L (98-107); Glucose 85 mg/dL (74-99); Potassium 3.3 mmol/L (3.5-5.1); Sodium 137 mmol/L (137-145)
[2019-02-17] MEDS ORDERED: POTASSIUM CHLORIDE ER 20 MEQ TAB.ER PO STA (06:44)
[2019-02-17] MEDS: IPRATROPIUM-ALBUTEROL 3 ML NEB INHALATION PRN (08:00)
[2019-02-17] MEDS: cloNIDine HCL 0.1 MG TAB PO SCH ×4 (08:07→20:12)
[2019-02-17] MEDS: SIMETHICONE 80 MG CHEWABLE PO SCH ×2 (08:07→20:12)
[2019-02-17] MEDS: NICOTINE 21MG/24HR PATCH TRANSDERM SCH (08:08)
[2019-02-17] MEDS: PANTOPRAZOLE 40 MG/10 ML VIAL IV SCH (08:08)
--- NOTE | 2019-02-17 11:11 | PN ---
PROGRESS NOTE This is a patient who we initially saw in consultation a couple days ago. It was very clear to us that she had infective endocarditis with septic emboli to the lungs. She has a large vegetation on the tricuspid valve which is about 1.5 cm. It is on the anterior leaflet of the tricuspid valve. Cardiology and Infectious Disease are going to try to sterilize her blood and infection by antibiotics rather than surgery at this point. Hopefully, it will clear up. She does have a history of IV heroin use as well as smoking crack cocaine. She has a history of hepatitis C, suspected COPD, chronic and ongoing tobacco dependence, and anemia of chronic disease. The NASEREN was done recently by Cardiology. The patient is having some chest pain which is pleuritic in nature. I believe it relates to septic emboli which are on the pleural surface. She denies any fever recently. PHYSICAL EXAMINATION: VITAL SIGNS: Current vital signs are reviewed. Temperature 97.8. Heart rate 59, respiratory rate 18, blood pressure 122/72, mean 88. Room-air saturation 97%. GENERAL: Appears in no acute distress. HEENT examination is grossly unremarkable. Mucous membranes are moist. NECK: Supple. Full range of motion. No adenopathy or thyromegaly. Neck veins are flat. CARDIOVASCULAR examination reveals regular rhythm rate. S1, S2 normal. No distinct murmur noted. LUNGS: Reveal mostly clear breath sounds. No wheezes or rhonchi. No crackles. ABDOMEN: Soft. Bowel sounds are heard. EXTREMITIES are intact. No cyanosis, clubbing, or edema. SKIN: Without rash. NEUROLOGIC examination is nonfocal. LAB DATA: Reviewed. White count 13.8, hemoglobin 9.6, hematocrit 29.9, platelet count 305,000, PTT 76.9. Sodium 137, potassium 3.3, chloride 106, CO2 25, BUN and creatinine were 6 and 0.53. Blood cultures were positive for Staph aureus. This is a presumptive ID. The Staph is sensitive to everything. Current medications are reviewed. She is currently on Ancef as an antibiotic. The rest of her medications are appropriate including updrafts. ASSESSMENT: 1. 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 2. 1.5 cm vegetation on the anterior tricuspid valve leaflet. 3. History of IV heroin use. 4. History of smoking crack cocaine. 5. History of hepatitis C. 6. Chronic obstructive pulmonary disease. 7. Chronic and ongoing tobacco dependence. 8. Anemia of chronic disease. PLAN: The patient is currently on Ancef. We will continue to follow. Additional recommendations and suggestions are forthcoming. Respiratory status is stable. She does have some pain in the anterior chest area, likely related to septic emboli which are against the visceral pleura. No additional recommendations are made. She should get pain medications in hospital service. MMODL / IJN: [id number] /
--- NOTE | 2019-02-17 12:29 | P.PN ---
Subjective Progress Note Date: 02/17/19 This is a 43-year-old patient with no prior documented history of hypertension, nondiabetic, no hyperlipidemia, she does smoke cigarettes, and uses heroin IV. She states that she's been a heroin user for the past 2 years, prior to that she was a user of prescription drugs. She presents to the hospital on this occasion with symptoms of chest pain which she describes as a pressure sensation with associated sharp pains. Patient has also been running fevers. A CTA of the chest was performed on arrival here which revealed small pulmonary embolus in the right lower lobe segmental artery, multiple scattered foci of consolidation bilaterally throughout the lungs a broad differential diagnosis includes neoplastic process, it fevers septic emboli. Small and mildly enlarged right nodes. Hepatomegaly. Mildly dilated common bile duct. Splenomegaly. Chest x-ray shows multifocal pneumonia. EKG shows a sinus tachycardia with no acute changes. Blood pressure 96/68 with a heart rate in th e 60s, 100% on room air. White blood cell count 17.5, hemoglobin 10.3, platelet count 212. Sodium 125, potassium 3.0, BUN 15 and creatinine 0.7. Troponins are negative 3. BNP level 1930. Patient did have a temperature of 101.5 on arrival here. The cultures positive for gram-positive cocci in clusters. A consultation has been requested with infectious disease. Echocardiogram with Doppler study has been performed, results are yet pending. 02/15/2019 Patient's echocardiogram with Doppler study revealed a normal left ventricular systolic function, there is moderate tricuspid regurgitation with moderate sized mobile vegetation attached to the anterior tricuspid valve leaflet. Patient is definitely going through withdrawal today. Blood pressure 120/60 with a heart rate in the 70s, 98% on 2 L of oxygen. Parents are at bedside, patient has been advised that she'll need to undergo a transesophageal echocardiographic study tomorrow. The risks and the benefits were explained to the patient and her parents in detail, this will be performed tomorrow by Dr. Hatch. 02/17/2019 Patient did undergo a NASREEN yesterday by Dr. Rubin which revealed infective endocarditis involving the tricuspid valve with evidence of large vegetation measuring 1.5 cm involving the anterior tricuspid valve leaflet. There is severe tricuspid regurgitation. Small circumferential pericardial effusion is seen. The decision at this point in time is to stabilize the patient with antibiotics rather than surgery. Patient is complaining of some intermittent chest pain, pleuritic in nature. Likely secondary to the septic emboli. Blood pressure 122/70 with a heart rate of 60, 97% on room air. Objective - Vital Signs Vital signs: Vital Signs Temp 97.8 F 02/17/19 08:00 Pulse 59 L 02/17/19 08:00 Resp 18 02/17/19 08:00 BP 122/72 02/17/19 08:00 Pulse Ox 97 02/17/19 08:00 Intake & Output 02/16/19 02/17/19 02/17/19 18:59 06:59 18:59 Intake Total 721.814 Balance 721.814 Weight 68 kg Intake: IV 100 Intake, IV Titration 177.814 Amount Heparin Sod,Pork in 0.45% 177.814 NaCl 25,000 unit In 0.45 % NaCl 1 250ml.bag @ 18 UNITS/KG/HR 11.022 mls/hr IV .[id number] [facility] Rx#: [id number] Oral 444 Other: Voiding Method Toilet Toilet # Voids 2 1 - Exam PHYSICAL EXAMINATION: GENERAL: 43-year-old female anxious and fidgety today HEENT: Head is atraumatic, normocephalic. Pupils equal, round. Sclera anicteric. Conjunctiva are clear. Mucous membranes of the mouth are moist. Neck is supple. There is no elevated jugular venous pressure. No carotid bruit is heard. HEART EXAMINATION: Heart S1 S2 1 systolic murmur is heard. CHEST EXAMINATION: Lungs reveal scattered rhonchi and wheezing throughout. Positive chest wall pain with deep breathing ABDOMEN: Soft, nontender. Bowel sounds are heard. No organomegaly noted. EXTREMITIES: 2+ peripheral pulses with no evidence of peripheral edema and no calf tenderness noted. NEUROLOGIC patient is awake, alert and oriented 3 . - Labs CBC & Chem 7: 02/17/19 06:04 02/17/19 06:04 Labs: Abnormal Lab Results - Last 24 Hours (Table) 02/16/19 02/17/19 02/17/19 Range/Units 15:02 06:04 06:04 WBC 13.8 H (3.8-10.6) k/uL RBC 3.42 L (3.80-5.40) m/uL Hgb 9.6 L (11.4-16.0) gm/dL Hct 29.9 L (34.0-46.0) % Neutrophils # 10.5 H (1.3-7.7) k/uL ESR (0-20) mm/hr APTT 69.3 H (22.0-30.0) sec Potassium 3.3 L (3.5-5.1) mmol/L BUN 6 L (7-17) mg/dL Calcium 7.7 L (8.4-10.2) mg/dL 02/17/19 02/17/19 Range/Units 06:04 06:55 WBC (3.8-10.6) k/uL RBC (3.80-5.40) m/uL Hgb (11.4-16.0) gm/dL Hct (34.0-46.0) % Neutrophils # (1.3-7.7) k/uL ESR 66 H (0-20) mm/hr APTT 76.9 H (22.0-30.0) sec Potassium (3.5-5.1) mmol/L BUN (7-17) mg/dL Calcium (8.4-10.2) mg/dL Microbiology - Last 24 Hours (Table) 02/13/19 21:21 Blood Culture Gram Stain - Final Blood Blood Culture - Final Staphylococcus aureus 02/15/19 07:00 Blood Culture Gram Stain - Preliminary Blood Blood Culture - Preliminary Presumptive Staph aureus Assessment and Plan Plan: Assessment and plan #1 atypical chest pain, not suggestive of acute coronary syndrome. Troponins negative 3. EKG shows a sinus tachycardia with no acute changes. #2 sepsis, temperature 101.5 on arrival, elevated white blood cell count, evidence of multifocal pneumonia on chest x-ray and CAT scan, evidence on CAT scan also of a pulmonary embolism and ossicle septic emboli, positive blood cultures #3 IV heroin drug use, current, over the past 3 years she states she uses up to 3 times daily #4 nicotine dependence #5 tricuspid valve endocarditis Plan From cardiology's perspective, we'll recommend to continue this patient on current antibiotics, no surgery recommended at this point in time. DNP note has been reviewed, I agree with a documented findings and plan of care. Patient was seen and examined.
--- NOTE | 2019-02-17 18:52 | XR ---
EXAMINATION TYPE: XR chest 1V portable DATE OF EXAM: 02/17/2019 COMPARISON: 02/13/2019 HISTORY: Short of breath TECHNIQUE: Single frontal view of the chest is obtained. FINDINGS: There is blunting of costophrenic angles more on the right side. There are chest leads. Th ere is pulmonary vascular congestion. There are chest leads. IMPRESSION: Mild Congestive heart failure with pleural fluid that is worse than last exam. Increased pleural fluid on the right side.
--- NOTE | 2019-02-17 22:47 | PN ---
PROGRESS NOTE DATE OF SERVICE: 02/17/2019 This 44-year-old woman who was admitted with fever and possible bilateral pneumonia also had a NASREEN done by Cardiology. NASREEN showed evidence of vegetation of the tricuspid valve about 1.5 cm and severe tricuspid regurgitation was also noted. The multiple consultants are following the patient closely. A venous Doppler was done which showed no evidence of any DVT. No chest pain. No palpitations. PAST MEDICAL HISTORY: Reviewed. REVIEW OF SYSTEMS: Cardiovascular system: No angina or palpitations. Otherwise, as mentioned earlier. RESPIRATION: No cough. GI no nausea or vomiting. no dysuria. CENTRAL NERVOUS SYSTEM: No numbness or weakness. CURRENT MEDICATIONS: Reviewed and include: 1. DuoNeb q.i.d. and p.r.n. 2. Cefazolin 2 g IV q.8h. 3. Catapres 0.1 t.i.d. 4. Heparin. 5. Dilaudid 1 mg q.4 p.r.n. 6. Motrin p.r.n. 7. Replacement protocols. 8. Zofran. 9. Protonix. 10.Mylicon. PHYSICAL EXAM: Patient is alert, oriented x3. Pulse 95. Blood pressure 94/56, respiration 18, temperature 97.9, pulse ox 97 percent on room air. HEENT: Conjunctivae normal. NECK: No jugular venous distention. CARDIOVASCULAR: S1, S2 muffled. Ejection systolic murmur. RESPIRATORY: Breath sounds diminished in the bases. Bilateral scattered rhonchi and crackles. ABDOMEN: Soft, nontender. LEGS are no edema. CENTRAL NERVOUS SYSTEM: No focal deficits. LABS: WBC 13.2, hemoglobin 9.6, sodium 130, potassium 3.3. ASSESSMENT: 1. Infective endocarditis of the tricuspid valve subacute with possible sepsis present on admission with MSSA. 2. Bilateral pneumonia possibly septic emboli. 3. History of IV drug abuse. 4. Hyponatremia. 5. Hypokalemia. 6. Anemia of chronic disease. 7. Possible urinary tract infection. 8. History of chronic back pain. 9. History hepatitis C. 10.History of nicotine dependence. 11.History of polysubstance abuse. RECOMMENDATIONS AND DISCUSSION: In this 43-year-old woman who presented with multiple complex medical issues, we will monitor the patient closely, continue the current medications, management and symptomatic treatment. Continue with IV antibiotics. The cultures are showing Staph aureus showing MSSA. Continue the antibiotics. Closely monitor with multiple consultants and prognosis guarded because of multiple complex medical issues and further recommendations to follow. MMODL / IJN: [id number] /
--- NOTE | 2019-02-17 23:17 | P.PN ---
Subjective Progress Note Date: 02/17/19 43-year-old female who family relates is in a penitentiary house at this time because of her heroin use. Is brought to the emergency center because of fevers chills and altered mental status. It is and the patient remains a poor historian and her family is able to relate that she's had great difficulties with her drug use. The mother relates that the current setting is supposed to discourage drug use, however it appears that she is actively still using heroin. At presentation because of her fever and chills workup was initiated which has included chest x-ray which shows evidence of multiple pneumonia. Computed tomography scan of the chest was performed because of pleuritic chest pain that verifies multifocal pneumonia as well as a pulmonary embolus. 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 With all these findings as well as the positive blood culture resulted in infectious diseases consultation. 02/15/2019 patient continues to have difficulties with her narcotic withdrawal is anxious and agitated. Clonidine was added hopefully with some mild improveme nt. Fever is showing some improvement. Work up is in progress with cardiology and a NASREEN has now been planned given her tricuspid valve endocarditis. 02/16/2019 NASREEN has been performed showing evidence of the extensive vegetation and the tricuspid valve regurgitation. The patient is mildly agitated but is quite sedated. No other acute difficulties are noted post procedure. 02/17/2019 patient is stable. Continues to complain of severe pain to her left chest. Receiving several pain medications but she remains discontent. We discussed her high opioid tolerance. Her shortness of breath is improved. She is updated on the outcome of her NASREEN, no plans for surgical intervention. Once her bacteremia clears will be able to determine the outpatient course. Objective - Vital Signs Vital signs: Vital Signs Temp 99.2 F 02/17/19 20:00 Pulse 76 02/17/19 20:00 Resp 18 02/17/19 20:00 BP 118/76 02/17/19 20:00 Pulse Ox 98 02/17/19 20:24 Intake & Output 02/17/19 02/17/19 02/18/19 06:59 18:59 06:59 Intake Total 222 240 Balance 222 240 Weight 68 kg Intake: Oral 222 240 Other: Voiding Method Toilet Toilet # Voids 1 2 1 - Exam 43-year-old woman, kadeem HEENT: Anicteric conjunctiva are pink and moist nasal mucosa grossly intact wit hout significant lesions, there is no thrush. Poor dentition Neck: The neck is supple without significant lymphadenopathy or thyromegaly. Lungs: Symmetrical air entry with wheezing throughout the lung avalos Aufranc bronchial sounds Heart: Regular rate and rhythm with an audible audible S1 and S2 soft S4 no significant murmur is noted Abdomen: Positive bowel sounds soft and nontender without palpable masses or organomegaly. There was no guarding or rebound. Extremities: The upper extremities have excellent pulses they are symmetric, no significant petechiae or telangiectasia. No splinter hemorrhages were noted. The lower extremities are free from significant edema. The peripheral pulses were 2+ and symmetric. Neuro: Arousable poor historian. But able to move all extremities. - Labs CBC & Chem 7: 02/17/19 06:04 02/17/19 06:04 Labs: Abnormal Lab Results - Last 24 Hours (Table) 02/17/19 02/17/19 02/17/19 Range/Units 06:04 06:04 06:04 WBC 13.8 H (3.8-10.6) k/uL RBC 3.42 L (3.80-5.40) m/uL Hgb 9.6 L (11.4-16.0) gm/dL Hct 29.9 L (34.0-46.0) % Neutrophils # 10.5 H (1.3-7.7) k/uL ESR (0-20) mm/hr APTT 76.9 H (22.0-30.0) sec Potassium 3.3 L (3.5-5.1) mmol/L BUN 6 L (7-17) mg/dL Calcium 7.7 L (8.4-10.2) mg/dL 02/17/19 Range/Units 06:55 WBC (3.8-10.6) k/uL RBC (3.80-5.40) m/uL Hgb (11.4-16.0) gm/dL Hct (34.0-46.0) % Neutrophils # (1.3-7.7) k/uL ESR 66 H (0-20) mm/hr APTT (22.0-30.0) sec Potassium (3.5-5.1) mmol/L BUN (7-17) mg/dL Calcium (8.4-10.2) mg/dL Microbiology - Last 24 Hours (Table) 02/15/19 07:00 Blood Culture Gram Stain - Final Blood Blood Culture - Final Staphylococcus aureus 02/13/19 21:21 Blood Culture Gram Stain - Final Blood Blood Culture - Final Staphylococcus aureus Laboratory Results WBC 13.8 k/uL (3.8-10.6) H 02/17/19 06:04 RBC 3.42 m/uL (3.80-5.40) L 02/17/19 06:04 Hgb 9.6 gm/dL (11.4-16.0) L 02/17/19 06:04 Hct 29.9 % (34.0-46.0) L 02/17/19 06:04 MCV 87.6 fL (80.0-100.0) 02/17/19 06:04 MCH 28.2 pg (25.0-35.0) 02/17/19 06:04 MCHC 32.2 g/dL (31.0-37.0) 02/17/19 06:04 RDW 15.4 % (11.5-15.5) 02/17/19 06:04 Plt Count 305 k/uL (150-450) 02/17/19 06:04 Neutrophils % 77 % 02/17/19 06:04 Lymphocytes % 16 % 02/17/19 06:04 Monocytes % 3 % 02/17/19 06:04 Eosinophils % 1 % 02/17/19 06:04 Basophils % 1 % 02/17/19 06:04 Neutrophils # 10.5 k/uL (1.3-7.7) H 02/17/19 06:04 Lymphocytes # 2.2 k/uL (1.0-4.8) 02/17/19 06:04 Monocytes # 0.4 k/uL (0-1.0) 02/17/19 06:04 Eosinophils # 0.1 k/uL (0-0.7) 02/17/19 06:04 Basophils # 0.1 k/uL (0-0.2) 02/17/19 06:04 ESR 66 mm/hr (0-20) H 02/17/19 06:55 PT 13.7 sec (9.0-12.0) H 02/13/19 20:34 INR 1.3 (<1.2) H 02/13/19 20:34 APTT 76.9 sec (22.0-30.0) H 02/17/19 06:04 Sodium 137 mmol/L (137-145) 02/17/19 06:04 Potassium 3.3 mmol/L (3.5-5.1) L 02/17/19 06:04 Chloride 106 mmol/L (98-107) 02/17/19 06:04 Carbon Dioxide 25 mmol/L (22-30) 02/17/19 06:04 Anion Gap 6 mmol/L 02/17/19 06:04 BUN 6 mg/dL (7-17) L 02/17/19 06:04 Creatinine 0.53 mg/dL (0.52-1.04) 02/17/19 06:04 Est GFR (CKD-EPI)AfAm >90 (>60 ml/min/1.73 sqM) 02/17/19 06:04 Est GFR (CKD-EPI)NonAf >90 (>60 ml/min/1.73 sqM) 02/17/19 06:04 Glucose 85 mg/dL (74-99) 02/17/19 06:04 Plasma Lactic Acid Sven 1.0 mmol/L (0.7-2.0) 02/13/19 20:34 Calcium 7.7 mg/dL (8.4-10.2) L 02/17/19 06:04 Magnesium 1.9 mg/dL (1.6-2.3) 02/15/19 07:00 Total Bilirubin 0.7 mg/dL (0.2-1.3) 02/13/19 20:34 AST 27 U/L (14-36) 02/13/19 20:34 ALT 15 U/L (9-52) 02/13/19 20:34 Alkaline Phosphatase 76 U/L (38-126) 02/13/19 20:34 Troponin I <0.012 ng/mL (0.000-0.034) 02/14/19 08:11 NT-Pro-B Natriuret Pep 1930 pg/mL 02/13/19 20:34 Total Protein 5.9 g/dL (6.3-8.2) L 02/13/19 20:34 Albumin 2.5 g/dL (3.5-5.0) L 02/13/19 20:34 Urine Color Yellow 02/13/19 21:17 Urine Appearance Cloudy (Clear) H 02/13/19 21:17 Urine pH 8.0 (5.0-8.0) 02/13/19 21:17 Ur Specific Notrees 1.021 (1.001-1.035) 02/13/19 21:17 Urine Protein 2+ (Negative) H 02/13/19 21:17 Urine Glucose (UA) Negative (Negative) 02/13/19 21:17 Urine Ketones Negative (Negative) 02/13/19 21:17 Urine Blood Negative (Negative) 02/13/19 21:17 Urine Nitrite Negative (Negative) 02/13/19 21:17 Urine Bilirubin Negative (Negative) 02/13/19 21:17 Urine Urobilinogen >12.0 mg/dL (<2.0) 02/13/19 21:17 Ur Leukocyte Esterase Large (Negative) H 02/13/19 21:17 Urine RBC 8 /hpf (0-5) H 02/13/19 21:17 Urine WBC 47 /hpf (0-5) H 02/13/19 21:17 Ur Squamous Epith Cells 8 /hpf (0-4) H 02/13/19 21:17 Urine Bacteria Moderate /hpf (None) H 02/13/19 21:17 Hyaline Casts 1 /lpf (0-2) 02/13/19 21:17 Urine HCG, Qual Not Detected (Not Detectd) 02/13/19 21:17 Hepatitis A IgM Ab Non-Reactive (Non-Reactive) 02/15/19 07:00 Hep Bs Antigen Non-Reactive (Non-Reactive) 02/15/19 07:00 Hep B Core IgM Ab Non-Reactive (Non-Reactive) 02/15/19 07:00 Hep C IgG Ab Reactive (Non-Reactive) H 02/15/19 07:00 HIV-1 Antibody Non-Reactive (Non-Reactive) 02/15/19 07:00 HIV Ag/Ab Interpret 02/15/19 07:00 HIV p24 Antibody Non-Reactive (Non-Reactive) 02/15/19 07:00 HIV-2 Antibody Non-Reactive (Non-Reactive) 02/15/19 07:00 HIV P24 Antigen Non-Reactive (Non-Reactive) 02/15/19 07:00 Microbiology 02/15/19 07:00 Blood Blood Culture Gram Stain - Final 02/15/19 07:00 Blood Blood Culture - Final Staphylococcus aureus 02/13/19 21:21 Blood Blood Culture Gram Stain - Final 02/13/19 21:21 Blood Blood Culture - Final Staphylococcus aureus 02/15/19 07:00 Blood Blood Culture - Final 02/13/19 21:17 Urine,Voided Urine Culture - Final 02/13/19 21:21 Blood Blood Culture - Final Assessment and Plan (1) Intravenous drug abuse Current Visit: Yes Status: Acute Code(s): F19.10 - OTHER PSYCHOACTIVE SUBSTANCE ABUSE, UNCOMPLICATED SNOMED Code(s): 894016938 (2) Endocarditis of tricuspid valve Narrative/Plan: 43-year-old female who has history of active injection drug use with heroin presents to Hospital of feeling poorly with fevers chills altered mental status. Echocardiogram has revealed evidence of the tricuspid valve endocarditis without valvular dysfunction or destruction. If this point in time antibiotic therapy is altered to Ancef and high dose of 2 g IV piggyback every 8 hours. This will be continued while she is in hospital. First challenge will be to determine course of antibiotic the time of her discharge. May require utilizing once weekly intravenous antibiotic therapy at the infusion clinic. Will not be a candidate for daily IV antibiotic therapy. Follow blood cultures requested HIV and hepatitis testing are requested Beta hCG was negative Smoking cessation is advised. Family is updated to her current status. 02/15/2019 patient remains agitated. However she is hemodynamically stable. Clonidine was added to try to help with her withdrawal symptoms. She is not h ypotensive. Intravenous antibiotic therapy is with Ancef 2 g IV piggyback every 8 hours. His been discussed with the family she will not be a candidate for outpatient intravenous antibiotic therapy and will definitely have to have other plans at discharge. Cardiology is planned a NASREEN to further evaluate her tricuspid valve endocarditis. HIV is negative positive for hepatitis C which will need follow-up in the outpatient setting. 02/16/2019 the patient has undergone NASREEN and evidence of the extensive vegetation on the tricuspid valve is noted with significant tricuspid regurgitation. Blood cultures remain positive which we still with MSSA. HIV is negative hepatitis C positive which will have follow-up in the outpatient setting Cardiology is following status post the NASREEN and await their plans as far as any need for surgical evaluation given the large vegetation was seen. Follow-up blood cultures requested 02/17/2019 that we'll change the patient's status in that she still with signifi cant pain to the left chest mostly. Generalized discomforts are occurring related to her narcotic withdrawal. Blood cultures remain positive related to her tricuspid valve endocarditis. It is not unusual to take up to 7 days to clear bacteremia related to this type of infection. Continue the high-dose Ancef. As has noted she will not be a candidate for port placement will need to have a alternative plan for her outpatient antibiotic therapy at discharge. Current Visit: Yes Status: Acute Code(s): I36.8 - OTHER NONRHEUMATIC TRICUSPID VALVE DISORDERS SNOMED Code(s): 94230140 (3) MSSA bacteremia Current Visit: Yes Status: Acute Code(s): R78.81 - BACTEREMIA SNOMED Code( s): 585479592 (4) Multifocal pneumonia Current Visit: Yes Status: Acute Code(s): J18.9 - PNEUMONIA, UNSPECIFIED ORGANISM SNOMED Code(s): 179775429
[2019-02-18] MEDS: LORazepam 2 MG/ML INJ IV PRN ×3 (02:10→17:33)
[2019-02-18] MEDS: HYDROmorphone 1 MG/ML 1 ML SYRINGE IVP PRN ×5 (04:20→20:09)
[2019-02-18] MEDS: PANTOPRAZOLE 40 MG TABLET PO SCH (06:22)
[2019-02-18] MEDS: NICOTINE 21MG/24HR PATCH TRANSDERM SCH (08:10)
[2019-02-18] MEDS: cloNIDine HCL 0.1 MG TAB PO SCH ×3 (08:10→20:09)
[2019-02-18] MEDS: SIMETHICONE 80 MG CHEWABLE PO SCH ×2 (08:11→20:43)
--- NOTE | 2019-02-18 10:53 | P.PN ---
Subjective Progress Note Date: 02/18/19 This is a 43-year-old patient with no prior documented history of hypertension, nondiabetic, no hyperlipidemia, she does smoke cigarettes, and uses heroin IV. She states that she's been a heroin user for the past 2 years, prior to that she was a user of prescription drugs. She presents to the hospital on this occasion with symptoms of chest pain which she describes as a pressure sensation with associated sharp pains. Patient has also been running fevers. A CTA of the chest was performed on arrival here which revealed small pulmonary embolus in the right lower lobe segmental artery, multiple scattered foci of consolidation bilaterally throughout the lungs a broad differential diagnosis includes neoplastic process, it fevers septic emboli. Small and mildly enlarged right nodes. Hepatomegaly. Mildly dilated common bile duct. Splenomegaly. Chest x-ray shows multifocal pneumonia. EKG shows a sinus tachycardia with no acute changes. Blood pressure 96/68 with a heart rate in th e 60s, 100% on room air. White blood cell count 17.5, hemoglobin 10.3, platelet count 212. Sodium 125, potassium 3.0, BUN 15 and creatinine 0.7. Troponins are negative 3. BNP level 1930. Patient did have a temperature of 101.5 on arrival here. The cultures positive for gram-positive cocci in clusters. A consultation has been requested with infectious disease. Echocardiogram with Doppler study has been performed, results are yet pending. 02/15/2019 Patient's echocardiogram with Doppler study revealed a normal left ventricular systolic function, there is moderate tricuspid regurgitation with moderate sized mobile vegetation attached to the anterior tricuspid valve leaflet. Patient is definitely going through withdrawal today. Blood pressure 120/60 with a heart rate in the 70s, 98% on 2 L of oxygen. Parents are at bedside, patient has been advised that she'll need to undergo a transesophageal echocardiographic study tomorrow. The risks and the benefits were explained to the patient and her parents in detail, this will be performed tomorrow by Dr. Hatch. 02/17/2019 Patient did undergo a NASREEN yesterday by Dr. Rubin which revealed infective endocarditis involving the tricuspid valve with evidence of large vegetation measuring 1.5 cm involving the anterior tricuspid valve leaflet. There is severe tricuspid regurgitation. Small circumferential pericardial effusion is seen. The decision at this point in time is to stabilize the patient with antibiotics rather than surgery. Patient is complaining of some intermittent chest pain, pleuritic in nature. Likely secondary to the septic emboli. Blood pressure 122/70 with a heart rate of 60, 97% on room air. 02/18 2019 Patient was seen and examined this morning, continues to complain of a left- sided chest pain, sharp in nature, worsens with deep breathing. Hemodynamically she is stable. Continues to request more narcotics. Repeat chest x-ray was performed today which revealed mild congestive heart failure with pleural fluid worse than prior exam. Objective - Vital Signs Vital signs: Vital Signs Temp 98.1 F 02/18/19 08:00 Pulse 59 L 02/18/19 08:00 Resp 16 02/18/19 08:00 BP 115/68 02/18/19 08:00 Pulse Ox 95 02/18/19 08:00 Intake & Output 02/17/19 02/18/19 02/18/19 18:59 06:59 18:59 Intake Total 222 240 236 Balance 222 240 236 Weight 68.8 kg Intake: Oral 222 240 236 Other: Voiding Method Toilet # Voids 2 3 1 - Exam PHYSICAL EXAMINATION: GENERAL: 43-year-old female anxious and fidgety today HEENT: Head is atraumatic, normocephalic. Pupils equal, round. Sclera anicteric. Conjunctiva are clear. Mucous membranes of the mouth are moist. Neck is supple. There is no elevated jugular venous pressure. No carotid bruit is heard. HEART EXAMINATION: Heart S1 S2 1 systolic murmur is heard. CHEST EXAMINATION: Lungs clear with mild diminished air entry to the bases ABDOMEN: Soft, nontender. Bowel sounds are heard. No organomegaly noted. EXTREMITIES: 2+ peripheral pulses with no evidence of peripheral edema and no c madelyn tenderness noted. NEUROLOGIC patient is awake, alert and oriented 3 . - Labs CBC & Chem 7: 02/17/19 06:04 02/17/19 06:04 Labs: Abnormal Lab Results - Last 24 Hours (Table) 02/18/19 Range/Units 08:05 APTT 66.5 H (22.0-30.0) sec Microbiology - Last 24 Hours (Table) 02/17/19 06:04 Blood Culture - Preliminary Blood No Growth after 24 hours 02/15/19 07:00 Blood Culture Gram Stain - Final Blood Blood Culture - Final Staphylococcus aureus 08/06/19 21:21 Blood Culture Gram Stain - Final Blood Blood Culture - Final Staphylococcus aureus Assessment and Plan Plan: Assessment and plan #1 atypical chest pain, not suggestive of acute coronary syndrome. Troponins negative 3. EKG shows a sinus tachycardia with no acute changes. #2 sepsis, temperature 101.5 on arrival, elevated white blood cell count, evidence of multifocal pneumonia on chest x-ray and CAT scan, evidence on CAT scan also of a pulmonary embolism and ossicle septic emboli, positive blood cultures #3 IV heroin drug use, current, over the past 3 years she states she uses up to 3 times daily #4 nicotine dependence #5 tricuspid valve endocarditis Plan From cardiology's perspective, we'll recommend to continue this patient on current antibiotics, no surgery recommended at this point in time. We will give the patient one time dose of IV Lasix today. DNP note has been reviewed, I agree with a documented findings and plan of care. Patient was seen and examined.
--- NOTE | 2019-02-18 11:51 | P.PN ---
Subjective Progress Note Date: 02/18/19 Principal diagnosis: Infective endocarditis with septic emboli The patient is seen today 02/18/2019 in follow-up on the selective care unit. She is awake and alert in no acute distress. Resting quite comfortably in bed. On room air. Still having some ongoing issues with intermittent chest discomfort. Remains on a heparin drip. Antibiotics in the form of cefazolin. She remains afebrile. Hemodynamically stable. Objective - Vital Signs Vital signs: Vital Signs Temp 98.1 F 02/18/19 08:00 Pulse 59 L 02/18/19 08:00 Resp 16 02/18/19 08:00 BP 115/68 02/18/19 08:00 Pulse Ox 95 02/18/19 08:00 Intake & Output 02/17/19 02/18/19 02/18/19 18:59 06:59 18:59 Intake Total 222 240 236 Balance 222 240 236 Weight 68.8 kg Intake: Oral 222 240 236 Other: Voiding Method Toilet # Voids 2 3 1 - Exam GENERAL EXAM: Alert, more comfortable today, in no respiratory distress. On room air. HEAD: Normocephalic. EYES: Normal reaction of pupils, equal size. NOSE: Clear with pink turbinates. THROAT: No erythema or exudates. NECK: No masses, no JVD. CHEST: No chest wall deformity. LUNGS: Equal air entry with scattered crackles. CVS: S1 and S2 normal with an audible murmur, regular rhythm. ABDOMEN: No hepatosplenomegaly, normal bowel sounds, no guarding or rigidity. SPINE: No scoliosis or deformity SKIN: No rashes CENTRAL NERVOUS SYSTEM: No focal deficits, tone is normal in all 4 extremities. EXTREMITIES: There is no peripheral edema. No clubbing, no cyanosis. Peripheral pulses are intact. - Labs CBC & Chem 7: 02/17/19 06:04 02/17/19 06:04 Labs: Abnormal Lab Results - Last 24 Hours (Table) 02/18/19 Range/Units 08:05 APTT 66.5 H (22.0-30.0) sec Microbiology - Last 24 Hours (Table) 02/17/19 06:04 Blood Culture - Preliminary Blood No Growth after 24 hours 02/15/19 07:00 Blood Culture Gram Stain - Final Blood Blood Culture - Final Staphylococcus aureus 08/06/19 21:21 Blood Culture Gram Stain - Final Blood Blood Culture - Final Staphylococcus aureus Assessment and Plan Assessment: Pression: #1 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 There are also septic emboli in the bilateral lungs. NASREEN reveals infective endocarditis involving the tricuspid valve with evidence of large vege tation measuring 1.5 cm involving the anterior tricuspid valve leaflet. There is severe tricuspid regurgitation seen. #2 History of IV heroin use. #3 History of smoking crack cocaine. #4 History of hepatitis C. Her left #5 Chronic obstructive pulmonary disease, suspected. #6 Chronic and ongoing tobacco dependence. #7 Anemia of chronic disease. Plan: The patient was seen and evaluated by Dr. Dennis. No pulmonary distress. On room air. Remains on a heparin drip. She could be transitioned to an oral anticoagulant for the right lower lobe PE. She remains on Ancef per ID services. We'll continue to follow closely and make further recommendations based on her clinical status. I, the cosigning physician, performed a history & physical examination of the patient. Lungs sounds are clear. Maintaining good O2 saturations in the 90s on room air. I discussed the assessment and plan of care with my nurse practitioner, Nayeli Westfall. I attest to the above note as dictated by her.
--- NOTE | 2019-02-18 13:23 | CT ---
EXAMINATION TYPE: CT brain wo con DATE OF EXAM: 02/18/2019 COMPARISON: None INDICATION: Altered mental status changes DLP: 1046.4 mGycm, Automated exposure control for dose reduction was used. CONTRAST: None CT of the brain is performed utilizing 3 mm thick sections through the posterior fossa and 3 mm thick sections through the remaining calvarium. Study is performed within 24 hours of arrival to the hosp [facility]. No abnormal hyperdensity is present to suggest an acute intracranial hemorrhage. No mass lesion is evident. No acute infarcts are evident. Ventricles and sulci are appropriate for the patient age. Paranasal sinuses and mastoid air cells within the [id number] are clear. IMPRESSIONS: 1. Normal CT Brain
[2019-02-18 17:21] LABS: Anisocytosis Slight; HGB 10.4 gm/dL (11.4-16.0); MCH 27.9 pg (25.0-35.0); MCHC 31.6 g/dL (31.0-37.0); MCV 88.5 fL (80.0-100.0); Platelet Count 459 k/uL (150-450); RBC 3.73 m/uL (3.80-5.40); RDW 16.8 % (11.5-15.5); WBC 13.9 k/uL (3.8-10.6)
[2019-02-18] MEDS: APIXABAN 5 MG TAB PO SCH (20:09)
--- NOTE | 2019-02-18 22:56 | PN ---
PROGRESS NOTE DATE OF SERVICE: 02/18/2019 This 43-year-old woman was admitted with infective endocarditis and significant vegetation on the right side of the heart. The patient is confused today. CT scan of the brain was ordered by me, showed no acute abnormality. The patient is on broad- spectrum IV antibiotics. Patient also had withdrawal symptoms which is improving also at this time. The patient and family are concerned about surgery. Per Cardiology, no surgery is indicated at this time. PAST MEDICAL HISTORY: Reviewed. REVIEW OF SYSTEMS: CARDIOVASCULAR: As mentioned earlier. RESPIRATORY: As mentioned earlier. GI no nausea or vomiting. : No dysuria. NERVOUS SYSTEM: No numbness or weakness. ALLERGY/IMMUNOLOGY: No asthma or hayfever. MUSCULOSKELETAL: As mentioned earlier. CURRENT MEDICATIONS: Reviewed and include: 1. DuoNeb q.i.d. and p.r.n. 2. Cefazolin 2 g IV q.i.d. 3. Catapres 0.1 t.i.d. 4. Heparin. 5. Motrin. 6. Ativan. 7. Magnesium oxide. 8. Zofran. 9. Protonix. 10.Mylicon. PHYSICAL EXAM: The patient is alert, oriented x3. Pulse 70. Blood pressure 121/70, respirations 18, temperature 98.4, pulse ox 94% on room air. HEENT: Conjunctivae normal. NECK: No jugular venous distention. CARDIOVASCULAR: S1, S2 muffled. Cardiac ejection systolic murmur. RESPIRATORY: Breath sounds diminished in the bases. A few scattered rhonchi. ABDOMEN: Soft. Nontender. NERVOUS SYSTEM: No focal deficits. LAB STUDIES: WBC 13.2, hemoglobin 9.6. Accu-Cheks noted. ASSESSMENT: 1. Infective endocarditis with tricuspid valve vegetations, subacute with possible sepsis, present on admission with MSSA. 2. Bilateral pneumonia possibly septic emboli. 3. Possible acute pulmonary embolism. 4. History of IV drug abuse. 5. Hyponatremia. 6. Hypokalemia. 7. Anemia of chronic disease. 8. Heparin monitoring. 9. Possible urinary tract infection. 10.History of chronic back pain. 11.History of hepatitis C. 12.History of nicotine dependence. 13.History of polysubstance abuse. RECOMMENDATIONS AND DISCUSSION: In this 43 -year-old woman who presented with multiple complex medical issues, we will monitor the patient closely, continue the current medications, management and symptomatic treatment. I would recommend Eliquis at this time. Guarded prognosis. Further recommendations to follow. Continue the rest of medications and as mentioned earlier, patient is not a candidate for surgery at this time but overall prognosis extremely guarded. Further recommendations to follow. Discussed with the family and patient at length. MMODL / IJN: [id number] /
[2019-02-19] MEDS: HYDROmorphone 1 MG/ML 1 ML SYRINGE IVP PRN ×7 (00:39→23:57)
[2019-02-19] MEDS: LORazepam 2 MG/ML INJ IV PRN ×5 (05:59→23:58)
[2019-02-19] MEDS: SIMETHICONE 80 MG CHEWABLE PO SCH ×2 (08:06→21:55)
[2019-02-19] MEDS: cloNIDine HCL 0.1 MG TAB PO SCH ×3 (08:06→21:55)
[2019-02-19] MEDS: NICOTINE 21MG/24HR PATCH TRANSDERM SCH (08:06)
[2019-02-19] MEDS: APIXABAN 5 MG TAB PO SCH ×2 (08:07→19:59)
[2019-02-19] MEDS: PANTOPRAZOLE 40 MG TABLET PO SCH (08:07)
[2019-02-19 08:12] LABS: Anisocytosis Slight; Basophils # (A) 0.1 k/uL (0-0.2); Basophils % (A) 0 %; Eosinophils # (A) 0.2 k/uL (0-0.7); Eosinophils % (A) 1 %; HCT 32.4 % (34.0-46.0); HGB 10.3 gm/dL (11.4-16.0); Lymphocytes % (A) 14 %; MCHC 31.8 g/dL (31.0-37.0); MCV 88.1 fL (80.0-100.0); Monocytes # (A) 0.5 k/uL (0-1.0); Monocytes % (A) 4 %; Neutrophils # (A) 11.1 k/uL (1.3-7.7); Neutrophils % (A) 79 %; Platelet Count 535 k/uL (150-450); RBC 3.68 m/uL (3.80-5.40); RDW 17.3 % (11.5-15.5)
[2019-02-19 08:36] LABS: African American GFR (CKD) >90 (>60 ml/min/1.73 sqM); Anion Gap 5 mmol/L; Blood Urea Nitrogen 9 mg/dL (7-17); Calcium 8.1 mg/dL (8.4-10.2); Carbon Dioxide 27 mmol/L (22-30); Chloride 106 mmol/L (98-107); Glucose 88 mg/dL (74-99); Potassium 4.1 mmol/L (3.5-5.1); Sodium 138 mmol/L (137-145)
--- NOTE | 2019-02-19 14:16 | P.PN ---
Subjective Progress Note Date: 02/19/19 This is a 43-year-old patient with no prior documented history of hypertension, nondiabetic, no hyperlipidemia, she does smoke cigarettes, and uses heroin IV. She states that she's been a heroin user for the past 2 years, prior to that she was a user of prescription drugs. She presents to the hospital on this occasion with symptoms of chest pain which she describes as a pressure sensation with associated sharp pains. Patient has also been running fevers. A CTA of the chest was performed on arrival here which revealed small pulmonary embolus in the right lower lobe segmental artery, multiple scattered foci of consolidation bilaterally throughout the lungs a broad differential diagnosis includes neoplastic process, it fevers septic emboli. Small and mildly enlarged right nodes. Hepatomegaly. Mildly dilated common bile duct. Splenomegaly. Chest x-ray shows multifocal pneumonia. EKG shows a sinus tachycardia with no acute changes. Blood pressure 96/68 with a heart rate in th e 60s, 100% on room air. White blood cell count 17.5, hemoglobin 10.3, platelet count 212. Sodium 125, potassium 3.0, BUN 15 and creatinine 0.7. Troponins are negative 3. BNP level 1930. Patient did have a temperature of 101.5 on arrival here. The cultures positive for gram-positive cocci in clusters. A consultation has been requested with infectious disease. Echocardiogram with Doppler study has been performed, results are yet pending. 02/15/2019 Patient's echocardiogram with Doppler study revealed a normal left ventricular systolic function, there is moderate tricuspid regurgitation with moderate sized mobile vegetation attached to the anterior tricuspid valve leaflet. Patient is definitely going through withdrawal today. Blood pressure 120/60 with a heart rate in the 70s, 98% on 2 L of oxygen. Parents are at bedside, patient has been advised that she'll need to undergo a transesophageal echocardiographic study tomorrow. The risks and the benefits were explained to the patient and her parents in detail, this will be performed tomorrow by Dr. aHtch. 02/17/2019 Patient did undergo a NASREEN yesterday by Dr. Rubin which revealed infective endocarditis involving the tricuspid valve with evidence of large vegetation measuring 1.5 cm involving the anterior tricuspid valve leaflet. There is severe tricuspid regurgitation. Small circumferential pericardial effusion is seen. The decision at this point in time is to stabilize the patient with antibiotics rather than surgery. Patient is complaining of some intermittent chest pain, pleuritic in nature. Likely secondary to the septic emboli. Blood pressure 122/70 with a heart rate of 60, 97% on room air. 02/18 2019 Patient was seen and examined this morning, continues to complain of a left- sided chest pain, sharp in nature, worsens with deep breathing. Hemodynamically she is stable. Continues to request more narcotics. Repeat chest x-ray was performed today which revealed mild congestive heart failure with pleural fluid worse than prior exam. 02/19/2019 Patient was seen and examined this morning, much more alert today overall. IV heparin a been discontinued and patient was initiated on Eliquis per PE protocol. Blood pressure 126/78 with a heart rate in the 80s, 94% on room air. White blood cell count 14.0, hemoglobin 10.3, platelet count 535. Sodium 138, potassium 4.1, BUN 9 and creatinine 0.5. Objective - Vital Signs Vital signs: Vital Signs Temp 98.1 F 02/19/19 12:00 Pulse 89 02/19/19 12:00 Resp 18 02/19/19 12:00 BP 127/79 02/19/19 12:00 Pulse Ox 94 L 02/19/19 12:00 Intake & Output 02/18/19 02/19/19 02/19/19 18:59 06:59 18:59 Intake Total 361 130 Balance 361 130 Weight 67 kg Intake: IV 80 ns@10 80 Intake, IV Titration 50 Amount ceFAZolin 2 gm In Sodium 50 Chloride 0.9% 50 ml @ 100 mls/hr IVPB Q8H [facility] Rx#: [id number] Oral 361 Other: Voiding Method Toilet Toilet # Voids 1 3 - Exam PHYSICAL EXAMINATION: GENERAL: 43-year-old female anxious and fidgety today HEENT: Head is atraumatic, normocephalic. Pupils equal, round. Sclera anicteric. Conjunctiva are clear. Mucous membranes of the mouth are moist. Neck is supple. There is no elevated jugular venous pressure. No carotid bruit is heard. HEART EXAMINATION: Heart S1 S2 1 systolic murmur is heard. CHEST EXAMINATION: Lungs clear with improvement in air entry to the bases ABDOMEN: Soft, nontender. Bowel sounds are heard. No organomegaly noted. EXTREMITIES: 2+ peripheral pulses with no evidence of peripheral edema and no calf tenderness noted. NEUROLOGIC patient is awake, alert and oriented 3 . - Labs CBC & Chem 7: 02/19/19 07:21 08 07:21 Labs: Abnormal Lab Results - Last 24 Hours (Table) 02/18/19 02/19/19 02/19/19 Range/Units 17:01 07:21 07:21 WBC 13.9 H 14.0 H (3.8-10.6) k/uL RBC 3.73 L 3.68 L (3.80-5.40) m/uL Hgb 10.4 L 10.3 L (11.4-16.0) gm/dL Hct 33.0 L 32.4 L (34.0-46.0) % RDW 16.8 H 17.3 H (11.5-15.5) % Plt Count 459 H 535 H (150-450) k/uL Neutrophils # 11.1 H (1.3-7.7) k/uL Calcium 8.1 L (8.4-10.2) mg/dL Microbiology - Last 24 Hours (Table) 02/18/19 06:04 Blood Culture - Preliminary Blood No Growth after 24 hours 02/17/19 06:04 Blood Culture - Preliminary Blood No Growth after 48 hours Assessment and Plan Plan: Assessment and plan #1 atypical chest pain, not suggestive of acute coronary syndrome. Troponins negative 3. EKG shows a sinus tachycardia with no acute changes. #2 sepsis, temperature 101.5 on arrival, elevated white blood cell count, evidence of multifocal pneumonia on chest x-ray and CAT scan, evidence on CAT scan also of a pulmonary embolism and ossicle septic emboli, positive blood cultures #3 IV heroin drug use, current, over the past 3 years she states she uses up to 3 times daily #4 nicotine dependence #5 tricuspid valve endocarditis Plan From cardiology's perspective, we'll recommend to continue this patient on current antibiotics, no surgery recommended at this point in time. We will c eileen to follow. DNP note has been reviewed, I agree with a documented findings and plan of care. Patient was seen and examined.
--- NOTE | 2019-02-19 15:36 | P.PN ---
Subjective Progress Note Date: 02/19/19 Principal diagnosis: Infective endocarditis with septic emboli Patient is seen today 02/19/2019 in follow-up on the selective care unit. She has been alert and oriented. Sometimes teary-eyed for complaints of pain and discomfort and requesting more pain medications. She is currently receiving Dilaudid 1 mg every 4 hours along with Ativan for anxiety and withdrawal symptoms. She is maintaining good O2 saturations in the mid 90s on room air. She's been afebrile. Hemodynamically stable. Follow-up blood cultures reveal no growth. I count 14.0. Hemoglobin 10.3. Creatinine 0.53. She remains on cefazolin. Transitioned to oral anticoagulants in the form of Eliquis. N icoDerm patch is in place. Objective - Vital Signs Vital signs: Vital Signs Temp 98.1 F 02/19/19 12:00 Pulse 89 02/19/19 12:00 Resp 18 02/19/19 12:00 BP 127/79 02/19/19 12:00 Pulse Ox 94 L 02/19/19 12:00 Intake & Output 02/18/19 02/19/19 02/19/19 18:59 06:59 18:59 Intake Total 361 130 Balance 361 130 Weight 67 kg Intake: IV 80 ns@10 80 Intake, IV Titration 50 Amount ceFAZolin 2 gm In Sodium 50 Chloride 0.9% 50 ml @ 100 mls/hr IVPB Q8H [facility] Rx#: [id number] Oral 361 Other: Voiding Method Toilet Toilet # Voids 1 3 - Exam GENERAL EXAM: Alert, 43-year-old female patient, in no respiratory distress. On room air. HEAD: Normocephalic. EYES: Normal reaction of pupils, equal size. NOSE: Clear with pink turbinates. THROAT: No erythema or exudates. NECK: No masses, no JVD. CHEST: No chest wall deformity. LUNGS: Equal air entry with scattered crackles. CVS: S1 and S2 normal with an audible murmur, regular rhythm. ABDOMEN: No hepatosplenomegaly, normal bowel sounds, no guarding or rigidity. SPINE: No scoliosis or deformity SKIN: No rashes CENTRAL NERVOUS SYSTEM: No focal deficits, tone is normal in all 4 extremities. EXTREMITIES: There is no peripheral edema. No clubbing, no cyanosis. Peripheral pulses are intact. - Labs CBC & Chem 7: 02/19/19 07:21 08 07:21 Labs: Abnormal Lab Results - Last 24 Hours (Table) 02/18/19 02/19/19 02/19/19 Range/Units 17:01 07:21 07:21 WBC 13.9 H 14.0 H (3.8-10.6) k/uL RBC 3.73 L 3.68 L (3.80-5.40) m/uL Hgb 10.4 L 10.3 L (11.4-16.0) gm/dL Hct 33.0 L 32.4 L (34.0-46.0) % RDW 16.8 H 17.3 H (11.5-15.5) % Plt Count 459 H 535 H (150-450) k/uL Neutrophils # 11.1 H (1.3-7.7) k/uL Calcium 8.1 L (8.4-10.2) mg/dL Microbiology - Last 24 Hours (Table) 02/18/19 06:04 Blood Culture - Preliminary Blood No Growth after 24 hours 02/17/19 06:04 Blood Culture - Preliminary Blood No Growth after 48 hours Assessment and Plan Assessment: Pression: #1 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 There are also septic emboli in the bilateral lungs and a small right lower lung pulmonary emboli. NASREEN reveals infective endocarditis involving the tricuspid valve with evidence of large vegetation measuring 1.5 cm involving the anterior tricuspid valve leaflet. There is severe tricuspid regurgitation seen. #2 History of IV heroin use. #3 History of smoking crack cocaine. #4 History of hepatitis C. Her left #5 Chronic obstructive pulmonary disease, suspected. #6 Chronic and ongoing tobacco dependence. #7 Anemia of chronic disease. Plan: The patient was seen and evaluated by Dr. Cook. No pulmonary complaints. On room air. Transitioned to oral anticoagulants in the form of Eliquis. She remains on Ancef per ID services. We'll continue to follow closely and make further recommendations based on her clinical status. I, the cosigning physician, performed a history & physical examination of the patient. Lungs sounds are clear. Maintaining good O2 saturations in the 90s on room air. I discussed the assessment and plan of care with my nurse practitioner, Nayeli Malou. I attest to the above note as dictated by her.
--- NOTE | 2019-02-20 00:54 | P.PN ---
Subjective Progress Note Date: 02/19/19 Principal diagnosis: This is a 43-year-old female with a past medical history of multiple medical problems who was admitted with an elevated white blood count hyponatremia and hypokalemia. A CTA was done showing a small pulmonary embolism in the right lower segmental artery and multiple scattered foci of consolidation airspace disease bilaterally with small cavitary appearance indicating possible septic emboli as being closely monitored. Pulmonary and cardiology are following. Patient is lying in bed in mild acute distress stating she is having side pain with father at the bedside. Patient is asking for more Dilaudid stating that the pain is severe. Patient denies any shortness of breath or chest pain at this time. Patient is twisting back and forth in bed stating that the site pain is severe. Patient denies any nausea or vomiting at this time. Patient is afebrile. Patient does have a history of polysubstance abuse and is having active withdrawals. Patient is to undergo a NASREEN in the morning. Patient is currently still on IV heparin drip. Guarded prognosis REVIEW OF SYSTEMS: ENT: No diminished vision or hearing. CARDIOVASCULAR: Mentioned earlier. RESPIRATORY: As mentioned earlier. GI: No nauscea, vomiting or diarrhea. : No dysuria or retention. NERVOUS SYSTEM: No numbness or weakness. ALLERGY/IMMUNOLOGY: No asthma or hay fever. MUSCULOSKELETAL: As mentioned earlier. HEMATOLOGY/ONCOLOGY: No history of anemia. ENDOCRINE: No history of diabetes or hypothyroidism. CONSTITUTIONAL: As mentioned earlier. DERMATOLOGY: Negative. PSYCHIATRY: Mentioned earlier. RHEUMATOLOGY: Negative. Active Medications Albuterol/Ipratropium (Duoneb 0.5 Mg-3 Mg/3 Ml Soln) 3 ml INHALATION RT-Q4H PRN PRN Reason: shortness of breath Clonidine (Catapres) 0.1 mg PO TID [facility] Last Admin: 02/15/19 15:34 Dose: 0.1 mg Documented by: Heparin Sodium (Porcine) (Heparin) 0 unit IV PER PROTOCOL PRN; Protocol PRN Reason: Low PTT Hydromorphone HCl (Dilaudid) 1 mg IVP Q4H PRN PRN Reason: Pain Last Admin: 02/15/19 13:08 Dose: 1 mg Documented by: Heparin Sodium/Sodium Chloride (25,000 unit/ Sodium Chloride) 250 mls @ 11.022 mls/hr IV .[id number] [facility]; Protocol Last Admin: 02/15/19 15:35 Dose: 26.53 units/kg/hr, 16.247 mls/hr Documented by: Cefazolin Sodium 2 gm/ Sodium (Chloride) 50 mls @ 100 mls/hr IVPB Q8H [facility] Last Admin: 02/15/19 13:06 Dose: 100 mls/hr Documented by: Lorazepam (Ativan) 0.5 mg IV Q4HR PRN PRN Reason: Anxiety Last Admin: 02/15/19 15:22 Dose: 0.5 mg Documented by: Miscellaneous Information (Magnesium Per Protocol) 1 each MISCELLANE DAILY PRN; Protocol PRN Reason: Per Protocol Miscellaneous Information (Potassium Per Protocol) 1 each MISCELLANE DAILY PRN; Protocol PRN Reason: Per Protocol Nicotine (Habitrol 21mg/24hr Patch) 1 patch TRANSDERM DAILY [facility] Last Admin: 02/15/19 09:22 Dose: 1 patch Documented by: Ondansetron HCl (Zofran) 8 mg IVP Q8H PRN PRN Reason: Nausea Pantoprazole Sodium (Protonix) 40 mg IV DAILY [facility] Last Admin: 02/15/19 09:26 Dose: 40 mg Documented by: 02/16/2019 Patient underwent a NASREEN this morning showing extensive vegetation and tricuspid valve regurgitation. Patient is currently on IV antibiotic therapy for e ndocarditis and may require outpatient antibiotic therapy. Infectious disease is following closely and coordinating care for IV therapy once discharged for weekly therapy at the clinic due to polysubstance and IV drug use history and risk of using the midline or PICC for IV access of illicit drug use. Parents are at the bedside and are aware of the treatment plan and agree to close monitoring. Hematology/Oncology was consulted for continued anticoagulation therapy recommendations. Patient is currently still on IV heparin and may be switched to oral once procedures are done and insurance coverage is verified. Patient denies any shortness of breath, chest pain, or palpitations. Patient is afebrile. Patient is still having a lot of generalized pain and requesting an increase in pain medication. Patient's withdrawal symptoms have lessened but are still present. Patient is up and walking to the bathroom with no difficulty. 02/19/2019 Patient is sitting up in bed in no acute distress and is pleasant this afternoon. Patient is awake and alert moreso than yesterday. Patient is attempting to straighten her hair as she states it has been a mess for the last 3 days. Mother is at the bedside. Patient is currently still on IV antibiotics per infectious disease and is being closely monitored. Patient has transitioned to oral anticoagulation. Patient denies any chest pain, shortness of breath or palpitations at this time. Patient denies any nausea or vomiting and tolerating diet well. Patient is afebrile. Patient is still limited visitation per parents request due to history of drug abuse and they are in fear of some of her friends bringing illicit drugs into the hospital. Guarded prognosis. Objective - Vital Signs Vital signs: Vital Signs Temp 98.9 F 02/19/19 20:00 Pulse 72 02/19/19 20:00 Resp 16 02/19/19 20:00 BP 129/78 02/19/19 20:00 Pulse Ox 94 L 02/19/19 20:00 Intake & Output 02/19/19 02/19/19 02/20/19 06:59 18:59 06:59 Intake Total 130 50 Balance 130 50 Weight 67 kg Intake: IV 80 ns@10 80 Intake, IV Titration 50 50 Amount ceFAZolin 2 gm In Sodium 50 50 Chloride 0.9% 50 ml @ 100 mls/hr IVPB Q8H [facility] Rx#: [id number] Other: Voiding Method Toilet Toilet Toilet # Voids 3 1 1 - Exam Gen: This is a 43-year-old female sitting up in bed in no acute distress. Vital signs are stable. Temp is 98.1, pulse is 89, respirations 18, blood pressure 127/79, oxygen saturation is 94% on room air. HEENT: Head is atraumatic, normocephalic. Pupils equal, round. Sclerae is anicteric. NECK: Supple. No JVD. No lymphadenopathy. No thyromegaly. LUNGS: Diminished in the bases with a few scattered rhonchi and crackles noted. No intercostal retractions. HEART: S1 and S2 are muffled with an ejection systolic murmur. ABDOMEN: Soft. Bowel sounds are present. No masses. No tenderness. EXTREMITIES: No pedal edema. No calf tenderness. NEUROLOGICAL: Patient is awake, alert and oriented x3. Cranial nerves 2 through 12 are grossly intact. - Labs CBC & Chem 7: 02/19/19 07:21 08/12/19 07:21 Labs: Abnormal Lab Results - Last 24 Hours (Table) 02/19/19 02/19/19 Range/Units 07:21 07:21 WBC 14.0 H (3.8-10.6) k/uL RBC 3.68 L (3.80-5.40) m/uL Hgb 10.3 L (11.4-16.0) gm/dL Hct 32.4 L (34.0-46.0) % RDW 17.3 H (11.5-15.5) % Plt Count 535 H (150-450) k/uL Neutrophils # 11.1 H (1.3-7.7) k/uL Calcium 8.1 L (8.4-10.2) mg/dL Microbiology - Last 24 Hours (Table) 02/18/19 06:04 Blood Culture - Preliminary Blood No Growth after 24 hours 02/17/19 06:04 Blood Culture - Preliminary Blood No Growth after 48 hours Assessment and Plan Assessment: Bilateral pneumonia, possibly septic emboli secondary to infective endocarditis present on admission with possible sepsis present on admission Infective endocarditis with tricuspid valve vegetations, subacute with possible sepsis, present on admission with MSSA possible acute pulmonary embolism History of IV drug abuse Hyponatremia Hypokalemia Anemia of chronic disease Possible urinary tract infection History of back pain History of hepatitis C History of nicotine dependence Polysubstance abuse Recommendations and discussion This is a 43-year-old woman who has multiple complex medical issues and will be monitored closely. Recommend continue current medications, management, and symptomatic treatment. The patient is on broad-spectrum IV antibiotics and will continue per infectious disease recommendations. Cardiology is following the patient closely. Guarded prognosis due to the multiple complex medical issues. Patient is now on oral anticoagulation per hematology recommendations and will continue 6 months post hospitalization. Prognosis is extremely guarded. Fu rther recommendations to follow.
[2019-02-20] MEDS: LORazepam 2 MG/ML INJ IV PRN ×3 (04:09→12:11)
[2019-02-20] MEDS: HYDROmorphone 1 MG/ML 1 ML SYRINGE IVP PRN ×3 (04:09→12:12)
[2019-02-20 06:00] LABS: Basophils % (A) 0 %; Eosinophils # (A) 0.2 k/uL (0-0.7); Eosinophils % (A) 2 %; HCT 32.3 % (34.0-46.0); HGB 10.5 gm/dL (11.4-16.0); Lymphocytes # (A) 1.9 k/uL (1.0-4.8); Lymphocytes % (A) 16 %; MCH 28.4 pg (25.0-35.0); MCHC 32.4 g/dL (31.0-37.0); MCV 87.6 fL (80.0-100.0); Mean Platelet Volume 7.7; Monocytes # (A) 0.6 k/uL (0-1.0); Monocytes % (A) 5 %; Neutrophils # (A) 9.5 k/uL (1.3-7.7); Neutrophils % (A) 76 %; Platelet Count 587 k/uL (150-450); RBC 3.69 m/uL (3.80-5.40); RDW 15.9 % (11.5-15.5); WBC 12.4 k/uL (3.8-10.6)
[2019-02-20 06:18] LABS: African American GFR (CKD) >90 (>60 ml/min/1.73 sqM); Anion Gap 5 mmol/L; Blood Urea Nitrogen 10 mg/dL (7-17); Carbon Dioxide 27 mmol/L (22-30); Chloride 104 mmol/L (98-107); Glucose 91 mg/dL (74-99); Potassium 4.3 mmol/L (3.5-5.1); Sodium 136 mmol/L (137-145)
[2019-02-20] MEDS: PANTOPRAZOLE 40 MG TABLET PO SCH (06:28)
[2019-02-20] MEDS: cloNIDine HCL 0.1 MG TAB PO SCH ×3 (08:18→20:56)
[2019-02-20] MEDS: SIMETHICONE 80 MG CHEWABLE PO SCH ×2 (08:18→20:56)
[2019-02-20] MEDS: NICOTINE 21MG/24HR PATCH TRANSDERM SCH (08:18)
[2019-02-20] MEDS: APIXABAN 5 MG TAB PO SCH (08:19)
--- NOTE | 2019-02-20 13:03 | P.PN ---
Subjective Progress Note Date: 02/20/19 Principal diagnosis: Infective endocarditis with septic emboli The patient is seen today 02/20/2018 in follow-up on the selective care unit. She is awake and alert in no acute distress. Resting comfortably in bed. He is maintaining good O2 saturations in the upper 90s on room air. She's afebrile. Hemodynamically stable. White count 12.4. Hemoglobin 10.5. Creatinine 0.53. She remains on cefazolin. Anticoagulated with Eliquis. Objective - Vital Signs Vital signs: Vital Signs Temp 98.8 F 02/20/19 12:00 Pulse 67 02/20/19 12:00 Resp 20 02/20/19 12:00 BP 124/77 02/20/19 12:00 Pulse Ox 96 02/20/19 12:00 Intake & Output 02/19/19 02/20/19 02/20/19 18:59 06:59 18:59 Intake Total 50 Balance 50 Weight 66.1 kg Intake: Intake, IV Titration 50 Amount ceFAZolin 2 gm In Sodium 50 Chloride 0.9% 50 ml @ 100 mls/hr IVPB Q8H [facility] BEDS AT THE [facility] Rx#: [id number] Other: Voiding Method Toilet Toilet # Voids 1 1 - Exam GENERAL EXAM: Alert, 43-year-old female patient, in no respiratory distress. On room air. HEAD: Normocephalic. EYES: Normal reaction of pupils, equal size. NOSE: Clear with pink turbinates. THROAT: No erythema or exudates. NECK: No masses, no JVD. CHEST: No chest wall deformity. LUNGS: Equal air entry with scattered crackles. CVS: S1 and S2 normal with an audible murmur, regular rhythm. ABDOMEN: No hepatosplenomegaly, normal bowel sounds, no guarding or rigidity. SPINE: No scoliosis or deformity SKIN: No rashes CENTRAL NERVOUS SYSTEM: No focal deficits, tone is normal in all 4 extremities. EXTREMITIES: There is no peripheral edema. No clubbing, no cyanosis. P eripheral pulses are intact. - Labs CBC & Chem 7: 02/20/19 05:21 02/20/19 05:21 Labs: Abnormal Lab Results - Last 24 Hours (Table) 02/20/19 02/20/19 Range/Units 05:21 05:21 WBC 12.4 H (3.8-10.6) k/uL RBC 3.69 L (3.80-5.40) m/uL Hgb 10.5 L (11.4-16.0) gm/dL Hct 32.3 L (34.0-46.0) % RDW 15.9 H (11.5-15.5) % Plt Count 587 H (150-450) k/uL Neutrophils # 9.5 H (1.3-7.7) k/uL Sodium 136 L (137-145) mmol/L Calcium 8.0 L (8.4-10.2) mg/dL Microbiology - Last 24 Hours (Table) 02/18/19 06:04 Blood Culture - Preliminary Blood No Growth after 48 hours 02/17/19 06:04 Blood Culture - Preliminary Blood No Growth after 72 hours Assessment and Plan Assessment: Pression: #1 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 There are also septic emboli in the bilateral lungs and a small right lower lung pulmonary emboli. NASREEN reveals infective endocarditis involving the tricuspid valve with evidence of large vegetation measuring 1.5 cm involving the anterior tricuspid valve leaflet. There is severe tricuspid regurgitation seen. #2 History of IV heroin use. #3 History of smoking crack cocaine. #4 History of hepatitis C. Her left #5 Chronic obstructive pulmonary disease, suspected. #6 Chronic and ongoing tobacco dependence. #7 Anemia of chronic disease. Plan: The patient was seen and evaluated by Dr. Cook. No pulmonary complaints. She remains on Ancef per ID services. The plan is for long-term IV antibiotics. She will be discharged to an [facility] for inpatient rehabilitation. Discharge planning in place. We'll continue to follow closely and make further recommendations based on her clinical status. I, the cosigning physician, performed a history & physical examination of the patient. Lungs sounds are clear. Maintaining good O2 saturations in the 90s on room air. I discussed the assessment and plan of care with my nurse practitioner, Nayeli Westfall. I attest to the above note as dictated by her.
[2019-02-20 13:12] VITALS: BMI 24.2
--- NOTE | 2019-02-20 15:12 | P.PN ---
Subjective Progress Note Date: 02/20/19 This is a 43-year-old patient with no prior documented history of hypertension, nondiabetic, no hyperlipidemia, she does smoke cigarettes, and uses heroin IV. She states that she's been a heroin user for the past 2 years, prior to that she was a user of prescription drugs. She presents to the hospital on this occasion with symptoms of chest pain which she describes as a pressure sensation with associated sharp pains. Patient has also been running fevers. A CTA of the chest was performed on arrival here which revealed small pulmonary embolus in the right lower lobe segmental artery, multiple scattered foci of consolidation bilaterally throughout the lungs a broad differential diagnosis includes neoplastic process, it fevers septic emboli. Small and mildly enlarged right nodes. Hepatomegaly. Mildly dilated common bile duct. Splenomegaly. Chest x-ray shows multifocal pneumonia. EKG shows a sinus tachycardia with no acute changes. Blood pressure 96/68 with a heart rate in th e 60s, 100% on room air. White blood cell count 17.5, hemoglobin 10.3, platelet count 212. Sodium 125, potassium 3.0, BUN 15 and creatinine 0.7. Troponins are negative 3. BNP level 1930. Patient did have a temperature of 101.5 on arrival here. The cultures positive for gram-positive cocci in clusters. A consultation has been requested with infectious disease. Echocardiogram with Doppler study has been performed, results are yet pending. 02/15/2019 Patient's echocardiogram with Doppler study revealed a normal left ventricular systolic function, there is moderate tricuspid regurgitation with moderate sized mobile vegetation attached to the anterior tricuspid valve leaflet. Patient is definitely going through withdrawal today. Blood pressure 120/60 with a heart rate in the 70s, 98% on 2 L of oxygen. Parents are at bedside, patient has been advised that she'll need to undergo a transesophageal echocardiographic study tomorrow. The risks and the benefits were explained to the patient and her parents in detail, this will be performed tomorrow by Dr. Hatch. 02/17/2019 Patient did undergo a NASREEN yesterday by Dr. Rubin which revealed infective endocarditis involving the tricuspid valve with evidence of large vegetation measuring 1.5 cm involving the anterior tricuspid valve leaflet. There is severe tricuspid regurgitation. Small circumferential pericardial effusion is seen. The decision at this point in time is to stabilize the patient with antibiotics rather than surgery. Patient is complaining of some intermittent chest pain, pleuritic in nature. Likely secondary to the septic emboli. Blood pressure 122/70 with a heart rate of 60, 97% on room air. 02/18 2019 Patient was seen and examined this morning, continues to complain of a left- sided chest pain, sharp in nature, worsens with deep breathing. Hemodynamically she is stable. Continues to request more narcotics. Repeat chest x-ray was performed today which revealed mild congestive heart failure with pleural fluid worse than prior exam. 02/19/2019 Patient was seen and examined this morning, much more alert today overall. IV heparin a been discontinued and patient was initiated on Eliquis per PE protocol. Blood pressure 126/78 with a heart rate in the 80s, 94% on room air. White blood cell count 14.0, hemoglobin 10.3, platelet count 535. Sodium 138, potassium 4.1, BUN 9 and creatinine 0.5. 02/20/2019 She was seen and examined today, awake alert in no acute distress, resting comfortably, hemodynamically stable. Objective - Vital Signs Vital signs: Vital Signs Temp 98.8 F 02/20/19 12:00 Pulse 67 02/20/19 12:00 Resp 20 02/20/19 12:00 BP 124/77 02/20/19 12:00 Pulse Ox 96 02/20/19 12:00 Intake & Output 02/19/19 02/20/19 02/20/19 18:59 06:59 18:59 Intake Total 50 240 Balance 50 240 Weight 66.1 kg 66.1 kg Intake: Intake, IV Titration 50 Amount ceFAZolin 2 gm In Sodium 50 Chloride 0.9% 50 ml @ 100 mls/hr IVPB Q8H [facility] Rx#: [id number] Oral 240 Other: Voiding Method Toilet Toilet # Voids 1 1 - Exam PHYSICAL EXAMINATION: GENERAL: 43-year-old female anxious and fidgety today HEENT: Head is atraumatic, normocephalic. Pupils equal, round. Sclera anicteric. Conjunctiva are clear. Mucous membranes of the mouth are moist. Neck is supple. There is no elevated jugular venous pressure. No carotid bruit is heard. HEART EXAMINATION: Heart S1 S2 1 systolic murmur is heard. CHEST EXAMINATION: Lungs clear with improvement in air entry to the bases ABDOMEN: Soft, nontender. Bowel sounds are heard. No organomegaly noted. EXTREMITIES: 2+ peripheral pulses with no evidence of peripheral edema and no calf tenderness noted. NEUROLOGIC patient is awake, alert and oriented 3 . - Labs CBC & Chem 7: 02/20/19 05:21 02/20/19 05:21 Labs: Abnormal Lab Results - Last 24 Hours (Table) 02/20/19 02/20/19 Range/Units 05:21 05:21 WBC 12.4 H (3.8-10.6) k/uL RBC 3.69 L (3.80-5.40) m/uL Hgb 10.5 L (11.4-16.0) gm/dL Hct 32.3 L (34.0-46.0) % RDW 15.9 H (11.5-15.5) % Plt Count 587 H (150-450) k/uL Neutrophils # 9.5 H (1.3-7.7) k/uL Sodium 136 L (137-145) mmol/L Calcium 8.0 L (8.4-10.2) mg/dL Microbiology - Last 24 Hours (Table) 02/18/19 06:04 Blood Culture - Preliminary Blood No Growth after 48 hours 02/17/19 06:04 Blood Culture - Preliminary Blood No Growth after 72 hours Assessment and Plan Plan: Assessment and plan #1 atypical chest pain, not suggestive of acute coronary syndrome. Troponins negative 3. EKG shows a sinus tachycardia with no acute changes. #2 sepsis, temperature 101.5 on arrival, elevated white blood cell count, evidence of multifocal pneumonia on chest x-ray and CAT scan, evidence on CAT scan also of a pulmonary embolism and ossicle septic emboli, positive blood cultures #3 IV heroin drug use, current, over the past 3 years she states she uses up to 3 times daily #4 nicotine dependence #5 tricuspid valve endocarditis Plan From cardiology's perspective, we'll continue the patient on her current medi cations. The plan is for long-term IV antibiotics. Patient will be discharged to an [facility] for inpatient rehabilitation and discharge planning is in place. DNP note has been reviewed, I agree with a documented findings and plan of care. Patient was seen and examined.
[2019-02-20] MEDS: HYDROcodone/APAP 7.5-325MG 1 EACH TAB PO PRN ×2 (16:13→22:40)
[2019-02-20] MEDS: WARFARIN 5 MG TAB PO SCH (17:32)
[2019-02-20] MEDS: ENOXAPARIN 60 MG/0.6 ML SYRINGE SQ SCH (20:56)
--- NOTE | 2019-02-20 22:02 | P.PN ---
Subjective Progress Note Date: 02/20/19 43-year-old female who family relates is in a care home house at this time because of her heroin use. Is brought to the emergency center because of fevers chills and altered mental status. It is and the patient remains a poor historian and her family is able to relate that she's had great difficulties with her drug use. The mother relates that the current setting is supposed to discourage drug use, however it appears that she is actively still using heroin. At presentation because of her fever and chills workup was initiated which has included chest x-ray which shows evidence of multiple pneumonia. Computed tomography scan of the chest was performed because of pleuritic chest pain that verifies multifocal pneumonia as well as a pulmonary embolus. 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 With all these findings as well as the positive blood culture resulted in infectious diseases consultation. 02/15/2019 patient continues to have difficulties with her narcotic withdrawal is anxious and agitated. Clonidine was added hopefully with some mild improveme nt. Fever is showing some improvement. Work up is in progress with cardiology and a NASREEN has now been planned given her tricuspid valve endocarditis. 02/16/2019 NASREEN has been performed showing evidence of the extensive vegetation and the tricuspid valve regurgitation. The patient is mildly agitated but is quite sedated. No other acute difficulties are noted post procedure. 02/17/2019 patient is stable. Continues to complain of severe pain to her left chest. Receiving several pain medications but she remains discontent. We discussed her high opioid tolerance. Her shortness of breath is improved. She is updated on the outcome of her NASREEN, no plans for surgical intervention. Once her bacteremia clears will be able to determine the outpatient course. 02/20/2019 the patient is definitely improved from admission. She is awake and alert and interactive concerned about her plans will be at the time of her discharge. She continues to have some pleuritic chest pain related to her multiple septic pulmonary emboli and pulmonary embolism. No further fever or chills. She is eating well. No nausea or emesis. Objective - Vital Signs Vital signs: Vital Signs Temp 98.2 F 02/20/19 20:50 Pulse 66 02/20/19 20:50 Resp 18 02/20/19 20:50 BP 132/80 02/20/19 20:50 Pulse Ox 95 02/20/19 20:50 Intake & Output 02/20/19 02/20/19 02/21/19 06:59 18:59 06:59 Intake Total 420 Balance 420 Weight 66.1 kg 66.1 kg Intake: IV 80 ns@10 80 Intake, IV Titration 100 Amount ceFAZolin 2 gm In Sodium 100 Chloride 0.9% 50 ml @ 100 mls/hr IVPB Q8H [facility] Rx#: [id number] Oral 240 Other: Voiding Method Toilet # Voids 1 - Exam 43-year-old woman, kadeem HEENT: Anicteric conjunctiva are pink and moist nasal mucosa grossly intact without significant lesions, there is no thrush. Poor dentition Neck: The neck is supple without significant lymphadenopathy or thyromegaly. Lungs: Symmetrical air entry with wheezing throughout the lung avalos Aufranc bronchial sounds Heart: Regular rate and rhythm with an audible audible S1 and S2 soft S4 no significant murmur is noted Abdomen: Positive bowel sounds soft and nontender without palpable masses or organomegaly. There was no guarding or rebound. Extremities: The upper extremities have excellent pulses they are symmetric, no significant petechiae or telangiectasia. No splinter hemorrhages were noted. The lower extremities are free from significant edema. The peripheral pulses were 2+ and symmetric. Neuro: Arousable poor historian. But able to move all extremities. - Labs CBC & Chem 7: 02/20/19 05:21 02/20/19 05:21 Labs: Abnormal Lab Results - Last 24 Hours (Table) 02/20/19 02/20/19 Range/Units 05:21 05:21 WBC 12.4 H (3.8-10.6) k/uL RBC 3.69 L (3.80-5.40) m/uL Hgb 10.5 L (11.4-16.0) gm/dL Hct 32.3 L (34.0-46.0) % RDW 15.9 H (11.5-15.5) % Plt Count 587 H (150-450) k/uL Neutrophils # 9.5 H (1.3-7.7) k/uL Sodium 136 L (137-145) mmol/L Calcium 8.0 L (8.4-10.2) mg/dL Microbiology - Last 24 Hours (Table) 02/18/19 06:04 Blood Culture - Preliminary Blood No Growth after 48 hours 02/17/19 06:04 Blood Culture - Preliminary Blood No Growth after 72 hours Laboratory Results WBC 12.4 k/uL (3.8-10.6) H 02/20/19 05:21 RBC 3.69 m/uL (3.80-5.40) L 02/20/19 05:21 Hgb 10.5 gm/dL (11.4-16.0) L 02/20/19 05:21 Hct 32.3 % (34.0-46.0) L 02/20/19 05:21 MCV 87.6 fL (80.0-100.0) 02/20/19 05:21 MCH 28.4 pg (25.0-35.0) 02/20/19 05:21 MCHC 32.4 g/dL (31.0-37.0) 02/20/19 05:21 RDW 15.9 % (11.5-15.5) H 02/20/19 05:21 Plt Count 587 k/uL (150-450) H 02/20/19 05:21 Neutrophils % 76 % 02/20/19 05:21 Lymphocytes % 16 % 02/20/19 05:21 Monocytes % 5 % 02/20/19 05:21 Eosinophils % 2 % 02/20/19 05:21 Basophils % 0 % 02/20/19 05:21 Neutrophils # 9.5 k/uL (1.3-7.7) H 02/20/19 05:21 Lymphocytes # 1.9 k/uL (1.0-4.8) 02/20/19 05:21 Monocytes # 0.6 k/uL (0-1.0) 02/20/19 05:21 Eosinophils # 0.2 k/uL (0-0.7) 02/20/19 05:21 Basophils # 0.0 k/uL (0-0.2) 02/20/19 05:21 Anisocytosis Slight 02/19/19 07:21 ESR 66 mm/hr (0-20) H 02/17/19 06:55 PT 13.7 sec (9.0-12.0) H 02/13/19 20:34 INR 1.3 (<1.2) H 02/13/19 20:34 APTT 66.5 sec (22.0-30.0) H 02/18/19 08:05 Sodium 136 mmol/L (137-145) L 02/20/19 05:21 Potassium 4.3 mmol/L (3.5-5.1) 02/20/19 05:21 Chloride 104 mmol/L (98-107) 02/20/19 05:21 Carbon Dioxide 27 mmol/L (22-30) 02/20/19 05:21 Anion Gap 5 mmol/L 02/20/19 05:21 BUN 10 mg/dL (7-17) 02/20/19 05:21 Creatinine 0.53 mg/dL (0.52-1.04) 02/20/19 05:21 Est GFR (CKD-EPI)AfAm >90 (>60 ml/min/1.73 sqM) 02/20/19 05:21 Est GFR (CKD-EPI)NonAf >90 (>60 ml/min/1.73 sqM) 02/20/19 05:21 Glucose 91 mg/dL (74-99) 02/20/19 05:21 Plasma Lactic Acid Sven 1.0 mmol/L (0.7-2.0) 02/13/19 20:34 Calcium 8.0 mg/dL (8.4-10.2) L 02/20/19 05:21 Magnesium 1.9 mg/dL (1.6-2.3) 02/15/19 07:00 Total Bilirubin 0.7 mg/dL (0.2-1.3) 02/13/19 20:34 AST 27 U/L (14-36) 02/13/19 20:34 ALT 15 U/L (9-52) 02/13/19 20:34 Alkaline Phosphatase 76 U/L (38-126) 02/13/19 20:34 Troponin I <0.012 ng/mL (0.000-0.034) 02/14/19 08:11 NT-Pro-B Natriuret Pep 2650 pg/mL 02/18/19 17:01 Total Protein 5.9 g/dL (6.3-8.2) L 02/13/19 20:34 Albumin 2.5 g/dL (3.5-5.0) L 02/13/19 20:34 Urine Color Yellow 02/13/19 21:17 Urine Appearance Cloudy (Clear) H 02/13/19 21:17 Urine pH 8.0 (5.0-8.0) 02/13/19 21:17 Ur Specific [place] 1.021 (1.001-1.035) 02/13/19 21:17 Urine Protein 2+ (Negative) H 02/13/19 21:17 Urine Glucose (UA) Negative (Negative) 02/13/19 21:17 Urine Ketones Negative (Negative) 02/13/19 21:17 Urine Blood Negative (Negative) 02/13/19 21:17 Urine Nitrite Negative (Negative) 02/13/19 21:17 Urine Bilirubin Negative (Negative) 02/13/19 21:17 Urine Urobilinogen >12.0 mg/dL (<2.0) 02/13/19 21:17 Ur Leukocyte Esterase Large (Negative) H 02/13/19 21:17 Urine RBC 8 /hpf (0-5) H 02/13/19 21:17 Urine WBC 47 /hpf (0-5) H 02/13/19 21:17 Ur Squamous Epith Cells 8 /hpf (0-4) H 02/13/19 21:17 Urine Bacteria Moderate /hpf (None) H 02/13/19 21:17 Hyaline Casts 1 /lpf (0-2) 02/13/19 21:17 Urine HCG, Qual Not Detected (Not Detectd) 02/13/19 21:17 Hepatitis A IgM Ab Non-Reactive (Non-Reactive) 02/15/19 07:00 Hep Bs Antigen Non-Reactive (Non-Reactive) 02/15/19 07:00 Hep B Core IgM Ab Non-Reactive (Non-Reactive) 02/15/19 07:00 Hep C IgG Ab Reactive (Non-Reactive) H 02/15/19 07:00 HIV-1 Antibody Non-Reactive (Non-Reactive) 02/15/19 07:00 HIV Ag/Ab Interpret 02/15/19 07:00 HIV p24 Antibody Non-Reactive (Non-Reactive) 02/15/19 07:00 HIV-2 Antibody Non-Reactive (Non-Reactive) 02/15/19 07:00 HIV P24 Antigen Non-Reactive (Non-Reactive) 02/15/19 07:00 Microbiology 02/18/19 06:04 Blood Blood Culture - Preliminary No Growth after 48 hours 02/17/19 06:04 Blood Blood Culture - Preliminary No Growth after 72 hours 02/15/19 07:00 Blood Blood Culture Gram Stain - Final 02/15/19 07:00 Blood Blood Culture - Final Staphylococcus aureus 02/13/19 21:21 Blood Blood Culture Gram Stain - Final 02/13/19 21:21 Blood Blood Culture - Final Staphylococcus aureus 02/15/19 07:00 Blood Blood Culture - Final 02/13/19 21:17 Urine,Voided Urine Culture - Final 02/13/19 21:21 Blood Blood Culture - Final Assessment and Plan (1) Intravenous drug abuse Current Visit: Yes Status: Acute Code(s): F19.10 - OTHER PSYCHOACTIVE SUBSTANCE ABUSE, UNCOMPLICATED SNOMED Code(s): 149747790 (2) Endocarditis of tricuspid valve Narrative/Plan: 43-year-old female who has history of active injection drug use with heroin presents to Hospital of feeling poorly with fevers chills altered mental status. Echocardiogram has revealed evidence of the tricuspid valve endocarditis without valvular dysfunction or destruction. If this point in time antibiotic therapy is altered to Ancef and high dose of 2 g IV piggyback every 8 hours. This will be continued while she is in hospital. First challenge will be to determine course of antibiotic the time of her discharge. May require utilizing once weekly intravenous antibiotic therapy at the infusion clinic. Will not be a candidate for daily IV antibiotic therapy. Follow blood cultures requested HIV and hepatitis testing are requested Beta hCG was negative Smoking cessation is advised. Family is updated to her current status. 02/15/2019 patient remains agitated. However she is hemodynamically stable. Clonidine was added to try to help with her withdrawal symptoms. She is not hypotensive. Intravenous antibiotic therapy is with Ancef 2 g IV piggyback every 8 hours. His been discussed with the family she will not be a candidate for outpatient intravenous antibiotic therapy and will definitely have to have other plans at discharge. Cardiology is planned a NASREEN to further evaluate her tricuspid valve endocarditis. HIV is negative positive for hepatitis C which will need follow-up in the outpatient setting. 02/16/2019 the patient has undergone NASREEN and evidence of the extensive vegetation on the tricuspid valve is noted with significant tricuspid regurgitation. Blood cultures remain positive which we still with MSSA. HIV is negative hepatitis C positive which will have follow-up in the outpatient setting Cardiology is following status post the NASREEN and await their plans as far as any need for surgical evaluation given the large vegetation was seen. Follow-up blood cultures requested 02/17/2019 that we'll change the patient's status in that she still with signif icant pain to the left chest mostly. Generalized discomforts are occurring related to her narcotic withdrawal. Blood cultures remain positive related to her tricuspid valve endocarditis. It is not unusual to take up to 7 days to clear bacteremia related to this type of infection. Continue the high-dose Ancef. As has noted she will not be a candidate for port placement will need to have a alternative plan for her outpatient antibiotic therapy at discharge. 02/20/2019 the patient is having some improvement of her status. There is evidence now of some negative blood culture showing evidence of response to the high-dose of cefazolin. Attempt arrangements in the outpatient setting with dalbavancin which is a once a week IV infusion. She is not a candidate for any type of more permanent IV access given her active injection drug use admission and not going to re- habilitation for drug use. If however she goes to an extended care facility and IV access can be placed to continue her current course of Ancef. The facility will be responsible for the patient. And she has been instructed that if she does have a PICC line or similar placed she cannot use it for anything other than sterile fluid in her antibiotics. If she injects with any other substance result in her .working with case management and pharmacy. Current Visit: Yes Status: Acute Code(s): I36.8 - OTHER NONRHEUMATIC TRICUSPID VALVE DISORDERS SNOMED Code(s): 62372720 (3) MSSA bacteremia Current Visit: Yes Status: Acute Code(s): R78.81 - BACTEREMIA SNOMED Code(s): 909801527 (4) Multifocal pneumonia Current Visit: Yes Status: Acute Code(s): J18.9 - PNEUMONIA, UNSPECIFIED ORGANISM SNOMED Code(s): 247415793
--- NOTE | 2019-02-20 22:45 | P.PN ---
Subjective Progress Note Date: 02/20/19 Principal diagnosis: This is a 43-year-old female with a past medical history of multiple medical problems who was admitted with an elevated white blood count hyponatremia and hypokalemia. A CTA was done showing a small pulmonary embolism in the right lower segmental artery and multiple scattered foci of consolidation airspace disease bilaterally with small cavitary appearance indicating possible septic emboli as being closely monitored. Pulmonary and cardiology are following. Patient is lying in bed in mild acute distress stating she is having side pain with father at the bedside. Patient is asking for more Dilaudid stating that the pain is severe. Patient denies any shortness of breath or chest pain at this time. Patient is twisting back and forth in bed stating that the site pain is severe. Patient denies any nausea or vomiting at this time. Patient is afebrile. Patient does have a history of polysubstance abuse and is having active withdrawals. Patient is to undergo a NASREEN in the morning. Patient is currently still on IV heparin drip. Guarded prognosis REVIEW OF SYSTEMS: ENT: No diminished vision or hearing. CARDIOVASCULAR: Mentioned earlier. RESPIRATORY: As mentioned earlier. GI: No nauscea, vomiting or diarrhea. : No dysuria or retention. NERVOUS SYSTEM: No numbness or weakness. ALLERGY/IMMUNOLOGY: No asthma or hay fever. MUSCULOSKELETAL: As mentioned earlier. HEMATOLOGY/ONCOLOGY: No history of anemia. ENDOCRINE: No history of diabetes or hypothyroidism. CONSTITUTIONAL: As mentioned earlier. DERMATOLOGY: Negative. PSYCHIATRY: Mentioned earlier. RHEUMATOLOGY: Negative. Active Medications Albuterol/Ipratropium (Duoneb 0.5 Mg-3 Mg/3 Ml Soln) 3 ml INHALATION RT-Q4H PRN PRN Reason: shortness of breath Clonidine (Catapres) 0.1 mg PO TID [facility] Last Admin: 02/15/19 15:34 Dose: 0.1 mg Documented by: Heparin Sodium (Porcine) (Heparin) 0 unit IV PER PROTOCOL PRN; Protocol PRN Reason: Low PTT Hydromorphone HCl (Dilaudid) 1 mg IVP Q4H PRN PRN Reason: Pain Last Admin: 02/15/19 13:08 Dose: 1 mg Documented by: Heparin Sodium/Sodium Chloride (25,000 unit/ Sodium Chloride) 250 mls @ 11.022 mls/hr IV .[id number] [facility]; Protocol Last Admin: 02/15/19 15:35 Dose: 26.53 units/kg/hr, 16.247 mls/hr Documented by: Cefazolin Sodium 2 gm/ Sodium (Chloride) 50 mls @ 100 mls/hr IVPB Q8H [facility] Last Admin: 02/15/19 13:06 Dose: 100 mls/hr Documented by: Lorazepam (Ativan) 0.5 mg IV Q4HR PRN PRN Reason: Anxiety Last Admin: 02/15/19 15:22 Dose: 0.5 mg Documented by: Miscellaneous Information (Magnesium Per Protocol) 1 each MISCELLANE DAILY PRN; Protocol PRN Reason: Per Protocol Miscellaneous Information (Potassium Per Protocol) 1 each MISCELLANE DAILY PRN; Protocol PRN Reason: Per Protocol Nicotine (Habitrol 21mg/24hr Patch) 1 patch TRANSDERM DAILY [facility] Last Admin: 02/15/19 09:22 Dose: 1 patch Documented by: Ondansetron HCl (Zofran) 8 mg IVP Q8H PRN PRN Reason: Nausea Pantoprazole Sodium (Protonix) 40 mg IV DAILY [facility] Last Admin: 02/15/19 09:26 Dose: 40 mg Documented by: 02/16/2019 Patient underwent a NASREEN this morning showing extensive vegetation and tricuspid valve regurgitation. Patient is currently on IV antibiotic therapy for e ndocarditis and may require outpatient antibiotic therapy. Infectious disease is following closely and coordinating care for IV therapy once discharged for weekly therapy at the clinic due to polysubstance and IV drug use history and risk of using the midline or PICC for IV access of illicit drug use. Parents are at the bedside and are aware of the treatment plan and agree to close monitoring. Hematology/Oncology was consulted for continued anticoagulation therapy recommendations. Patient is currently still on IV heparin and may be switched to oral once procedures are done and insurance coverage is verified. Patient denies any shortness of breath, chest pain, or palpitations. Patient is afebrile. Patient is still having a lot of generalized pain and requesting an increase in pain medication. Patient's withdrawal symptoms have lessened but are still present. Patient is up and walking to the bathroom with no difficulty. 02/19/2019 Patient is sitting up in bed in no acute distress and is pleasant this afternoon. Patient is awake and alert moreso than yesterday. Patient is attempting to straighten her hair as she states it has been a mess for the last 3 days. Mother is at the bedside. Patient is currently still on IV antibiotics per infectious disease and is being closely monitored. Patient has transitioned to oral anticoagulation. Patient denies any chest pain, shortness of breath or palpitations at this time. Patient denies any nausea or vomiting and tolerating diet well. Patient is afebrile. Patient is still limited visitation per parents request due to history of drug abuse and they are in fear of some of her friends bringing illicit drugs into the hospital. Guarded prognosis. 02/20/2019 Patient is sitting up at the side of the bed resting but easily arousable. Jaiden banda is alert and able to conversate more each day. Patient is currently awaiting discharge plans for possible once a week IV therapy at the [facility] with [place] per infectious disease as her parents have agreed to provide transportation here to ensure she receives her antibiotic therapy or possible down at a facility in [place] and at that time could receive a PICC line for continued antibiotic therapy. Given her recent past history of IV drug abuse, the [facility] will most likely be the optimal choice for a plan of action. Patient is agreeable to this. Patient currently has no insurance at this time. Case management and social work are following closely. Patient was also transi tioned from IV heparin to Eliquis, but due to the fact that patient has no insurance the cost would not be manageable at this time. We are discontinuing the Eliquis and starting Lovenox 60 mg BID with a bridge to Coumadin 5 mg daily. Patient is to have her PTINR checked in 5 days. Coumadin is relatively cheap and the patient may likely be more compliant of taking this medication. Patient denies any shortness of breath, chest pain, or palpitations at this time. Patient states that she has generalized pain. Patient is tolerating regular diet and denies any nausea or vomiting. Patient's gait is steady. Guarded prognosis. Objective - Vital Signs Vital signs: Vital Signs Temp 98.2 F 02/20/19 20:50 Pulse 66 02/20/19 20:50 Resp 18 02/20/19 20:50 BP 132/80 02/20/19 20:50 Pulse Ox 95 02/20/19 20:50 Intake & Output 02/20/19 02/20/19 02/21/19 06:59 18:59 06:59 Intake Total 420 Balance 420 Weight 66.1 kg 66.1 kg Intake: IV 80 ns@10 80 Intake, IV Titration 100 Amount ceFAZolin 2 gm In Sodium 100 Chloride 0.9% 50 ml @ 100 mls/hr IVPB Q8H [facility] Rx#: [id number] Oral 240 Other: Voiding Method Toilet # Voids 1 - Exam Gen: This is a 43-year-old female sitting up in bed in no acute distress. Vital signs are stable. Temp is 98.6, pulse is 63, respirations 20, blood pressure 126/82, oxygen saturation is 95% on room air. HEENT: Head is atraumatic, normocephalic. Pupils equal, round. Sclerae is anicteric. NECK: Supple. No JVD. No lymphadenopathy. No thyromegaly. LUNGS: Diminished in the bases with a few scattered rhonchi and crackles noted. No intercostal retractions. HEART: S1 and S2 are muffled with an ejection systolic murmur. ABDOMEN: Soft. Bowel sounds are present. No masses. No tenderness. EXTREMITIES: No pedal edema. No calf tenderness. NEUROLOGICAL: Patient is awake, alert and oriented x3. Cranial nerves 2 through 12 are grossly intact. Gait is steady - Labs CBC & Chem 7: 02/20/19 05:21 02/20/19 05:21 Labs: Abnormal Lab Results - Last 24 Hours (Table) 02/20/19 02/20/19 Range/Units 05:21 05:21 WBC 12.4 H (3.8-10.6) k/uL RBC 3.69 L (3.80-5.40) m/uL Hgb 10.5 L (11.4-16.0) gm/dL Hct 32.3 L (34.0-46.0) % RDW 15.9 H (11.5-15.5) % Plt Count 587 H (150-450) k/uL Neutrophils # 9.5 H (1.3-7.7) k/uL Sodium 136 L (137-145) mmol/L Calcium 8.0 L (8.4-10.2) mg/dL Microbiology - Last 24 Hours (Table) 02/18/19 06:04 Blood Culture - Preliminary Blood No Growth after 48 hours 02/17/19 06:04 Blood Culture - Preliminary Blood No Growth after 72 hours Assessment and Plan Assessment: Bilateral pneumonia, possibly septic emboli secondary to infective endocarditis present on admission with possible sepsis present on admission Infective endocarditis with tricuspid valve vegetations, subacute with possible sepsis, present on admission with MSSA possible acute pulmonary embolism History of IV drug abuse Hyponatremia Hypokalemia Anemia of chronic disease Possible urinary tract infection History of back pain History of hepatitis C History of nicotine dependence Polysubstance abuse Recommendations and discussion This is a 43-year-old woman who has multiple complex medical issues and will be monitored closely. Recommend continue current medications, management, and symptomatic treatment. The patient will continue on broad-spectrum IV antibiotics per infectious disease recommendations. Cardiology, pulmonary, and ID is following the patient closely. Patient is now on oral anticoagulation as well as lovenox with a bridge to coumadin as the patient has no insurance and unable to afford Eliquis. Pain medication has been decreased to oral as well as the Ativan has been discontinued as the patient is not actively withdrawing at this time. Prognosis is extremely guarded. Further recommendations to follow. Possible discharge in 24-48 hours pending authorization of outpatient antibiotic therapy at the [facility].
[2019-02-21] MEDS: HYDROcodone/APAP 7.5-325MG 1 EACH TAB PO PRN ×3 (05:10→17:51)
[2019-02-21] MEDS: PANTOPRAZOLE 40 MG TABLET PO SCH (06:15)
[2019-02-21 06:31] LABS: Basophils # (A) 0.1 k/uL (0-0.2); Basophils % (A) 1 %; Eosinophils # (A) 0.2 k/uL (0-0.7); Eosinophils % (A) 2 %; HCT 33.6 % (34.0-46.0); HGB 10.6 gm/dL (11.4-16.0); Hypochromasia Slight; Lymphocytes # (A) 1.9 k/uL (1.0-4.8); Lymphocytes % (A) 19 %; MCH 27.9 pg (25.0-35.0); MCHC 31.7 g/dL (31.0-37.0); MCV 88.2 fL (80.0-100.0); Monocytes # (A) 0.4 k/uL (0-1.0); Monocytes % (A) 4 %; Neutrophils # (A) 7.1 k/uL (1.3-7.7); Neutrophils % (A) 72 %; Platelet Count 614 k/uL (150-450); RBC 3.81 m/uL (3.80-5.40); RDW 15.9 % (11.5-15.5); WBC 9.8 k/uL (3.8-10.6)
[2019-02-21 06:48] LABS: African American GFR (CKD) >90 (>60 ml/min/1.73 sqM); Anion Gap 5 mmol/L; Blood Urea Nitrogen 12 mg/dL (7-17); Calcium 8.2 mg/dL (8.4-10.2); Carbon Dioxide 26 mmol/L (22-30); Chloride 108 mmol/L (98-107); Glucose 99 mg/dL (74-99); Potassium 4.2 mmol/L (3.5-5.1); Sodium 139 mmol/L (137-145)
[2019-02-21] MEDS: IBUPROFEN 200 MG TAB PO PRN (09:25)
[2019-02-21] MEDS: cloNIDine HCL 0.1 MG TAB PO SCH ×3 (09:25→21:56)
[2019-02-21] MEDS: ENOXAPARIN 60 MG/0.6 ML SYRINGE SQ SCH ×2 (09:26→20:06)
[2019-02-21] MEDS: NICOTINE 21MG/24HR PATCH TRANSDERM SCH (09:27)
[2019-02-21] MEDS: SIMETHICONE 80 MG CHEWABLE PO SCH ×2 (09:27→20:06)
--- NOTE | 2019-02-21 15:11 | P.PN ---
Subjective Progress Note Date: 02/21/19 This is a 43-year-old patient with no prior documented history of hypertension, nondiabetic, no hyperlipidemia, she does smoke cigarettes, and uses heroin IV. She states that she's been a heroin user for the past 2 years, prior to that she was a user of prescription drugs. She presents to the hospital on this occasion with symptoms of chest pain which she describes as a pressure sensation with associated sharp pains. Patient has also been running fevers. A CTA of the chest was performed on arrival here which revealed small pulmonary embolus in the right lower lobe segmental artery, multiple scattered foci of consolidation bilaterally throughout the lungs a broad differential diagnosis includes neoplastic process, it fevers septic emboli. Small and mildly enlarged right nodes. Hepatomegaly. Mildly dilated common bile duct. Splenomegaly. Chest x-ray shows multifocal pneumonia. EKG shows a sinus tachycardia with no acute changes. Blood pressure 96/68 with a heart rate in th e 60s, 100% on room air. White blood cell count 17.5, hemoglobin 10.3, platelet count 212. Sodium 125, potassium 3.0, BUN 15 and creatinine 0.7. Troponins are negative 3. BNP level 1930. Patient did have a temperature of 101.5 on arrival here. The cultures positive for gram-positive cocci in clusters. A consultation has been requested with infectious disease. Echocardiogram with Doppler study has been performed, results are yet pending. 02/15/2019 Patient's echocardiogram with Doppler study revealed a normal left ventricular systolic function, there is moderate tricuspid regurgitation with moderate sized mobile vegetation attached to the anterior tricuspid valve leaflet. Patient is definitely going through withdrawal today. Blood pressure 120/60 with a heart rate in the 70s, 98% on 2 L of oxygen. Parents are at bedside, patient has been advised that she'll need to undergo a transesophageal echocardiographic study tomorrow. The risks and the benefits were explained to the patient and her parents in detail, this will be performed tomorrow by Dr. Hatch. 02/17/2019 Patient did undergo a NASREEN yesterday by Dr. Rubin which revealed infective endocarditis involving the tricuspid valve with evidence of large vegetation measuring 1.5 cm involving the anterior tricuspid valve leaflet. There is severe tricuspid regurgitation. Small circumferential pericardial effusion is seen. The decision at this point in time is to stabilize the patient with antibiotics rather than surgery. Patient is complaining of some intermittent chest pain, pleuritic in nature. Likely secondary to the septic emboli. Blood pressure 122/70 with a heart rate of 60, 97% on room air. 02/18 2019 Patient was seen and examined this morning, continues to complain of a left- sided chest pain, sharp in nature, worsens with deep breathing. Hemodynamically she is stable. Continues to request more narcotics. Repeat chest x-ray was performed today which revealed mild congestive heart failure with pleural fluid worse than prior exam. 02/19/2019 Patient was seen and examined this morning, much more alert today overall. IV heparin a been discontinued and patient was initiated on Eliquis per PE protocol. Blood pressure 126/78 with a heart rate in the 80s, 94% on room air. White blood cell count 14.0, hemoglobin 10.3, platelet count 535. Sodium 138, potassium 4.1, BUN 9 and creatinine 0.5. 02/20/2019 She was seen and examined today, awake alert in no acute distress, resting comfortably, hemodynamically stable. 02/21/2019 Patient seen and examined this morning, mother at bedside. Eating lunch, overall feeling well, eager to be discharged home. From cardiology's perspective she has remained hemodynamically stable, when she is cleared by infectious disease and primary she may be able to be discharged home. We recommend a follow-up appointment with Dr. Hatch in the office post discharge in 6 weeks' time we will repeat a NASREEN. Objective - Vital Signs Vital signs: Vital Signs Temp 98.1 F 02/21/19 05:12 Pulse 58 L 02/21/19 05:12 Resp 18 02/21/19 05:12 BP 150/89 02/21/19 05:12 Pulse Ox 97 02/21/19 05:12 Intake & Output 02/20/19 02/21/19 02/21/19 18:59 06:59 18:59 Intake Total 420 50 480 Balance 420 50 480 Weight 66.1 kg 64.7 kg Intake: IV 80 ns@10 80 Intake, IV Titration 100 50 Amount ceFAZolin 2 gm In Sodium 100 50 Chloride 0.9% 50 ml @ 100 mls/hr IVPB Q8H [facility] Rx#: [id number] Oral 240 480 Other: # Voids 1 2 - Exam PHYSICAL EXAMINATION: GENERAL: 43-year-old female anxious and fidgety today HEENT: Head is atraumatic, normocephalic. Pupils equal, round. Sclera anicteric. Conjunctiva are clear. Mucous membranes of the mouth are moist. Neck is supple. There is no elevated jugular venous pressure. No carotid bruit is heard. HEART EXAMINATION: Heart S1 S2 1 systolic murmur is heard. CHEST EXAMINATION: Lungs clear with improvement in air entry to the bases ABDOMEN: Soft, nontender. Bowel sounds are heard. No organomegaly noted. EXTREMITIES: 2+ peripheral pulses with no evidence of peripheral edema and no calf tenderness noted. NEUROLOGIC patient is awake, alert and oriented 3 . - Labs CBC & Chem 7: 02/21/19 06:19 02/21/19 06:19 Labs: Abnormal Lab Results - Last 24 Hours (Table) 02/21/19 02/21/19 Range/Units : 06:19 Hgb 10.6 L (11.4-16.0) gm/dL Hct 33.6 L (34.0-46.0) % RDW 15.9 H (11.5-15.5) % Plt Count 614 H (150-450) k/uL Chloride 108 H (98-107) mmol/L Calcium 8.2 L (8.4-10.2) mg/dL Microbiology - Last 24 Hours (Table) 02/18/19 06:04 Blood Culture - Preliminary Blood No Growth after 72 hours 02/17/19 06:04 Blood Culture - Preliminary Blood No Growth after 96 hours Assessment and Plan Plan: Assessment and plan #1 atypical chest pain, not suggestive of acute coronary syndrome. Troponins negative 3. EKG shows a sinus tachycardia with no acute changes. #2 sepsis, temperature 101.5 on arrival, elevated white blood cell count, evidence of multifocal pneumonia on chest x-ray and CAT scan, evidence on CAT scan also of a pulmonary embolism and ossicle septic emboli, positive blood cultures #3 IV heroin drug use, current, over the past 3 years she states she uses up to 3 times daily #4 nicotine dependence #5 tricuspid valve endocarditis Plan From cardiology's perspective, we'll continue the patient on her current medications. The plan is for long-term IV antibiotics. Follow-up with Dr. Hatch in the office post discharge, repeat NASREEN as an outpatient in 6 weeks. DNP note has been reviewed, I agree with a documented findings and plan of care. Patient was seen and examined.
[2019-02-21 16:21] LABS: Iron Saturation 11.69 (12.00-45.00)
--- NOTE | 2019-02-21 16:42 | P.PN ---
Subjective Progress Note Date: 02/21/19 Principal diagnosis: This is a 43-year-old female with a past medical history of multiple medical problems who was admitted with an elevated white blood count hyponatremia and hypokalemia. A CTA was done showing a small pulmonary embolism in the right lower segmental artery and multiple scattered foci of consolidation airspace disease bilaterally with small cavitary appearance indicating possible septic emboli as being closely monitored. Pulmonary and cardiology are following. Patient is lying in bed in mild acute distress stating she is having side pain with father at the bedside. Patient is asking for more Dilaudid stating that the pain is severe. Patient denies any shortness of breath or chest pain at this time. Patient is twisting back and forth in bed stating that the site pain is severe. Patient denies any nausea or vomiting at this time. Patient is afebrile. Patient does have a history of polysubstance abuse and is having active withdrawals. Patient is to undergo a NASREEN in the morning. Patient is currently still on IV heparin drip. Guarded prognosis REVIEW OF SYSTEMS: ENT: No diminished vision or hearing. CARDIOVASCULAR: Mentioned earlier. RESPIRATORY: As mentioned earlier. GI: No nauscea, vomiting or diarrhea. : No dysuria or retention. NERVOUS SYSTEM: No numbness or weakness. ALLERGY/IMMUNOLOGY: No asthma or hay fever. MUSCULOSKELETAL: As mentioned earlier. HEMATOLOGY/ONCOLOGY: No history of anemia. ENDOCRINE: No history of diabetes or hypothyroidism. CONSTITUTIONAL: As mentioned earlier. DERMATOLOGY: Negative. PSYCHIATRY: Mentioned earlier. RHEUMATOLOGY: Negative. Active Medications Albuterol/Ipratropium (Duoneb 0.5 Mg-3 Mg/3 Ml Soln) 3 ml INHALATION RT-Q4H PRN PRN Reason: shortness of breath Clonidine (Catapres) 0.1 mg PO TID [facility] Last Admin: 02/15/19 15:34 Dose: 0.1 mg Documented by: Heparin Sodium (Porcine) (Heparin) 0 unit IV PER PROTOCOL PRN; Protocol PRN Reason: Low PTT Hydromorphone HCl (Dilaudid) 1 mg IVP Q4H PRN PRN Reason: Pain Last Admin: 02/15/19 13:08 Dose: 1 mg Documented by: Heparin Sodium/Sodium Chloride (25,000 unit/ Sodium Chloride) 250 mls @ 11.022 mls/hr IV .[id number] [facility]; Protocol Last Admin: 02/15/19 15:35 Dose: 26.53 units/kg/hr, 16.247 mls/hr Documented by: Cefazolin Sodium 2 gm/ Sodium (Chloride) 50 mls @ 100 mls/hr IVPB Q8H [facility] Last Admin: 02/15/19 13:06 Dose: 100 mls/hr Documented by: Lorazepam (Ativan) 0.5 mg IV Q4HR PRN PRN Reason: Anxiety Last Admin: 02/15/19 15:22 Dose: 0.5 mg Documented by: Miscellaneous Information (Magnesium Per Protocol) 1 each MISCELLANE DAILY PRN; Protocol PRN Reason: Per Protocol Miscellaneous Information (Potassium Per Protocol) 1 each MISCELLANE DAILY PRN; Protocol PRN Reason: Per Protocol Nicotine (Habitrol 21mg/24hr Patch) 1 patch TRANSDERM DAILY [facility] Last Admin: 02/15/19 09:22 Dose: 1 patch Documented by: Ondansetron HCl (Zofran) 8 mg IVP Q8H PRN PRN Reason: Nausea Pantoprazole Sodium (Protonix) 40 mg IV DAILY [facility] Last Admin: 02/15/19 09:26 Dose: 40 mg Documented by: 02/16/2019 Patient underwent a NASREEN this morning showing extensive vegetation and tricuspid valve regurgitation. Patient is currently on IV antibiotic therapy for e ndocarditis and may require outpatient antibiotic therapy. Infectious disease is following closely and coordinating care for IV therapy once discharged for weekly therapy at the clinic due to polysubstance and IV drug use history and risk of using the midline or PICC for IV access of illicit drug use. Parents are at the bedside and are aware of the treatment plan and agree to close monitoring. Hematology/Oncology was consulted for continued anticoagulation therapy recommendations. Patient is currently still on IV heparin and may be switched to oral once procedures are done and insurance coverage is verified. Patient denies any shortness of breath, chest pain, or palpitations. Patient is afebrile. Patient is still having a lot of generalized pain and requesting an increase in pain medication. Patient's withdrawal symptoms have lessened but are still present. Patient is up and walking to the bathroom with no difficulty. 02/19/2019 Patient is sitting up in bed in no acute distress and is pleasant this afternoon. Patient is awake and alert moreso than yesterday. Patient is attempting to straighten her hair as she states it has been a mess for the last 3 days. Mother is at the bedside. Patient is currently still on IV antibiotics per infectious disease and is being closely monitored. Patient has transitioned to oral anticoagulation. Patient denies any chest pain, shortness of breath or palpitations at this time. Patient denies any nausea or vomiting and tolerating diet well. Patient is afebrile. Patient is still limited visitation per parents request due to history of drug abuse and they are in fear of some of her friends bringing illicit drugs into the hospital. Guarded prognosis. 02/20/2019 Patient is sitting up at the side of the bed resting but easily arousable. Jaiden banda is alert and able to conversate more each day. Patient is currently awaiting discharge plans for possible once a week IV therapy at the [facility] with Dalbavancin per infectious disease as her parents have agreed to provide transportation here to ensure she receives her antibiotic therapy or possible down at a facility in [place] and at that time could receive a PICC line for continued antibiotic therapy. Given her recent past history of IV drug abuse, the [facility] will most likely be the optimal choice for a plan of action. Patient is agreeable to this. Patient currently has no insurance at this time. Case management and social work are following closely. Patient was also transi tioned from IV heparin to Eliquis, but due to the fact that patient has no insurance the cost would not be manageable at this time. We are discontinuing the Eliquis and starting Lovenox 60 mg BID with a bridge to Coumadin 5 mg daily. Patient is to have her PTINR checked in 5 days. Coumadin is relatively cheap and the patient may likely be more compliant of taking this medication. Patient denies any shortness of breath, chest pain, or palpitations at this time. Patient states that she has generalized pain. Patient is tolerating regular diet and denies any nausea or vomiting. Patient's gait is steady. Guarded prognosis. 02/21/2019. Patient is sitting up near the window in no acute distress. Gait is steady. Patient is on room air. Patient denies any chest pain, shortness of breath, or palpitations at this time. Patient is afebrile. Patient denies any nausea or vomiting. Patient is tolerating diet. Patient is currently awaiting authorization with pharmacy to approve antibiotics that were recommended by infectious disease. Guarded prognosis. We'll continue to follow closely. Objective - Vital Signs Vital signs: Vital Signs Temp 98.5 F 02/21/19 11:40 Pulse 54 L 02/21/19 11:40 Resp 16 02/21/19 11:40 BP 134/80 02/21/19 11:40 Pulse Ox 97 02/21/19 11:40 Intake & Output 02/20/19 02/21/19 02/21/19 18:59 06:59 18:59 Intake Total 420 50 480 Balance 420 50 480 Weight 66.1 kg 64.7 kg Intake: IV 80 ns@10 80 Intake, IV Titration 100 50 Amount ceFAZolin 2 gm In Sodium 100 50 Chloride 0.9% 50 ml @ 100 mls/hr IVPB Q8H [facility] Rx#: [id number] Oral 240 480 Other: Voiding Method Toilet # Voids 1 2 - Exam Gen: This is a 43-year-old female sitting up in bed in no acute distress. Vital signs are stable. HEENT: Head is atraumatic, normocephalic. Pupils equal, round. Sclerae is anicteric. NECK: Supple. No JVD. No lymphadenopathy. No thyromegaly. LUNGS: Diminished in the bases with a few scattered rhonchi noted. No intercostal retractions. HEART: S1 and S2 are muffled with an ejection systolic murmur. ABDOMEN: Soft. Bowel sounds are present. No masses. No tenderness. EXTREMITIES: No pedal edema. No calf tenderness. NEUROLOGICAL: Patient is awake, alert and oriented x3. Cranial nerves 2 through 12 are grossly intact. Gait is steady - Labs CBC & Chem 7: 02/21/19 06:19 02/21/19 06:19 Labs: Abnormal Lab Results - Last 24 Hours (Table) 02/21/19 02/21/19 02/21/19 Range/Units 06:19 06: 06:19 Hgb 10.6 L (11.4-16.0) gm/dL Hct 33.6 L (34.0-46.0) % RDW 15.9 H (11.5-15.5) % Plt Count 614 H (150-450) k/uL Chloride 108 H (98-107) mmol/L Calcium 8.2 L (8.4-10.2) mg/dL Iron 29 L (50-170) ug/dL Iron Saturation 11.69 L (12.00-45.00) Microbiology - Last 24 Hours (Table) 02/18/19 06:04 Blood Culture - Preliminary Blood No Growth after 72 hours 02/17/19 06:04 Blood Culture - Preliminary Blood No Growth after 96 hours Assessment and Plan Assessment: Bilateral pneumonia, possibly septic emboli secondary to infective endocarditis present on admission with possible sepsis present on admission Infective endocarditis with tricuspid valve vegetations, subacute with possible sepsis, present on admission with MSSA possible acute pulmonary embolism History of IV drug abuse Hyponatremia Hypokalemia Anemia of chronic disease Possible urinary tract infection History of back pain History of hepatitis C History of nicotine dependence Polysubstance abuse Anticoagulation: Currently on Lovenox injections with a bridge to Coumadin. Will check PT/INR in the morning. Recommendations and discussion This is a 43-year-old woman who has multiple complex medical issues and will be monitored closely. Recommend continue current medications, management, and symptomatic treatment. The patient will continue on broad-spectrum IV antibiotics per infectious disease recommendations. Cardiology, pulmonary, and ID is following the patient closely. Prognosis is extremely guarded. Further recommendations to follow. Possible discharge in 24-48 hours pending authorization of outpatient antibiotic therapy at the [facility].
--- NOTE | 2019-02-21 16:56 | P.PN ---
Subjective Progress Note Date: 02/21/19 Principal diagnosis: Infective endocarditis with septic emboli The patient is seen today 02/21/2019 in follow-up on the selective care unit. She remains awake and alert in no acute distress. Resting comfortably in bed. On room air. She is afebrile. Hemodynamically stable. Remains on cefazolin. White count 9.8. Hemoglobin 10.6. Creatinine 0.57. No chest pain or palpit ations. Objective - Vital Signs Vital signs: Vital Signs Temp 98.5 F 02/21/19 11:40 Pulse 54 L 02/21/19 11:40 Resp 16 02/21/19 11:40 BP 134/80 02/21/19 11:40 Pulse Ox 97 02/21/19 11:40 Intake & Output 02/20/19 02/21/19 02/21/19 18:59 06:59 18:59 Intake Total 420 50 480 Balance 420 50 480 Weight 66.1 kg 64.7 kg Intake: IV 80 ns@10 80 Intake, IV Titration 100 50 Amount ceFAZolin 2 gm In Sodium 100 50 Chloride 0.9% 50 ml @ 100 mls/hr IVPB Q8H [facility] Rx#: [id number] Oral 240 480 Other: Voiding Method Toilet # Voids 1 2 - Exam GENERAL EXAM: Alert, pleasant 43-year-old female patient, in no respiratory distress. On room air. HEAD: Normocephalic. EYES: Normal reaction of pupils, equal size. NOSE: Clear with pink turbinates. THROAT: No erythema or exudates. NECK: No masses, no JVD. CHEST: No chest wall deformity. LUNGS: Equal air entry with crackles, wheeze or rhonchi.. CVS: S1 and S2 normal with an audible murmur, regular rhythm. ABDOMEN: No hepatosplenomegaly, normal bowel sounds, no guarding or rigidity. SPINE: No scoliosis or deformity SKIN: No rashes CENTRAL NERVOUS SYSTEM: No focal deficits, tone is normal in all 4 extremities. EXTREMITIES: There is no peripheral edema. No clubbing, no cyanosis. Peripheral pulses are intact. - Labs CBC & Chem 7: 02/21/19 06:19 02/21/19 06:19 Labs: Abnormal Lab Results - Last 24 Hours (Table) 02/21/19 02/21/19 02/21/19 Range/Units 06:19 06:19 06:19 Hgb 10.6 L (11.4-16.0) gm/dL Hct 33.6 L (34.0-46.0) % RDW 15.9 H (11.5-15.5) % Plt Count 614 H (150-450) k/uL Chloride 108 H (98-107) mmol/L Calcium 8.2 L (8.4-10.2) mg/dL Iron 29 L (50-170) ug/dL Iron Saturation 11.69 L (12.00-45.00) Microbiology - Last 24 Hours (Table) 02/18/19 06:04 Blood Culture - Preliminary Blood No Growth after 72 hours 02/17/19 06:04 Blood Culture - Preliminary Blood No Growth after 96 hours Assessment and Plan Assessment: Pression: #1 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 There are also septic emboli in the bilateral lungs and a small right lower lung pulmonary emboli. NASREEN reveals infective endocarditis involving the tricuspid valve with evidence of large vegetation measuring 1.5 cm involving the anterior tricuspid valve leaflet. There is severe tricuspid regurgitation seen. #2 History of IV heroin use. #3 History of smoking crack cocaine. #4 History of hepatitis C. #5 Chronic obstructive pulmonary disease, suspected. #6 Chronic and ongoing tobacco dependence. #7 Anemia of chronic disease. Plan: The patient was seen and evaluated by Dr. Cook. No pulmonary complaints. She remains on Ancef per ID services. They're trying to arrange for outpatient weekly infusions of dalbavancin. If that is not covered will need placement in an extended care facility for IV Ancef as she could not have a more permanent IV due to her active history of IV drug abuse. We will follow the patient on as- needed basis. I, the cosigning physician, performed a history & physical examination of the patient. Lungs sounds are clear. Maintaining good O2 saturations in the 90s on room air. I discussed the assessment and plan of care with my nurse practitioner, Nayeli Westfall. I attest to the above note as dictated by her.
[2019-02-21] MEDS: WARFARIN 5 MG TAB PO SCH (17:51)
--- NOTE | 2019-02-21 22:46 | P.PN ---
Subjective Progress Note Date: 02/21/19 43-year-old female who family relates is in a half-way house at this time because of her heroin use. Is brought to the emergency center because of fevers chills and altered mental status. It is and the patient remains a poor historian and her family is able to relate that she's had great difficulties with her drug use. The mother relates that the current setting is supposed to discourage drug use, however it appears that she is actively still using heroin. At presentation because of her fever and chills workup was initiated which has included chest x-ray which shows evidence of multiple pneumonia. Computed tomography scan of the chest was performed because of pleuritic chest pain that verifies multifocal pneumonia as well as a pulmonary embolus. 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 With all these findings as well as the positive blood culture resulted in infectious diseases consultation. 02/15/2019 patient continues to have difficulties with her narcotic withdrawal is anxious and agitated. Clonidine was added hopefully with some mild improveme nt. Fever is showing some improvement. Work up is in progress with cardiology and a NASREEN has now been planned given her tricuspid valve endocarditis. 02/16/2019 NASREEN has been performed showing evidence of the extensive vegetation and the tricuspid valve regurgitation. The patient is mildly agitated but is quite sedated. No other acute difficulties are noted post procedure. 02/17/2019 patient is stable. Continues to complain of severe pain to her left chest. Receiving several pain medications but she remains discontent. We discussed her high opioid tolerance. Her shortness of breath is improved. She is updated on the outcome of her NASREEN, no plans for surgical intervention. Once her bacteremia clears will be able to determine the outpatient course. 02/20/2019 the patient is definitely improved from admission. She is awake and alert and interactive concerned about her plans will be at the time of her discharge. She continues to have some pleuritic chest pain related to her multiple septic pulmonary emboli and pulmonary embolism. No further fever or chills. She is eating well. No nausea or emesis. 02/21/2019 patient has further improvement. There has been removals of narcot ics and decreased dosing of benzodiazepine. She is now awake alert infection quite pleasant. Her pain is under quite good control. The pleuritic chest pains from the septic pulmonary emboli and pulmonary embolus are all much improved today. Be controlled with anti-inflammatories. Objective - Vital Signs Vital signs: Vital Signs Temp 98.2 F 02/21/19 19:58 Pulse 71 02/21/19 19:58 Resp 15 02/21/19 19:58 BP 107/69 02/21/19 19:58 Pulse Ox 96 02/21/19 19:58 Intake & Output 02/21/19 02/21/19 02/22/19 06:59 18:59 06:59 Intake Total 50 480 Balance 50 480 Weight 64.7 kg Intake: Intake, IV Titration 50 Amount ceFAZolin 2 gm In Sodium 50 Chloride 0.9% 50 ml @ 100 mls/hr IVPB Q8H [facility] Rx#: [id number] Oral 480 Other: Voiding Method Toilet Toilet # Voids 1 2 - Exam 43-year-old woman, kadeem HEENT: Anicteric conjunctiva are pink and moist nasal mucosa grossly intact without significant lesions, there is no thrush. Poor dentition Neck: The neck is supple without significant lymphadenopathy or thyromegaly. Lungs: Symmetrical air entry with wheezing throughout the lung avalos Aufranc b ronchial sounds Heart: Regular rate and rhythm with an audible audible S1 and S2 soft S4 no significant murmur is noted Abdomen: Positive bowel sounds soft and nontender without palpable masses or org anomegaly. There was no guarding or rebound. Extremities: The upper extremities have excellent pulses they are symmetric, no significant petechiae or telangiectasia. No splinter hemorrhages were noted. The lower extremities are free from significant edema. The peripheral pulses were 2+ and symmetric. Neuro: Arousable poor historian. But able to move all extremities. - Labs CBC & Chem 7: 02/21/19 06:19 02/21/19 06:19 Labs: Abnormal Lab Results - Last 24 Hours (Table) 02/21/19 02/21/19 02/21/19 Range/Units 06:19 06:19 06:19 Hgb 10.6 L (11.4-16.0) gm/dL Hct 33.6 L (34.0-46.0) % RDW 15.9 H (11.5-15.5) % Plt Count 614 H (150-450) k/uL Chloride 108 H (98-107) mmol/L Calcium 8.2 L (8.4-10.2) mg/dL Iron 29 L (50-170) ug/dL Iron Saturation 11.69 L (12.00-45.00) Microbiology - Last 24 Hours (Table) 02/18/19 06:04 Blood Culture - Preliminary Blood No Growth after 72 hours 02/17/19 06:04 Blood Culture - Preliminary Blood No Growth after 96 hours Laboratory Results WBC 9.8 k/uL (3.8-10.6) 02/21/19 06:19 RBC 3.81 m/uL (3.80-5.40) 02/21/19 06:19 Hgb 10.6 gm/dL (11.4-16.0) L 02/21/19 06:19 Hct 33.6 % (34.0-46.0) L 02/21/19 06:19 MCV 88.2 fL (80.0-100.0) 02/21/19 06:19 MCH 27.9 pg (25.0-35.0) 02/21/19 06:19 MCHC 31.7 g/dL (31.0-37.0) 02/21/19 06:19 RDW 15.9 % (11.5-15.5) H 02/21/19 06:19 Plt Count 614 k/uL (150-450) H 02/21/19 06:19 Neutrophils % 72 % 02/21/19 06:19 Lymphocytes % 19 % 02/21/19 06:19 Monocytes % 4 % 02/21/19 06:19 Eosinophils % 2 % 02/21/19 06:19 Basophils % 1 % 02/21/19 06:19 Neutrophils # 7.1 k/uL (1.3-7.7) 02/21/19 06:19 Lymphocytes # 1.9 k/uL (1.0-4.8) 02/21/19 06:19 Monocytes # 0.4 k/uL (0-1.0) 02/21/19 06:19 Eosinophils # 0.2 k/uL (0-0.7) 02/21/19 06:19 Basophils # 0.1 k/uL (0-0.2) 02/21/19 06:19 Hypochromasia Slight 02/21/19 06:19 Anisocytosis Slight 02/19/19 07:21 ESR 66 mm/hr (0-20) H 02/17/19 06:55 PT 13.7 sec (9.0-12.0) H 02/13/19 20:34 INR 1.3 (<1.2) H 02/13/19 20:34 APTT 66.5 sec (22.0-30.0) H 02/18/19 08:05 Sodium 139 mmol/L (137-145) 02/21/19 06:19 Potassium 4.2 mmol/L (3.5-5.1) 02/21/19 06:19 Chloride 108 mmol/L (98-107) H 02/21/19 06:19 Carbon Dioxide 26 mmol/L (22-30) 02/21/19 06:19 Anion Gap 5 mmol/L 02/21/19 06:19 BUN 12 mg/dL (7-17) 02/21/19 06:19 Creatinine 0.57 mg/dL (0.52-1.04) 02/21/19 06:19 Est GFR (CKD-EPI)AfAm >90 (>60 ml/min/1.73 sqM) 02/21/19 06:19 Est GFR (CKD-EPI)NonAf >90 (>60 ml/min/1.73 sqM) 02/21/19 06:19 Glucose 99 mg/dL (74-99) 02/21/19 06:19 Plasma Lactic Acid Sven 1.0 mmol/L (0.7-2.0) 02/13/19 20:34 Calcium 8.2 mg/dL (8.4-10.2) L 02/21/19 06:19 Magnesium 1.9 mg/dL (1.6-2.3) 02/15/19 07:00 Iron 29 ug/dL (50-170) L 02/21/19 06:19 TIBC 248 ug/dL (228-460) 02/21/19 06:19 Iron Saturation 11.69 (12.00-45.00) L 02/21/19 06:19 Ferritin 221.7 ng/mL (10.0-291.0) 02/21/19 06:19 Total Bilirubin 0.7 mg/dL (0.2-1.3) 02/13/19 20:34 AST 27 U/L (14-36) 02/13/19 20:34 ALT 15 U/L (9-52) 02/13/19 20:34 Alkaline Phosphatase 76 U/L (38-126) 02/13/19 20:34 Troponin I <0.012 ng/mL (0.000-0.034) 02/14/19 08:11 NT-Pro-B Natriuret Pep 2650 pg/mL 02/18/19 17:01 Total Protein 5.9 g/dL (6.3-8.2) L 02/13/19 20:34 Albumin 2.5 g/dL (3.5-5.0) L 02/13/19 20:34 Vitamin B12 603.0 pg/mL (200.0-944.0) 02/21/19 06:19 Urine Color Yellow 02/13/19 21:17 Urine Appearance Cloudy (Clear) H 02/13/19 21:17 Urine pH 8.0 (5.0-8.0) 02/13/19 21:17 Ur Specific [place] 1.021 (1.001-1.035) 02/13/19 21:17 Urine Protein 2+ (Negative) H 02/13/19 21:17 Urine Glucose (UA) Negative (Negative) 02/13/19 21:17 Urine Ketones Negative (Negative) 02/13/19 21:17 Urine Blood Negative (Negative) 02/13/19 21:17 Urine Nitrite Negative (Negative) 02/13/19 21:17 Urine Bilirubin Negative (Negative) 02/13/19 21:17 Urine Urobilinogen >12.0 mg/dL (<2.0) 02/13/19 21:17 Ur Leukocyte Esterase Large (Negative) H 02/13/19 21:17 Urine RBC 8 /hpf (0-5) H 02/13/19 21:17 Urine WBC 47 /hpf (0-5) H 02/13/19 21:17 Ur Squamous Epith Cells 8 /hpf (0-4) H 02/13/19 21:17 Urine Bacteria Moderate /hpf (None) H 02/13/19 21:17 Hyaline Casts 1 /lpf (0-2) 02/13/19 21:17 Urine HCG, Qual Not Detected (Not Detectd) 02/13/19 21:17 Hepatitis A IgM Ab Non-Reactive (Non-Reactive) 02/15/19 07:00 Hep Bs Antigen Non-Reactive (Non-Reactive) 02/15/19 07:00 Hep B Core IgM Ab Non-Reactive (Non-Reactive) 02/15/19 07:00 Hep C IgG Ab Reactive (Non-Reactive) H 02/15/19 07:00 HIV-1 Antibody Non-Reactive (Non-Reactive) 02/15/19 07:00 HIV Ag/Ab Interpret 02/15/19 07:00 HIV p24 Antibody Non-Reactive (Non-Reactive) 02/15/19 07:00 HIV-2 Antibody Non-Reactive (Non-Reactive) 02/15/19 07:00 HIV P24 Antigen Non-Reactive (Non-Reactive) 02/15/19 07:00 Microbiology 02/18/19 06:04 Blood Blood Culture - Preliminary No Growth after 72 hours 02/17/19 06:04 Blood Blood Culture - Preliminary No Growth after 96 hours 02/15/19 07:00 Blood Blood Culture Gram Stain - Final 02/15/19 07:00 Blood Blood Culture - Final Staphylococcus aureus 02/13/19 21:21 Blood Blood Culture Gram Stain - Final 02/13/19 21:21 Blood Blood Culture - Final Staphylococcus aureus 02/15/19 07:00 Blood Blood Culture - Final 02/13/19 21:17 Urine,Voided Urine Culture - Final 02/13/19 21:21 Blood Blood Culture - Final Assessment and Plan (1) Intravenous drug abuse Current Visit: Yes Status: Acute Code(s): F19.10 - OTHER PSYCHOACTIVE SUBSTANCE ABUSE, UNCOMPLICATED SNOMED Code(s): 515461257 (2) Endocarditis of tricuspid valve Narrative/Plan: 43-year-old female who has history of active injection drug use with heroin presents to Hospital of feeling poorly with fevers chills altered mental status. Echocardiogram has revealed evidence of the tricuspid valve endocarditis without valvular dysfunction or destruction. If this point in time antibiotic therapy is altered to Ancef and high dose of 2 g IV piggyback every 8 hours. This will be continued while she is in hospital. First challenge will be to determine course of antibiotic the time of her discharge. May require utilizing once weekly intravenous antibiotic therapy at the infusion clinic. Will not be a candidate for daily IV antibiotic therapy. Follow blood cultures requested HIV and hepatitis testing are requested Beta hCG was negative Smoking cessation is advised. Family is updated to her current status. 02/15/2019 patient remains agitated. However she is hemodynamically stable. Clonidine was added to try to help with her withdrawal symptoms. She is not hypotensive. Intravenous antibiotic therapy is with Ancef 2 g IV piggyback every 8 hours. His been discussed with the family she will not be a candidate for outpatient intravenous antibiotic therapy and will definitely have to have other plans at discharge. Cardiology is planned a NASREEN to further evaluate her tricuspid valve endocarditis. HIV is negative positive for hepatitis C which will need follow-up in the outpatient setting. 02/16/2019 the patient has undergone NASREEN and evidence of the extensive vegetation on the tricuspid valve is noted with significant tricuspid regurgitation. Blood cultures remain positive which we still with MSSA. HIV is negative hepatitis C positive which will have follow-up in the outpatient setting Cardiology is following status post the NASREEN and await their plans as far as any need for surgical evaluation given the large vegetation was seen. Follow-up blood cultures requested 02/17/2019 that we'll change the patient's status in that she still with significant pain to the left chest mostly. Generalized discomforts are occurring related to her narcotic withdrawal. Blood cultures remain positive r elated to her tricuspid valve endocarditis. It is not unusual to take up to 7 days to clear bacteremia related to this type of infection. Continue the high- dose Ancef. As has noted she will not be a candidate for port placement will need to have a alternative plan for her outpatient antibiotic therapy at discharge. 02/20/2019 the patient is having some improvement of her status. There is evide nce now of some negative blood culture showing evidence of response to the high- dose of cefazolin. Attempt arrangements in the outpatient setting with dalbavancin which is a once a week IV infusion. She is not a candidate for any type of more permanent IV access given her active injection drug use admission and not going to re- habilitation for drug use. If however she goes to an extended care facility and IV access can be placed to continue her current course of Ancef. The facility will be responsible for the patient. And she has been instructed that if she does have a PICC line or similar placed she cannot use it for anything other than sterile fluid in her antibiotics. If she injects with any other substance result in her .working with case management and pharmacy. 02/21/2019 there is further improvement of the status now with the removal of narcotic and benzodiazepine therapy she has emerged is much more comfortable in no longer anxious and so miserable. Working with the pharmacy on dalbavancin which would allow once weekly infusions to complete the treatment for endoca rditis. We discussed the pharmacy without treatment of her endocarditis this is often a fatal condition. She however is an active injection drug user and will not be going to drug rehab after discharge and consequently is simply not a candidate for port placement after discharge. Consequently placement of a peripheral IV and once weekly infusion appears to be the only significant option at this time. The thousand milligrams loading and 500 mg weekly 2 with a level IV week total course of therapy. We'll follow-up in the outpatient setting. Current Visit: Yes Status: Acute Code(s): I36.8 - OTHER NONRHEUMATIC TRICUSPID VALVE DISORDERS SNOMED Code(s): 41185640 (3) MSSA bacteremia Current Visit: Yes Status: Acute Code(s): R78.81 - BACTEREMIA SNOMED Code(s): 310039727 (4) Multifocal pneumonia Current Visit: Yes Status: Acute Code(s): J18.9 - PNEUMONIA, UNSPECIFIED ORGANISM SNOMED Code(s): 256794977
[2019-02-22] MEDS: HYDROcodone/APAP 7.5-325MG 1 EACH TAB PO PRN ×4 (00:19→19:22)
[2019-02-22] MEDS: PANTOPRAZOLE 40 MG TABLET PO SCH (06:06)
[2019-02-22 06:18] LABS: Prothrombin Time 19.7 sec (9.0-12.0)
[2019-02-22] MEDS: IBUPROFEN 200 MG TAB PO PRN (08:20)
[2019-02-22] MEDS: cloNIDine HCL 0.1 MG TAB PO SCH ×3 (08:21→20:19)
[2019-02-22] MEDS: SIMETHICONE 80 MG CHEWABLE PO SCH ×2 (08:22→20:19)
[2019-02-22] MEDS: ENOXAPARIN 60 MG/0.6 ML SYRINGE SQ SCH (08:26)
[2019-02-22] MEDS: NICOTINE 21MG/24HR PATCH TRANSDERM SCH (08:30)
--- NOTE | 2019-02-22 11:53 | P.PN ---
Subjective Progress Note Date: 02/22/19 This is a 43-year-old patient with no prior documented history of hypertension, nondiabetic, no hyperlipidemia, she does smoke cigarettes, and uses heroin IV. She states that she's been a heroin user for the past 2 years, prior to that she was a user of prescription drugs. She presents to the hospital on this occasion with symptoms of chest pain which she describes as a pressure sensation with associated sharp pains. Patient has also been running fevers. A CTA of the chest was performed on arrival here which revealed small pulmonary embolus in the right lower lobe segmental artery, multiple scattered foci of consolidation bilaterally throughout the lungs a broad differential diagnosis includes neoplastic process, it fevers septic emboli. Small and mildly enlarged right nodes. Hepatomegaly. Mildly dilated common bile duct. Splenomegaly. Chest x-ray shows multifocal pneumonia. EKG shows a sinus tachycardia with no acute changes. Blood pressure 96/68 with a heart rate in th e 60s, 100% on room air. White blood cell count 17.5, hemoglobin 10.3, platelet count 212. Sodium 125, potassium 3.0, BUN 15 and creatinine 0.7. Troponins are negative 3. BNP level 1930. Patient did have a temperature of 101.5 on arrival here. The cultures positive for gram-positive cocci in clusters. A consultation has been requested with infectious disease. Echocardiogram with Doppler study has been performed, results are yet pending. 02/15/2019 Patient's echocardiogram with Doppler study revealed a normal left ventricular systolic function, there is moderate tricuspid regurgitation with moderate sized mobile vegetation attached to the anterior tricuspid valve leaflet. Patient is definitely going through withdrawal today. Blood pressure 120/60 with a heart rate in the 70s, 98% on 2 L of oxygen. Parents are at bedside, patient has been advised that she'll need to undergo a transesophageal echocardiographic study tomorrow. The risks and the benefits were explained to the patient and her parents in detail, this will be performed tomorrow by Dr. Hatch. 02/17/2019 Patient did undergo a NASREEN yesterday by Dr. Rubin which revealed infective endocarditis involving the tricuspid valve with evidence of large vegetation measuring 1.5 cm involving the anterior tricuspid valve leaflet. There is severe tricuspid regurgitation. Small circumferential pericardial effusion is seen. The decision at this point in time is to stabilize the patient with antibiotics rather than surgery. Patient is complaining of some intermittent chest pain, pleuritic in nature. Likely secondary to the septic emboli. Blood pressure 122/70 with a heart rate of 60, 97% on room air. 02/18 2019 Patient was seen and examined this morning, continues to complain of a left- sided chest pain, sharp in nature, worsens with deep breathing. Hemodynamically she is stable. Continues to request more narcotics. Repeat chest x-ray was performed today which revealed mild congestive heart failure with pleural fluid worse than prior exam. 02/19/2019 Patient was seen and examined this morning, much more alert today overall. IV heparin a been discontinued and patient was initiated on Eliquis per PE protocol. Blood pressure 126/78 with a heart rate in the 80s, 94% on room air. White blood cell count 14.0, hemoglobin 10.3, platelet count 535. Sodium 138, potassium 4.1, BUN 9 and creatinine 0.5. 02/20/2019 She was seen and examined today, awake alert in no acute distress, resting comfortably, hemodynamically stable. 02/21/2019 Patient seen and examined this morning, mother at bedside. Eating lunch, overall feeling well, eager to be discharged home. From cardiology's perspective she has remained hemodynamically stable, when she is cleared by infectious disease and primary she may be able to be discharged home. We recommend a follow-up appointment with Dr. Hatch in the office post discharge in 6 weeks' time we will repeat a NASREEN. 02/22/2019 Patient was seen and examined this morning, overall doing well. Arrangements are being made for discharge and arrangements for IV antibiotics. Hemodynamically she stable. Objective - Vital Signs Vital signs: Vital Signs Temp 98.4 F 02/22/19 08:10 Pulse 65 02/22/19 08:10 Resp 16 02/22/19 08:10 BP 118/73 02/22/19 08:10 Pulse Ox 99 02/22/19 08:10 Intake & Output 02/21/19 02/22/19 02/22/19 18:59 06:59 18:59 Intake Total 480 50 Balance 480 50 Weight 64.7 kg Intake: Intake, IV Titration 50 Amount ceFAZolin 2 gm In Sodium 50 Chloride 0.9% 50 ml @ 100 mls/hr IVPB Q8HR [facility] Rx# :[id number] Oral 480 Other: Voiding Method Toilet Toilet Toilet # Voids 2 1 1 - Exam PHYSICAL EXAMINATION: GENERAL: 43-year-old female anxious and fidgety today HEENT: Head is atraumatic, normocephalic. Pupils equal, round. Sclera anicteric. Conjunctiva are clear. Mucous membranes of the mouth are moist. Neck is supple. There is no elevated jugular venous pressure. No carotid bruit is heard. HEART EXAMINATION: Heart S1 S2 1 systolic murmur is heard. CHEST EXAMINATION: Lungs clear with improvement in air entry to the bases ABDOMEN: Soft, nontender. Bowel sounds are heard. No organomegaly noted. EXTREMITIES: 2+ peripheral pulses with no evidence of peripheral edema and no calf tenderness noted. NEUROLOGIC patient is awake, alert and oriented 3 . - Labs CBC & Chem 7: 02/21/19 06:19 02/21/19 06:19 Labs: Abnormal Lab Results - Last 24 Hours (Table) 02/21/19 02/21/19 02/22/19 Range/Units 06:19 06:19 05:58 PT 19.7 H (9.0-12.0) sec INR 2.0 H (<1.2) Iron 29 L (50-170) ug/dL Iron Saturation 11.69 L (12.00-45.00) RBC Folate 798 H (280 - 791) ng/mL Microbiology - Last 24 Hours (Table) 02/18/19 06:04 Blood Culture - Preliminary Blood No Growth after 96 hours 02/17/19 06:04 Blood Culture - Preliminary Blood No Growth after 120 hours Assessment and Plan Plan: Assessment and plan #1 atypical chest pain, not suggestive of acute coronary syndrome. Troponins negative 3. EKG shows a sinus tachycardia with no acute changes. #2 sepsis, temperature 101.5 on arrival, elevated white blood cell count, evide nce of multifocal pneumonia on chest x-ray and CAT scan, evidence on CAT scan also of a pulmonary embolism and ossicle septic emboli, positive blood cultures #3 IV heroin drug use, current, over the past 3 years she states she uses up to 3 times daily #4 nicotine dependence #5 tricuspid valve endocarditis Plan From cardiology's perspective, we'll continue the patient on her current medications. The plan is for long-term IV antibiotics. Follow-up with Dr. Hatch in the office post discharge, repeat NASREEN as an outpatient in 6 weeks. DNP note has been reviewed, I agree with a documented findings and plan of care. Patient was seen and examined.
--- NOTE | 2019-02-22 15:39 | P.PN ---
Subjective Progress Note Date: 02/22/19 Principal diagnosis: This is a 43-year-old female with a past medical history of multiple medical problems who was admitted with an elevated white blood count hyponatremia and hypokalemia. A CTA was done showing a small pulmonary embolism in the right lower segmental artery and multiple scattered foci of consolidation airspace disease bilaterally with small cavitary appearance indicating possible septic emboli as being closely monitored. Pulmonary and cardiology are following. Patient is lying in bed in mild acute distress stating she is having side pain with father at the bedside. Patient is asking for more Dilaudid stating that the pain is severe. Patient denies any shortness of breath or chest pain at this time. Patient is twisting back and forth in bed stating that the site pain is severe. Patient denies any nausea or vomiting at this time. Patient is afebrile. Patient does have a history of polysubstance abuse and is having active withdrawals. Patient is to undergo a NASREEN in the morning. Patient is currently still on IV heparin drip. Guarded prognosis REVIEW OF SYSTEMS: ENT: No diminished vision or hearing. CARDIOVASCULAR: Mentioned earlier. RESPIRATORY: As mentioned earlier. GI: No nauscea, vomiting or diarrhea. : No dysuria or retention. NERVOUS SYSTEM: No numbness or weakness. ALLERGY/IMMUNOLOGY: No asthma or hay fever. MUSCULOSKELETAL: As mentioned earlier. HEMATOLOGY/ONCOLOGY: No history of anemia. ENDOCRINE: No history of diabetes or hypothyroidism. CONSTITUTIONAL: As mentioned earlier. DERMATOLOGY: Negative. PSYCHIATRY: Mentioned earlier. RHEUMATOLOGY: Negative. Active Medications Albuterol/Ipratropium (Duoneb 0.5 Mg-3 Mg/3 Ml Soln) 3 ml INHALATION RT-Q4H PRN PRN Reason: shortness of breath Clonidine (Catapres) 0.1 mg PO TID [facility] Last Admin: 02/15/19 15:34 Dose: 0.1 mg Documented by: Heparin Sodium (Porcine) (Heparin) 0 unit IV PER PROTOCOL PRN; Protocol PRN Reason: Low PTT Hydromorphone HCl (Dilaudid) 1 mg IVP Q4H PRN PRN Reason: Pain Last Admin: 02/15/19 13:08 Dose: 1 mg Documented by: Heparin Sodium/Sodium Chloride (25,000 unit/ Sodium Chloride) 250 mls @ 11.022 mls/hr IV .[id number] [facility]; Protocol Last Admin: 02/15/19 15:35 Dose: 26.53 units/kg/hr, 16.247 mls/hr Documented by: Cefazolin Sodium 2 gm/ Sodium (Chloride) 50 mls @ 100 mls/hr IVPB Q8H [facility] Last Admin: 02/15/19 13:06 Dose: 100 mls/hr Documented by: Lorazepam (Ativan) 0.5 mg IV Q4HR PRN PRN Reason: Anxiety Last Admin: 02/15/19 15:22 Dose: 0.5 mg Documented by: Miscellaneous Information (Magnesium Per Protocol) 1 each MISCELLANE DAILY PRN; Protocol PRN Reason: Per Protocol Miscellaneous Information (Potassium Per Protocol) 1 each MISCELLANE DAILY PRN; Protocol PRN Reason: Per Protocol Nicotine (Habitrol 21mg/24hr Patch) 1 patch TRANSDERM DAILY [facility] Last Admin: 02/15/19 09:22 Dose: 1 patch Documented by: Ondansetron HCl (Zofran) 8 mg IVP Q8H PRN PRN Reason: Nausea Pantoprazole Sodium (Protonix) 40 mg IV DAILY [facility] Last Admin: 02/15/19 09:26 Dose: 40 mg Documented by: 02/16/2019 Patient underwent a NASREEN this morning showing extensive vegetation and tricuspid valve regurgitation. Patient is currently on IV antibiotic therapy for e ndocarditis and may require outpatient antibiotic therapy. Infectious disease is following closely and coordinating care for IV therapy once discharged for weekly therapy at the clinic due to polysubstance and IV drug use history and risk of using the midline or PICC for IV access of illicit drug use. Parents are at the bedside and are aware of the treatment plan and agree to close monitoring. Hematology/Oncology was consulted for continued anticoagulation therapy recommendations. Patient is currently still on IV heparin and may be switched to oral once procedures are done and insurance coverage is verified. Patient denies any shortness of breath, chest pain, or palpitations. Patient is afebrile. Patient is still having a lot of generalized pain and requesting an increase in pain medication. Patient's withdrawal symptoms have lessened but are still present. Patient is up and walking to the bathroom with no difficulty. 02/19/2019 Patient is sitting up in bed in no acute distress and is pleasant this afternoon. Patient is awake and alert moreso than yesterday. Patient is attempting to straighten her hair as she states it has been a mess for the last 3 days. Mother is at the bedside. Patient is currently still on IV antibiotics per infectious disease and is being closely monitored. Patient has transitioned to oral anticoagulation. Patient denies any chest pain, shortness of breath or palpitations at this time. Patient denies any nausea or vomiting and tolerating diet well. Patient is afebrile. Patient is still limited visitation per parents request due to history of drug abuse and they are in fear of some of her friends bringing illicit drugs into the hospital. Guarded prognosis. 02/20/2019 Patient is sitting up at the side of the bed resting but easily arousable. Jaiden banda is alert and able to conversate more each day. Patient is currently awaiting discharge plans for possible once a week IV therapy at the [facility] with Dalbavancin per infectious disease as her parents have agreed to provide transportation here to ensure she receives her antibiotic therapy or possible down at a facility in [place] and at that time could receive a PICC line for continued antibiotic therapy. Given her recent past history of IV drug abuse, the [facility] will most likely be the optimal choice for a plan of action. Patient is agreeable to this. Patient currently has no insurance at this time. Case management and social work are following closely. Patient was also transi tioned from IV heparin to Eliquis, but due to the fact that patient has no insurance the cost would not be manageable at this time. We are discontinuing the Eliquis and starting Lovenox 60 mg BID with a bridge to Coumadin 5 mg daily. Patient is to have her PTINR checked in 5 days. Coumadin is relatively cheap and the patient may likely be more compliant of taking this medication. Patient denies any shortness of breath, chest pain, or palpitations at this time. Patient states that she has generalized pain. Patient is tolerating regular diet and denies any nausea or vomiting. Patient's gait is steady. Guarded prognosis. 02/21/2019. Patient is sitting up near the window in no acute distress. Gait is steady. Patient is on room air. Patient denies any chest pain, shortness of breath, or palpitations at this time. Patient is afebrile. Patient denies any nausea or vomiting. Patient is tolerating diet. Patient is currently awaiting authorization with pharmacy to approve antibiotics that were recommended by infectious disease. Guarded prognosis. We'll continue to follow closely. 02/22/2019 Patient is awaiting authorization for IV dalbavancin and was approved by the pharmacy. Patient did obtain Medicaid today. We are currently waiting on the antibiotics to be delivered so that she can start treatment possibly tomorrow or Tuesday morning. Patient denies any chest pain, palpitations or shortness of breath at this time. Patient is tolerating diet with no active nausea or vo miting. Patient is not actively withdrawing at this time. Discussed in length about avoiding all IV drug use and patient verbalizes understanding. Guarded prognosis. Probable discharge in 24 hours. Objective - Vital Signs Vital signs: Vital Signs Temp 98.4 F 02/22/19 08:10 Pulse 65 02/22/19 08:10 Resp 16 02/22/19 08:10 BP 118/73 02/22/19 08:10 Pulse Ox 99 02/22/19 08:10 Intake & Output 02/21/19 02/22/19 02/22/19 18:59 06:59 18:59 Intake Total 480 50 240 Balance 480 50 240 Weight 64.7 kg Intake: Intake, IV Titration 50 Amount ceFAZolin 2 gm In Sodium 50 Chloride 0.9% 50 ml @ 100 mls/hr IVPB Q8HR [facility] Rx# :[id number] Oral 480 240 Other: Voiding Method Toilet Toilet Toilet # Voids 2 1 1 - Exam Gen: This is a 43-year-old female sitting up in bed in no acute distress. Vital signs are stable. HEENT: Head is atraumatic, normocephalic. Pupils equal, round. Sclerae is anicteric. NECK: Supple. No JVD. No lymphadenopathy. No thyromegaly. LUNGS: Diminished in the bases with a few scattered rhonchi noted. No intercostal retractions. HEART: S1 and S2 are muffled with an ejection systolic murmur. ABDOMEN: Soft. Bowel sounds are present. No masses. No tenderness. EXTREMITIES: No pedal edema. No calf tenderness. NEUROLOGICAL: Patient is awake, alert and oriented x3. Cranial nerves 2 through 12 are grossly intact. Gait is steady - Labs CBC & Chem 7: 02/21/19 06:19 02/21/19 06:19 Labs: Abnormal Lab Results - Last 24 Hours (Table) 02/21/19 02/21/19 02/22/19 Range/Units 06:19 06:19 05:58 PT 19.7 H (9.0-12.0) sec INR 2.0 H (<1.2) Iron 29 L (50-170) ug/dL Iron Saturation 11.69 L (12.00-45.00) RBC Folate 798 H (280 - 791) ng/mL Microbiology - Last 24 Hours (Table) 02/18/19 06:04 Blood Culture - Preliminary Blood No Growth after 96 hours 02/17/19 06:04 Blood Culture - Preliminary Blood No Growth after 120 hours Assessment and Plan Assessment: Bilateral pneumonia, possibly septic emboli secondary to infective endocarditis present on admission with possible sepsis present on admission Infective endocarditis with tricuspid valve vegetations, subacute with possible sepsis, present on admission with MSSA possible acute pulmonary embolism History of IV drug abuse Hyponatremia Hypokalemia Anemia of chronic disease Possible urinary tract infection History of back pain History of hepatitis C History of nicotine dependence Polysubstance abuse Anticoagulation: Lovenox discontinued patient will be on Coumadin 4 mg daily. Will check PT/INR in the morning. Recommendations and discussion This is a 43-year-old woman who has multiple complex medical issues and will be monitored closely. Recommend continue current medications, management, and symptomatic treatment. The patient will continue on broad-spectrum IV antibiotics per infectious disease recommendations. Cardiology, pulmonary, and ID is following the patient closely. Prognosis is extremely guarded. Further recommendations to follow. Patient did obtain authorization on antibiotics and also did obtain Medicaid insurance. Possible discharge in 24 hours.
[2019-02-22] MEDS ORDERED: WARFARIN 2 MG TAB PO SCH (18:00)
[2019-02-23] MEDS: HYDROcodone/APAP 7.5-325MG 1 EACH TAB PO PRN ×2 (01:05→08:30)
[2019-02-23 03:46] VITALS: RESP 18
[2019-02-23] MEDS: PANTOPRAZOLE 40 MG TABLET PO SCH (05:59)
[2019-02-23] MEDS: NICOTINE 21MG/24HR PATCH TRANSDERM SCH (08:30)
[2019-02-23] MEDS: cloNIDine HCL 0.1 MG TAB PO SCH (08:31)
[2019-02-23] MEDS: SIMETHICONE 80 MG CHEWABLE PO SCH (08:31)
[2019-02-23 08:41] LABS: INR 2.6 (<1.2); Prothrombin Time 25.5 sec (9.0-12.0)
[2019-02-23 09:40] VITALS: BP 116/74; PULSE 89; TEMP 98.5
--- NOTE | 2019-02-23 15:57 | P.DS ---
Providers Date of admission: 02/14/19 00:33 Expected date of discharge: 02/23/19 Attending physician: Case Luo MD Consults: 02/14/19 00:33 Consult Physician Routine Consulting Provider: Juni Dennis Consult Reason/Comments: multifocal pneumonia Do you want consulting provider notified?: Yes 02/14/19 00:35 Consult Physician Routine Consulting Provider: Edward Garnett Consult Reason/Comments: multifocal pneumonia, IVDA Do you want consulting provider notified?: Yes 02/14/19 01:01 Consult Physician Urgent Consulting Provider: Laisha Arzola Consult Reason/Comments: septic pulmonary emboli, possible endocarditis Do you want consulting provider notified?: Yes 02/16/19 13:04 Consult Physician Urgent Consulting Provider: Bryant Anderson Consult Reason/Comments: anticoagulation, on IV heparin, endocarditis Do you want consulting provider notified?: Yes Primary care physician: Stated None Hospital Course: Final diagnosis Bilateral pneumonia, possibly septic emboli secondary to infective endocarditis present on admission with possible sepsis present on admission Infective endocarditis with tricuspid valve vegetations, MSSA Possible acute pulmonary embolism History of IV drug abuse Hyponatremia Hypokalemia Anemia of chronic disease Possible urinary tract infection History of back pain History of hepatitis C History of nicotine dependence Polysubstance abuse Anticoagulation therapy Discharge disposition Patient is being discharged in a stable condition with guarded prognosis and will be reporting to the [facility] each week for IV Dalbavancin per infectious disease recommendations. Total time taken 30 minutes. Patient will also need a repeat PT/INR in 1-2 days with the start of Coumadin. History of present illness This is a 43-year-old female who was recently admitted with multiple complex medical problems and found to have a small pulmonary embolism in the right lower segmental artery as well as possible septic emboli. Cardiology and pulmonary were following closely along with infectious disease. Patient does have infective endocarditis with tricuspid valve vegetations. Patient is a known history of intravenous heroin use prior to hospitalization and was not a candidate to receive a PICC line and have outpatient therapy of IV antibiotics. Per Dr. Garnett, the patient will benefit from weekly visits to the [facility] for IV therapy and parents have agreed to transport her here each week as she will be staying with them. Discussed with the patient at length that if she was to continue IV heroin use that she has a high probability of . Patient denies any chest pain, shortness of breath, or palpitations at this time. Patient has been up and walking with no difficulties on room air. Patient denies any nausea or vomiting and has been tolerating diet. Due to the lack of insurance and cost of anticoagulation, the patient was started on Coumadin at 4 mg and will need a repeat PT/INR in 1-2 days. Patient was currently working on obtaining Medicaid. Patient is currently stable with much improvement. On exam vital signs are stable. Blood pressure is 116/74, pulse is 89, respirations 18, temp is 98.5 Fahrenheit, oxygen saturation is 98% on room air. Cardio S1 and S2 are normal. Respiratory system shows clear to auscultation. Abdomen is soft and non-tender. Nervous system shows no focal deficits and gait is steady. Please refer to medication reconciliation sheet for a list of medications. Patient Condition at Discharge: Stable Plan - Discharge Summary Discharge Rx Participant: No New Discharge Prescriptions: New Non-Formulary Drug [Non Formulary Drug] 1 each IV ONCE #1 misc Ibuprofen [Advil] 200 mg PO TID PRN tab PRN Reason: Fever Or Pain Warfarin [Coumadin] 4 mg PO DAILY@1800 #30 tab Discharge Medication List Non-Formulary Drug [Non Formulary Drug] 1 each IV ONCE #1 misc 02/20/19 [Rx] Ibuprofen [Advil] 200 mg PO TID PRN tab 02/23/19 [Rx] Warfarin [Coumadin] 4 mg PO DAILY@1800 #30 tab 02/23/19 [Rx] Follow up Appointment(s)/Referral(s): Mai Duncan MD [REFERRING] - 1 Week (please find a new primary physician) Terell Rubin MD [STAFF PHYSICIAN] - 03/02/19 1:45 pm (Tuesday) Edward Garnett MD [STAFF PHYSICIAN] - 03/15/19 1:30 pm () Ambulatory/Diagnostic Orders: Prothrombin Time INR [LAB.AMB] Time Frame: 2 Days, Location: None Selected Patient Instructions/Handouts: Endocarditis (DC), Vitamin K in Foods (DC), Safe Use of Anticoagulants (DC) Activity/Diet/Wound Care/Special Instructions: Report to [facility] - Pediatric Unit (6th floor [facility]) on TuesdayFebruary 24 at 2 p.m. for IV antibiotic infusion. They will notify you from there of your next appointment date/time. Activity limited until follow up Continue with antibiotic therapy each week as instructed Follow up with Dr. Garnett Follow up with cardiology Continue current diet Repeat labs for PT/INR in 2 days Discharge Disposition: HOME SELF-CARE
== END 2019-02-23 13:12 | disposition home or self-care (01) | DRG 871 ==
LOC: EC 20:21 → 3SCARD 02-14 00:33 → 3NMEDONC 02-18 16:24 → 3SCARD 02-19 08:55
PROVIDERS: ADMIT Internal Medicine; ATTEND Internal Medicine
PROC: 05HD33Z Insertion of Infusion Device into Right Cephalic Vein, Percutaneous Approach (ICD-10-PCS; 2019-02-14 16:00)
PROC: B246ZZ4 Ultrasonography of Right and Left Heart, Transesophageal (ICD-10-PCS; principal; 2019-02-16 08:32)
DX: A41.01 Sepsis due to Methicillin susceptible Staphylococcus aureus (principal); I26.90 Septic pulmonary embolism without acute cor pulmonale; I33.0 Acute and subacute infective endocarditis; J18.9 Pneumonia, unspecified organism; E87.1 Hypo-osmolality and hyponatremia; F11.23 Opioid dependence with withdrawal; I31.3 Pericardial effusion (noninflammatory); J44.0 Chronic obstructive pulmonary disease with (acute) lower respiratory infection; N39.0 Urinary tract infection, site not specified; Z86.19 Personal history of other infectious and parasitic diseases; D63.8 Anemia in other chronic diseases classified elsewhere; E87.6 Hypokalemia; F17.210 Nicotine dependence, cigarettes, uncomplicated; Z71.6 Tobacco abuse counseling; Z71.51 Drug abuse counseling and surveillance of drug abuser; F41.9 Anxiety disorder, unspecified; I08.1 Rheumatic disorders of both mitral and tricuspid valves; I50.9 Heart failure, unspecified; K83.8 Other specified diseases of biliary tract; F19.10 Other psychoactive substance abuse, uncomplicated; Z88.5 Allergy status to narcotic agent; M19.90 Unspecified osteoarthritis, unspecified site; R53.82 Chronic fatigue, unspecified
CPT/HCPCS: 36410; 36415; 70450; 71045; 71046; 71275; 76937; 80048; 80051; 80053; 80074; 81001; 81025; 82607; 82728; 82747; 83540; 83550; 83605; 83735; 83880; 84484; 85025; 85027; 85610; 85652; 85730; 87040; 87077; 87086; 87186; 87390; 93005; 93306; 93312; 93320; 93325; 93970; 94640; 96365; 96366; 96367; 96368; 96375; 96376; 99285

== ENCOUNTER → 2019-02-26 | Outpatient (CLI) | payer OTHER ==
[2019-02-26 11:18] LABS: INR 2.7 (<1.2)
== END | disposition home or self-care (01) ==
LOC: LABWHC1 10:05
PROVIDERS: ATTEND Registered Nurse
DX: Z51.81 Encounter for therapeutic drug level monitoring (principal); Z79.01 Long term (current) use of anticoagulants
CPT/HCPCS: 36415; 85610

== ENCOUNTER → 2019-03-15 | Outpatient (CLI) | payer OTHER ==
[2019-03-15 14:54] LABS: Anisocytosis Slight; Basophils # (A) 0.1 k/uL (0-0.2); Basophils % (A) 1 %; Eosinophils # (A) 0.2 k/uL (0-0.7); Eosinophils % (A) 4 %; HCT 36.9 % (34.0-46.0); HGB 11.7 gm/dL (11.4-16.0); Lymphocytes # (A) 2.4 k/uL (1.0-4.8); Lymphocytes % (A) 37 %; MCH 28.2 pg (25.0-35.0); MCHC 31.6 g/dL (31.0-37.0); MCV 89.3 fL (80.0-100.0); Monocytes # (A) 0.3 k/uL (0-1.0); Monocytes % (A) 5 %; Neutrophils # (A) 3.3 k/uL (1.3-7.7); Neutrophils % (A) 51 %; Platelet Count 497 k/uL (150-450); RBC 4.13 m/uL (3.80-5.40); RDW 16.6 % (11.5-15.5); WBC 6.4 k/uL (3.8-10.6)
[2019-03-15 20:21] LABS: African American GFR (CKD) 103.9 (60.0-200.0); Albumin/Globulin Ratio 1.25 (1.60-3.17); Anion Gap 10.3 mmol/L (4.00-12.00); BUN/Creat Ratio 16.25 Ratio (12.00-20.00); Calcium 9.3 mg/dL (8.7-10.3); Carbon Dioxide 23.7 mmol/L (21.6-31.8); Globulin 3.2 g/dL (1.6-3.3); Total Bilirubin 0.4 mg/dL (0.2-1.2); Total Protein 7.2 g/dL (6.2-8.2)
== END | disposition home or self-care (01) ==
LOC: LABWHC1 14:27
PROVIDERS: ATTEND Internal Medicine Infectious Disease
DX: I38 Endocarditis, valve unspecified (principal); B19.20 Unspecified viral hepatitis C without hepatic coma
CPT/HCPCS: 36415; 80053; 85025; 87040; 87522

== ENCOUNTER → 2019-05-18 | Day surgery (SDC) | payer OTHER ==
[2019-05-17 09:20] VITALS: BMI 26.6
[~2019-05-18] MED LIST: BENZOCAINE SPRAY 1 CAN MUCOUS MEM ONE; BENZOCAINE SPRAY 1 CAN TOPICAL PRN; MIDAZOLAM 2 MG/2 ML VIAL IV ONE; SODIUM CHLORIDE 0.9% 500 ML 500 ML IV ONE; fentaNYL (PF) 50 MCG/ML 2 ML AMP ONE; fentaNYL (PF) 50 MCG/ML 5 ML AMP IVP ONE
[2019-05-18 07:30] VITALS: TEMP 97.8
[2019-05-18 07:42] LABS: INR 1.1 (<1.2); Prothrombin Time 11.4 sec (9.0-12.0)
[2019-05-18] MEDS: fentaNYL (PF) 50 MCG/ML 2 ML AMP IV ONE ×2 (08:46→08:50)
--- NOTE | 2019-05-18 09:05 | P.PCN ---
Date of Procedure: 05/18/19 Operative Findings: TRANSESOPHAGEAL ECHOCARDIOGRAM CLINICAL SUPPORT SPECIALIST: DUGLAS BOURNE MD, RPVI INDICATION: This is a 43-year-old female patient was diagnosed in the past with infective endocarditis with vegetation involving the anterior leaflet of tricuspid valve and severe tricuspid regurgitation. The patient received antibiotic for about 6-8 weeks. Repeated transthoracic echocardiogram in the office showed no evidence of vegetation brought moderate to severe tricuspid regurgitation. She was brought today to undergo a NASREEN for further clarification. SEDATION: Conscious sedation with a sedation duration of 15 minutes COMPLICATION: None PROCEDURE DESCRIPTION: After obtaining an informed consent, the patient was brought to transesophageal echocardiogram room. Pulse oximetry and heart monitors were attached to the patient. The patient throat was sprayed using lidocaine. The patient was turned into left lateral position. After that a bite guard was placed. After an appropriate conscious sedation was initiated, the transesophageal echocardiogram was advanced through a bite guard into the mid esophagus. A 2-D echocardiogram images, color Doppler images, continuous wave images, pulse-wave images, of various cardiac structure were performed. After that the transesophageal echocardiogram probe was advanced into the stomach and fixed to obtain transgastric view was. The probe was brought into the mid esophagus. Inter-atrial septum was interrogated using 2D images, color Doppler images, and then contrast study. After that transesophageal echocardiogram was withdrawn out and upon withdrawing the descending thoracic aorta all the way up to the arch was evaluated. FINDING: The left ventricular dimension and systolic function appeared to be within normal limits. Ejection fraction appears to be in the range of 55-60%. The right ventricle appeared to be of normal size and function. The left atrium and right atrium dimension appeared to be within normal limits. The left atrial appendage appears to be normal without any evidence of thrombus. The interatrial septum wasn't evaluated using only color flow Doppler and I did not using agitated saline because I had to pull the probe out because the patient was so agitated. The aortic valve is trileaflet valve without stenosis or regurgitation. The mitral valve seems to be normal with mild MR only. The tricuspid valve leaflets appear to be within normal limits without any evidence of vegetation but moderate tricuspid regurgitation. The pulmonic valve appeared to be within normal limits as well. Aortic root appears to be within normal limits for dimension. No evidence of pericardial effusion seen. CONCLUSION: 1. No evidence of vegetations seen on the tricuspid valve leaflets. There is moderate tricuspid regurgitation 2. Normal pulmonic valve without any evidence of vegetation. 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 Trileaflet aortic valve without stenosis or regurgitation 4. Normal mitral valve leaflets with mild MR only 5. Normal left ventricular dimension and systolic function 6. Normal right ventricular dimension and systolic function 7. Normal left atrial appendage without any thrombus 8. Intact interatrial septum by color flow Doppler. Agitated saline was not performed 9. No evidence of pericardial effusion 10. Normal aortic root dimension
[2019-05-18 09:07] VITALS: RESP 12
[2019-05-18 10:27] VITALS: BP 112/64
[2019-05-18 10:30] VITALS: PULSE 68
== END ==
LOC: CATHCVL 07:02
PROVIDERS: ATTEND Internal Medicine Interventional Cardiology
DX: I08.8 Other rheumatic multiple valve diseases (principal); Z86.79 Personal history of other diseases of the circulatory system; R45.1 Restlessness and agitation; I73.9 Peripheral vascular disease, unspecified; F17.210 Nicotine dependence, cigarettes, uncomplicated; Z86.711 Personal history of pulmonary embolism; Z79.01 Long term (current) use of anticoagulants; Z88.5 Allergy status to narcotic agent
CPT/HCPCS: 93312; 93320; 93325; 85610; J2250; J3010

== ENCOUNTER 2021-05-29 19:50 | Emergency (ER) | payer OTHER ==
[2021-05-29] MEDS ORDERED: ACETAMINOPHEN TAB 325 MG TAB PO STA (21:40)
--- NOTE | 2021-05-29 21:49 | ED ---
General Adult HPI - General Chief complaint: Neck Pain/Injury Stated complaint: Neck Pain/Lump Time Seen by Provider: 05/29/21 21:30 Source: patient, family, RN notes reviewed, old records reviewed Mode of arrival: ambulatory Limitations: no limitations - History of Present Illness Initial comments: 46-year-old female alert and oriented 4, very fidgety and unable to sit still, presents stating that she just noticed a lump on the left side of her neck today and is now tender to touch. She denies any other complaints. She denies any chest pain, shortness of breath, sore throat or cough. She denies any fevers, nausea vomiting or diarrhea. She states that she is an IV drug abuser and just used 30 minutes prior to coming to the emergency room today. She states that she injected into her left ankle. 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 She states that she was concerned that this could be a blood clot in her neck. She denies any IV drug use in her upper body. She does state that she seen a hand button splitter last week for concerns of fungal infection. She states that she has dried scale on her scalp with hair loss. He did prescribe her medications last week has not helped yet. -: days(s) (1) Location: neck (left sided) Radiation: non-radiation Severity scale (1-10): 7 Quality: other (sore) Improves with: none Worsens with: none Associated Symptoms: denies other symptoms Treatments Prior to Arrival: none - Related Data Home Medications Medication Instructions Recorded Confirmed Warfarin Sodium [Coumadin] 6 mg PO TUSA 05/17/19 05/18/19 Warfarin [Coumadin] 4 mg PO SUMOWETHFR 05/17/19 05/18/19 Allergies Allergy/AdvReac Type Severity Reaction Status Date / Time codeine Allergy Rash/Hives Verified 05/29/21 20:14 Review of Systems ROS Statement: Those systems with pertinent positive or pertinent negative responses have been documented in the HPI. ROS Other: All systems not noted in ROS Statement are negative. Past Medical History Past Medical History: Liver Disease, Musculoskeletal Disorder, Pulmonary Embolus (PE) Additional Past Medical History / Comment(s): back pain, hx. hep c-no tx. for yet, hx. endocarditis, sepsis & PE in February History of Any Multi-Drug Resistant Organisms: None Reported Past Surgical History: Section Additional Past Surgical History / Comment(s): C/S x3 Past Anesthesia/Blood Transfusion Reactions: No Reported Reaction Past Psychological History: No Psychological Hx Reported Smoking Status: Current every day smoker Past Alcohol Use History: None Reported Past Drug Use History: Heroin, IV Drug Use General Exam Limitations: no limitations General appearance: alert, in no apparent distress, anxious, other (Fidgety) Head exam: Present: atraumatic, normocephalic, normal inspection Eye exam: Present: normal appearance, EOMI ENT exam: Present: normal exam, normal oropharynx, mucous membranes moist, normal external ear exam Neck exam: Present: tenderness, full ROM, lymphadenopathy (Left anterior cervical lymph node swelling). Absent: meningismus, thyromegaly Respiratory exam: Present: normal lung sounds bilaterally. Absent: respiratory distress, wheezes, rales, rhonchi, stridor Cardiovascular Exam: Present: regular rate, normal rhythm, normal heart sounds. Absent: systolic murmur, diastolic murmur, rubs, gallop, clicks, JVD GI/Abdominal exam: Present: soft, normal bowel sounds. Absent: distended, tenderness, guarding, rebound, rigid Extremities exam: Present: full ROM, normal capillary refill, other (dried scale left innner ankle from IVDA use heroin 30 in [employer], no errythema; no splinter images across the nodes noted). Absent: tenderness, pedal edema, joint swelling Left Hand Wrist exam: Present: abrasion (proximal fifth metacarpal) Vascular: Present: normal capillary refill Back exam: Present: normal inspection, full ROM. Absent: tenderness, CVA tenderness (R), CVA tenderness (L), rash noted Neurological exam: Present: alert, oriented X3, normal gait Psychiatric exam: Present: normal affect, normal mood, anxious Skin exam: Present: warm, dry, intact, normal color, other (dried scales to scalp). Absent: rash, cyanosis, diaphoretic Course Vital Signs 05/29/21 05/29/21 20:10 23:54 Temperature 100.3 F H 98 F Pulse Rate 83 79 Respiratory 24 22 Rate Blood Pressure 117/74 127/78 O2 Sat by Pulse 100 97 Oximetry Medical Decision Making - Medical Decision Making This is a 46-year-old female, alert and oriented x4 and very fidgety. States that she used IV heroin 30 minutes prior to arrival by injecting into her left ankle. She states that she uses clean needles all the time, every time. She does have a history of endocarditis and pulmonary embolism. She states that she is no longer taking Coumadin. She denies any chest pain, shortness of breath, nausea, vomiting or diarrhea. She states that she did not know that she had a fever until she arrived in the emergency room. She presented only with a left sided lymph node swelling that she noticed today. She states she has not injected any heroin in this area. CBC shows no evidence of leukocytosis. There is no erythema surrounding the lymph node. Lungs sounds are clear to auscultation. There are no osler nodes or splinter hemorrhages noted. I did discuss his case with Dr. Burrows. I explained to the patient she should have follow-up and possible ultrasound of that lymph node uncalled for blood culture results. Return to the emergency room with any new or worsening symptoms including chest pain, difficulty breathing, fever that last more than 3 days. P atient and family member at bedside are agreeable to this plan of care. I did offer the patient information for addiction services and she declined. - Lab Data Result diagrams: 05/29/21 22:50 Lab Results 05/29/21 Range/Units 22:50 WBC 8.0 (3.8-10.6) k/uL RBC 4.47 (3.80-5.40) m/uL Hgb 13.3 (11.4-16.0) gm/dL Hct 40.8 (34.0-46.0) % MCV 91.2 (80.0-100.0) fL MCH 29.7 (25.0-35.0) pg MCHC 32.6 (31.0-37.0) g/dL RDW 13.5 (11.5-15.5) % Plt Count 411 (150-450) k/uL MPV 7.4 Neutrophils % 60 % Lymphocytes % 29 % Monocytes % 4 % Eosinophils % 3 % Basophils % 2 % Neutrophils # 4.8 (1.3-7.7) k/uL Lymphocytes # 2.3 (1.0-4.8) k/uL Monocytes # 0.3 (0-1.0) k/uL Eosinophils # 0.2 (0-0.7) k/uL Basophils # 0.1 (0-0.2) k/uL Disposition Clinical Impression: Lymph node enlargement, Fever Disposition: HOME SELF-CARE Condition: Good Instructions (If sedation given, give patient instructions): Fever in Adults (ED) Additional Instructions: Take Tylenol and or Motrin as needed for fevers or pain. Please stop using IV heroin, when using it always used a new clean needle. Return to the emergency room with any new or worsening symptoms including chest pain, difficulty breathing, or increased pain. Follow-up with your primary care doctor next week. Please call the hospital for results of your blood cultures in 3 days. Is patient prescribed a controlled substance at d/c from ED?: No Referrals: None,Stated [Primary Care Provider] - 1-2 days Mai Duncan MD [REFERRING] - 1-2 days Time of Disposition: 23:36
[2021-05-29 23:03] LABS: Basophils # (A) 0.1 k/uL (0-0.2); Basophils % (A) 2 %; Eosinophils # (A) 0.2 k/uL (0-0.7); Eosinophils % (A) 3 %; HCT 40.8 % (34.0-46.0); HGB 13.3 gm/dL (11.4-16.0); Lymphocytes # (A) 2.3 k/uL (1.0-4.8); Lymphocytes % (A) 29 %; MCH 29.7 pg (25.0-35.0); MCHC 32.6 g/dL (31.0-37.0); MCV 91.2 fL (80.0-100.0); Mean Platelet Volume 7.4; Monocytes # (A) 0.3 k/uL (0-1.0); Monocytes % (A) 4 %; Neutrophils # (A) 4.8 k/uL (1.3-7.7); Neutrophils % (A) 60 %; Platelet Count 411 k/uL (150-450); RBC 4.47 m/uL (3.80-5.40); RDW 13.5 % (11.5-15.5)
[2021-05-29 23:55] VITALS: BP 127/78; PULSE 79; RESP 22; TEMP 98
[2021-05-30 00:13] LABS: Erythrocyte Sedimentation Rate 29 mm/hr (0-20)
== END 2021-05-29 23:55 | disposition home or self-care (01) ==
LOC: EC 19:50
DX: R59.0 Localized enlarged lymph nodes (principal); R50.9 Fever, unspecified; F17.200 Nicotine dependence, unspecified, uncomplicated; Z79.01 Long term (current) use of anticoagulants; Z88.5 Allergy status to narcotic agent; Z86.711 Personal history of pulmonary embolism
CPT/HCPCS: 36415; 85025; 85652; 87040; 99283